=== PATIENT | female | born 1970 | race Caucasian/White ===

== ENCOUNTER → 2016-11-01 | Outpatient (REF) | payer OTHER ==
[~2016-11-01] MED LIST: /LOR25TA PO; ALBU17IN INH; CITA10TA2 PO; CLON0.5T PO; COLA100C2; CYCL10TA PO; DEME50TA; GEMF600T PO; HYDR7.5T38 PO; HYDRO50TAB PO; IBUP200T2 PO; KLON1TAB PO; LAMO100T PO; LAMO25CH PO; LOPI600T PO; LORA2TAB; MEDROL; METH10TA2 PO; NORCOTAB PO; PERC5TAB8; SOMA350T; SOMA350T PO; TIZANADINE PO; TRAZ100T; TYLE325T5 PO; VALI5TAB PO; VIST25CA PO; ZYPR10TA PO
== END | disposition home or self-care (01) ==
LOC: M LAB REF 16:43
PROVIDERS: ATTEND Physician Assistant
DX: L02.214 Cutaneous abscess of groin (principal)

== ENCOUNTER 2016-11-22 23:09 | Emergency (ER) | payer OTHER ==
--- NOTE | 2016-11-23 00:22 | EDDOCDS ---
Physician Documentation [facility] Name: Natan Baeza Age: 45 yrs Sex: Female : 1970 Arrival Date: 11/22/2016 Time: 23:09 Bed 11 Private MD: Ananth Sheets Disposition: 11/23/16 00:11 Discharged to Home/Self Care. Impression: Opioid abuse. - Condition is Stable. - Discharge Instructions: Opioid Withdrawal. - Medication Reconciliation, Local Pharmacy Hours form. - Follow up: Ananth Sheets; When: 2 - 3 days; Reason: Recheck today's complaints. Follow up: Addiction Services; When: 2 - 3 days; Reason: Recheck today's complaints. Follow up: [facility]; When: 2 - 3 days; Reason: Recheck today's complaints. - Problem is chronic. - Symptoms are unchanged. - Notes: You were seen in the ED requesting inpatient detox for your opioid abuse. Unfortunately this is not offered by [facility], however you were seen by social work and referrals for outpatient programs were provided - please call to arrange to be seen. Although offered outpatient medications to assist with withdrawal you have declined these at this time. Please call your psychiatrist and the referrals provided to you by social work in the morning to arrange to be seen for ongoing care. Return to the ED for any withdrawal symptoms, vomiting, loss of consciousness or any other concerns. Historical: - Allergies: cipro (Rash); Imitrexchest pain; - Home Meds: 1. lamotrigine 200mg in AM and PM, 100mg in midday Oral TChD (Last dose: 11/22/2016 14:30) 2. amantadine HCl 100 mg Oral cap 1 cap 2 times per day (Last dose: 11/22/2016 14:30) 3. prestique 50 mg twice a day (Last dose: 11/22/2016 14:30) 4. trazodone 25 mg Oral tab once daily 5. hydrocodone-acetaminophen 7.5-325 mg Oral tab 6. clonazepam 1 mg Oral tab 1 tab 3 times per day 7. carisoprodol 350 mg Oral tab 1 tab twice daily 8. propranolol 10 mg Oral tab 2 tabs twice a day - PMHx: Anxiety; Panic Attacks; Chronic Back pain; - PSHx: Ulner nerve repair, right arm; Tubal ligation; Back sugery; Benign tumor removed from throat; - Social history: Smoking status: Patient uses tobacco products, current every day smoker. No barriers to communication noted, The patient speaks fluent Burkinan, Speaks appropriately for age, Preferred Language: Burkinan. - Family history: Not pertinent. - : The pt / caregiver states he / she is not on anticoagulants. Home medication list is obtained from the patient. - Exposure Risk Screening:: None identified. 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 9 in. (175.26 cm) (R); 23:10 Body Mass Index 23.33 (71.67 kg, 175.26 cm) dd6 MDM: 23:49 Consult PFS/PSA/Software Configuration Engineer: Resources/Social Work ordered. br1 11/23 00:00 Consult PFS/PSA/Software Configuration Engineer: Resources/Social Work complete. br1 Signatures: Shalini CappsRN RN lf1 Evans Norton MD MD br1 Luann Young RN RN kas2 MTDD
--- NOTE | 2016-11-23 00:22 | EDDOCDS ---
Nurse's Notes [facility] Name: Natan Baeza Age: 45 yrs Sex: Female : 1970 Arrival Date: 11/22/2016 Time: 23:09 Bed 11 Private MD: Ananth Sheets Diagnosis: Opioid abuse Presentation: 11/22 23:20 Presenting complaint: Patient states: Pt reports she was instructed by [facility] and her 1 psychiatrist to report to the ED for detox from opiates (Vicodin, Oxycontin, Soma, Percocet, Morphine, Dilaudid, Morphine, Fentanyl) Pt. reports some are prescribed and some she obtains in other places. Pt. reports last use was 2 hours ago was 40mg Oxycontin and 3 Soma tabs. Pt. reports she has been using regularly since 2002. Pt reports she has chronic low back pain. Mental Health Triage Level: Level 1- Pt displays no suicidal or homicidal ideations and does not appear to be a danger to self or others. Adult Sepsis Screening: The patient does not have new or worsening altered mentation. Patient's respiratory rate is less than 22. Systolic blood pressure is greater than 100. Patient has a qSOFA score of 0- Negative Sepsis Screen. Suicide/Homicide risk assessment- the patient denies having any suicidal and/or homicidal ideations and does not present with any other emotional, behavioral or mental health complaints. Status: Patient is not a nutrition services assistant or dependent. Transition of care: patient was not received from another setting of care. 23:20 Acuity: NAVNEET Level 3 lf1 23:20 Method Of Arrival: Walkin/Carried/Asstd 1 Triage Assessment: 23:34 General: Appears distressed, Behavior is anxious, restless. Pain: Location: low back lf1 pain Pain currently is 4 out of 10 on a pain scale. HIV screening NA for this visit Offered previously. Neurological: Level of Consciousness is awake, alert, Oriented to person, place, time. EENT: No deficits noted. Respiratory: Respiratory effort is even, unlabored. GI: Denies nausea, vomiting. Derm: Skin is intact. Injury Description: No known injury. MARKETING AND OUTREACH COORDINATOR: 23:34 5, 1, Living 4, LMP 11/18/2016 1 Historical: - Allergies: cipro (Rash); Imitrexchest pain; - Home Meds: 1. lamotrigine 200mg in AM and PM, 100mg in midday Oral TChD (Last dose: 11/22/2016 14:30) 2. amantadine HCl 100 mg Oral cap 1 cap 2 times per day (Last dose: 11/22/2016 14:30) 3. prestique 50 mg twice a day (Last dose: 11/22/2016 14:30) 4. trazodone 25 mg Oral tab once daily 5. hydrocodone-acetaminophen 7.5-325 mg Oral tab 6. clonazepam 1 mg Oral tab 1 tab 3 times per day 7. carisoprodol 350 mg Oral tab 1 tab twice daily 8. propranolol 10 mg Oral tab 2 tabs twice a day - PMHx: Anxiety; Panic Attacks; Chronic Back pain; - PSHx: Ulner nerve repair, right arm; Tubal ligation; Back sugery; Benign tumor removed from throat; - Social history: Smoking status: Patient uses tobacco products, current every day smoker. No barriers to communication noted, The patient speaks fluent Singaporean, Speaks appropriately for age, Preferred Language: Singaporean. - Family history: Not pertinent. - : The pt / caregiver states he / she is not on anticoagulants. Home medication list is obtained from the patient. - Exposure Risk Screening:: None identified. Screenin:48 Screening information is obtained from the patient. Fall risk: No risks identified. kas2 Assistance ADL's: requires no assistance with activities of daily living. Abuse/DV Screen: The patient / caregiver reports he/she is: not in a situation that causes fear, pain or injury. Nutritional screening: No deficits noted. Advance Directives: Currently, there is no health care proxy. There is no active DNR order. There is no living will. There is no Power of Cover Stripper. home support is adequate. Assessment: 23:47 General: Appears in no apparent distress, comfortable, well nourished, well groomed, kas2 Behavior is appropriate for age, cooperative. Pain: Denies pain. Neurological: Level of Consciousness is awake, alert, Oriented to person, place, time. Cardiovascular: Rhythm is regular. Respiratory: Airway is patent Respiratory effort is even, unlabored, Respiratory pattern is regular, symmetrical, Breath sounds are clear bilaterally. Derm: Skin is intact, Skin is dry, Skin is pink, warm & dry. Skin temperature is warm. Social Work Consult: 11/23 00:12 Social Work Note: PSA met with pt to offer drug detox/rehab referral info, pt presents cl to ED c/o opiate abuse as well as other drugs, denies any SI/HI/AH/VH, denies ETOH abuse, has long hx of polysubstance abuse, has been in prior detox facilities in past. Pt reports she contacted [facility] whom instructed her to come to ED for "detox", ED MD and PSA explained detox not available at [facility], PSA offered referral info. Pt is accompanied by attentive friend, no safety issues identified, ED Physician offered meds for w/d sx's as well, pt to f/u with [facility] tomorrow to try to arrange drug tx, no further interventions required. Vital Signs: 11/22 23:10 BP 123 / 60; Pulse 88; Resp 18 S; Temp 97.4(T); Pulse Ox 100% on R/A; Weight 71.67 kg dd6 (R); Height 5 ft. 9 in. (175.26 cm) (R); 23:10 Body Mass Index 23.33 (71.67 kg, 175.26 cm) dd6 Vitals: 23:10 Log In Time: November 22, 2016 at 23:08. dd6 ED Course: 23:10 Patient visited by Suleiman Orlando PCA. dd6 23:10 Ananth Sheets is Private Physician. dd6 23:10 Patient moved to Waiting dd6 23:11 Patient moved to Pre RCE dd6 23:26 Triage Initiated lf1 23:37 Luann Young RN is Primary Nurse. lf1 23:37 Patient moved to 11 lf1 23:38 Evans Norton MD is Attending Physician. br1 23:47 Patient visited by Evans Norton MD. br1 23:48 Patient visited by Luann Young RN. kas2 11/23 00:10 Ananth Sheets is Referral Physician. br1 00:10 Addiction Services is Referral Physician. br1 00:10 [facility] is Referral Physician. br1 00:11 Patient visited by Luann Young RN. kas2 00:20 The patient / caregiver is instructed regarding the plan of care and ED course. kas2 00:20 No IV's were initiated during this patient's visit. No procedures done that require kas2 assistance. 00:21 Patient visited by Luann Young RN. kas2 Order Results: There are currently no results for this order. Outcome: 00:11 Discharge ordered by Provider. br1 00:20 Discharge Assessment: patient administered narcotics - no. The following High Risk kas2 Discharge criteria are identified: None. Discharged to home ambulatory, with friend. Condition: good Condition: stable Condition: improved. No special radiology studies were completed. Property :Personal belongings accompany Pt. 00:21 Patient left the ED. kas2 Signatures: Hunter Khan, PSA PSA cl Shalini CappsRN RN lf1 Evans Norotn MD MD br1 Suleiman Orlando, FACILITY MAINTENANCE MANAGER FACILITY MAINTENANCE MANAGER dd6 Luann Young,RN RN kas2 MTDD
--- NOTE | 2016-11-25 01:22 | EDDOCDS ---
Physician Documentation [facility] Name: Natan Baeza Age: 45 yrs Sex: Female : 1970 Arrival Date: 11/22/2016 Time: 23:09 Bed 11 Private MD: Ananth Sheets Disposition: 11/23/16 00:11 Discharged to Home/Self Care. Impression: Opioid abuse. - Condition is Stable. - Discharge Instructions: Opioid Withdrawal. - Medication Reconciliation, Local Pharmacy Hours form. - Follow up: Ananth Sheets; When: 2 - 3 days; Reason: Recheck today's complaints. Follow up: Addiction Services; When: 2 - 3 days; Reason: Recheck today's complaints. Follow up: [facility]; When: 2 - 3 days; Reason: Recheck today's complaints. - Problem is chronic. - Symptoms are unchanged. - Notes: You were seen in the ED requesting inpatient detox for your opioid abuse. Unfortunately this is not offered by [facility], however you were seen by social work and referrals for outpatient programs were provided - please call to arrange to be seen. Although offered outpatient medications to assist with withdrawal you have declined these at this time. Please call your psychiatrist and the referrals provided to you by social work in the morning to arrange to be seen for ongoing care. Return to the ED for any withdrawal symptoms, vomiting, loss of consciousness or any other concerns. Historical: - Allergies: cipro (Rash); Imitrexchest pain; - Home Meds: 1. lamotrigine 200mg in AM and PM, 100mg in midday Oral TChD (Last dose: 11/22/2016 14:30) 2. amantadine HCl 100 mg Oral cap 1 cap 2 times per day (Last dose: 11/22/2016 14:30) 3. prestique 50 mg twice a day (Last dose: 11/22/2016 14:30) 4. trazodone 25 mg Oral tab once daily 5. hydrocodone-acetaminophen 7.5-325 mg Oral tab 6. clonazepam 1 mg Oral tab 1 tab 3 times per day 7. carisoprodol 350 mg Oral tab 1 tab twice daily 8. propranolol 10 mg Oral tab 2 tabs twice a day - PMHx: Anxiety; Panic Attacks; Chronic Back pain; - PSHx: Ulner nerve repair, right arm; Tubal ligation; Back sugery; Benign tumor removed from throat; - Social history: Smoking status: Patient uses tobacco products, current every day smoker. No barriers to communication noted, The patient speaks fluent Maltese, Speaks appropriately for age, Preferred Language: Maltese. - Family history: Not pertinent. - : The pt / caregiver states he / she is not on anticoagulants. Home medication list is obtained from the patient. - Exposure Risk Screening:: None identified. MAPPING SPECIALIST: 11/22 23:34 5, 1, Living 4, LMP 11/18/2016 lf1 Vital Signs: 23:10 BP 123 / 60; Pulse 88; Resp 18 S; Temp 97.4(T); Pulse Ox 100% on R/A; Weight 71.67 kg / dd6 158.01 lbs (R); Height 5 ft. 9 in. (175.26 cm) (R); 23:10 Body Mass Index 23.33 (71.67 kg, 175.26 cm) dd6 MDM: 23:49 Consult PFS/PSA/Can Sterilizer: Resources/Social Work ordered. br1 11/23 00:00 Consult PFS/PSA/Can Sterilizer: Resources/Social Work complete. br1 09:21 T-Sheet-- Draft Copy was scanned into [employer] and attached to record. gb Signatures: Aliza Milner, Reg Reg gb Shalini Capps RN RN lf1 Evans Norton MD MD br1 Luann Young RN RN kas2 The chart was reviewed and I authenticate all verbal orders and agree with the evaluation and treatment provided.Attachments: 09:21 T-Sheet-- Draft Copy gb Chart Complete MTDD
--- NOTE | 2016-11-25 01:22 | EDDOCDS ---
[facility] Name: Natan Baeza Age: 45 yrs Sex: Female : 1970 Arrival Date: 11/22/2016 Time: 23:09 Bed 11 Private MD: Ananth Sheets Diagnosis: Opioid abuse Presentation: 11/22 23:20 Presenting complaint: Patient states: Pt reports she was instructed by [facility] and her 1 psychiatrist to report to the ED for detox from opiates (Vicodin, Oxycontin, Soma, Percocet, Morphine, Dilaudid, Morphine, Fentanyl) Pt. reports some are prescribed and some she obtains in other places. Pt. reports last use was 2 hours ago was 40mg Oxycontin and 3 Soma tabs. Pt. reports she has been using regularly since 2002. Pt reports she has chronic low back pain. Mental Health Triage Level: Level 1- Pt displays no suicidal or homicidal ideations and does not appear to be a danger to self or others. Adult Sepsis Screening: The patient does not have new or worsening altered mentation. Patient's respiratory rate is less than 22. Systolic blood pressure is greater than 100. Patient has a qSOFA score of 0- Negative Sepsis Screen. Suicide/Homicide risk assessment- the patient denies having any suicidal and/or homicidal ideations and does not present with any other emotional, behavioral or mental health complaints. Status: Patient is not a service girl or dependent. Transition of care: patient was not received from another setting of care. 23:20 Acuity: NAVNEET Level 3 lf1 23:20 Method Of Arrival: Walkin/Carried/Asstd 1 Triage Assessment: 23:34 General: Appears distressed, Behavior is anxious, restless. Pain: Location: low back lf1 pain Pain currently is 4 out of 10 on a pain scale. HIV screening NA for this visit Offered previously. Neurological: Level of Consciousness is awake, alert, Oriented to person, place, time. EENT: No deficits noted. Respiratory: Respiratory effort is even, unlabored. GI: Denies nausea, vomiting. Derm: Skin is intact. Injury Description: No known injury. 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 lamotrigine 200mg in AM and PM, 100mg in midday Oral TChD (Last dose: 11/22/2016 14:30) 2. amantadine HCl 100 mg Oral cap 1 cap 2 times per day (Last dose: 11/22/2016 14:30) 3. prestique 50 mg twice a day (Last dose: 11/22/2016 14:30) 4. trazodone 25 mg Oral tab once daily 5. hydrocodone-acetaminophen 7.5-325 mg Oral tab 6. clonazepam 1 mg Oral tab 1 tab 3 times per day 7. carisoprodol 350 mg Oral tab 1 tab twice daily 8. propranolol 10 mg Oral tab 2 tabs twice a day - PMHx: Anxiety; Panic Attacks; Chronic Back pain; - PSHx: Ulner nerve repair, right arm; Tubal ligation; Back sugery; Benign tumor removed from throat; - Social history: Smoking status: Patient uses tobacco products, current every day smoker. No barriers to communication noted, The patient speaks fluent [place]ian, Speaks appropriately for age, Preferred Language: [place]ian. - Family history: Not pertinent. - : The pt / caregiver states he / she is not on anticoagulants. Home medication list is obtained from the patient. - Exposure Risk Screening:: None identified. Screenin:48 Screening information is obtained from the patient. Fall risk: No risks identified. kas2 Assistance ADL's: requires no assistance with activities of daily living. Abuse/DV Screen: The patient / caregiver reports he/she is: not in a situation that causes fear, pain or injury. Nutritional screening: No deficits noted. Advance Directives: Currently, there is no health care proxy. There is no active DNR order. There is no living will. There is no Power of Kier Drier. home support is adequate. Assessment: 23:47 General: Appears in no apparent distress, comfortable, well nourished, well groomed, kas2 Behavior is appropriate for age, cooperative. Pain: Denies pain. Neurological: Level of Consciousness is awake, alert, Oriented to person, place, time. Cardiovascular: Rhythm is regular. Respiratory: Airway is patent Respiratory effort is even, unlabored, Respiratory pattern is regular, symmetrical, Breath sounds are clear bilaterally. Derm: Skin is intact, Skin is dry, Skin is pink, warm & dry. Skin temperature is warm. Social Work Consult: 11/23 00:12 Social Work Note: [facility] met with pt to offer drug detox/rehab referral info, pt presents cl to ED c/o opiate abuse as well as other drugs, denies any SI/HI/AH/VH, denies ETOH abuse, has long hx of polysubstance abuse, has been in prior detox facilities in past. Pt reports she contacted [facility] whom instructed her to come to ED for "detox", ED MD and PSA explained detox not available at [facility], PSA offered referral info. Pt is accompanied by attentive friend, no safety issues identified, ED Physician offered meds for w/d sx's as well, pt to f/u with [facility] tomorrow to try to arrange drug tx, no further interventions required. Vital Signs: 11/22 23:10 BP 123 / 60; Pulse 88; Resp 18 S; Temp 97.4(T); Pulse Ox 100% on R/A; Weight 71.67 kg dd6 (R); Height 5 ft. 9 in. (175.26 cm) (R); 23:10 Body Mass Index 23.33 (71.67 kg, 175.26 cm) dd6 Vitals: 23:10 Log In Time: November 22, 2016 at 23:08. dd6 ED Course: 23:10 Patient visited by Suleiman Orlando PCA. dd6 23:10 Ananth Sheets is Private Physician. dd6 23:10 Patient moved to Waiting dd6 23:11 Patient moved to Pre RCE dd6 23:26 Triage Initiated lf1 23:37 Luann Young RN is Primary Nurse. lf1 23:37 Patient moved to 11 lf1 23:38 Evans Norton MD is Attending Physician. br1 23:47 Patient visited by Evans Norton MD. br1 23:48 Patient visited by Luann Young RN. kas2 11/23 00:10 Ananth Sheets is Referral Physician. br1 00:10 Addiction Services is Referral Physician. br1 00:10 [facility] is Referral Physician. br1 00:11 Patient visited by Luann Young RN. kas2 00:20 The patient / caregiver is instructed regarding the plan of care and ED course. kas2 00:20 No IV's were initiated during this patient's visit. No procedures done that require kas2 assistance. 00:21 Patient visited by Luann Young RN. kas2 00:35 Patient name changed from Gayelynn\\S\\\\S\\Babyak\\S\\ to Gayelynn\\S\\ \\S\\Babyak. EDMS 09:21 T-Sheet-- Draft Copy was scanned into [employer] and attached to record. Order Results: There are currently no results for this order. Outcome: 00:11 Discharge ordered by Provider. br1 00:20 Discharge Assessment: patient administered narcotics - no. The following High Risk [facility]2 Discharge criteria are identified: None. Discharged to home ambulatory, with friend. Condition: good Condition: stable Condition: improved. No special radiology studies were completed. Property :Personal belongings accompany Pt. 00:21 Patient left the ED. kas2 Signatures: Dispatcher [employer] EDVT Hunter Khan, PSA PSA cl Aliza Milner, Reg Reg Shalini Capps,RN RN lf1 Evans Norton MD MD br1 Suleiman Orlando, GOLF PROFESSIONAL GOLF PROFESSIONAL dd6 Luann Young,RN RN kas2 Chart Complete MTDD
--- NOTE | 2016-11-25 01:22 | EDDOCDS ---
Physician Documentation [facility] Name: Natan Baeza Age: 45 yrs Sex: Female : 1970 Arrival Date: 11/22/2016 Time: 23:09 Bed 11 Private MD: Ananth Sheets Disposition: 11/23/16 00:11 Discharged to Home/Self Care. Impression: Opioid abuse. - Condition is Stable. - Discharge Instructions: Opioid Withdrawal. - Medication Reconciliation, Local Pharmacy Hours form. - Follow up: Ananth Sheets; When: 2 - 3 days; Reason: Recheck today's complaints. Follow up: Addiction Services; When: 2 - 3 days; Reason: Recheck today's complaints. Follow up: [facility]; When: 2 - 3 days; Reason: Recheck today's complaints. - Problem is chronic. - Symptoms are unchanged. - Notes: You were seen in the ED requesting inpatient detox for your opioid abuse. Unfortunately this is not offered by [facility], however you were seen by social work and referrals for outpatient programs were provided - please call to arrange to be seen. Although offered outpatient medications to assist with withdrawal you have declined these at this time. Please call your psychiatrist and the referrals provided to you by social work in the morning to arrange to be seen for ongoing care. Return to the ED for any withdrawal symptoms, vomiting, loss of consciousness or any other concerns. Historical: - Allergies: cipro (Rash); Imitrexchest pain; - Home Meds: 1. lamotrigine 200mg in AM and PM, 100mg in midday Oral TChD (Last dose: 11/22/2016 14:30) 2. amantadine HCl 100 mg Oral cap 1 cap 2 times per day (Last dose: 11/22/2016 14:30) 3. prestique 50 mg twice a day (Last dose: 11/22/2016 14:30) 4. trazodone 25 mg Oral tab once daily 5. hydrocodone-acetaminophen 7.5-325 mg Oral tab 6. clonazepam 1 mg Oral tab 1 tab 3 times per day 7. carisoprodol 350 mg Oral tab 1 tab twice daily 8. propranolol 10 mg Oral tab 2 tabs twice a day - PMHx: Anxiety; Panic Attacks; Chronic Back pain; - PSHx: Ulner nerve repair, right arm; Tubal ligation; Back sugery; Benign tumor removed from throat; - Social history: Smoking status: Patient uses tobacco products, current every day smoker. No barriers to communication noted, The patient speaks fluent Namibian, Speaks appropriately for age, Preferred Language: Namibian. - Family history: Not pertinent. - : The pt / caregiver states he / she is not on anticoagulants. Home medication list is obtained from the patient. - Exposure Risk Screening:: None identified. 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 9 in. (175.26 cm) (R); 23:10 Body Mass Index 23.33 (71.67 kg, 175.26 cm) dd6 MDM: 23:49 Consult PFS/PSA/Retail Performance Specialist: Resources/Social Work ordered. br1 11/23 00:00 Consult PFS/PSA/Retail Performance Specialist: Resources/Social Work complete. br1 09:21 T-Sheet-- Draft Copy was scanned into [employer] and attached to record. gb Signatures: Aliza Milner, Reg Reg gb Shalini Capps RN RN lf1 Evans Norton MD MD br1 Luann Young RN RN kas2 The chart was reviewed and I authenticate all verbal orders and agree with the evaluation and treatment provided.Attachments: 09:21 T-Sheet-- Draft Copy gb Chart Complete MTDD
== END 2016-11-23 00:21 | disposition home or self-care (01) ==
LOC: M ED 23:09
DX: F11.10 Opioid abuse, uncomplicated (principal); F41.9 Anxiety disorder, unspecified; G89.4 Chronic pain syndrome; M54.9 Dorsalgia, unspecified; F17.200 Nicotine dependence, unspecified, uncomplicated; Z79.899 Other long term (current) drug therapy; Z88.1 Allergy status to other antibiotic agents; Z88.8 Allergy status to other drugs, medicaments and biological substances

== ENCOUNTER → 2017-08-14 | Outpatient (CLI) | payer OTHER ==
[2017-08-14 11:50] LABS: MEAN CORPUSCULAR HEMOGLOBIN 32.5 pg (27.0-33.0); MEAN CORPUSCULAR HGB CONC 34.3 g/dl (32.0-36.5); MEAN CORPUSCULAR VOLUME 94.8 fl (80.0-96.0); WHITE BLOOD COUNT 8.2 10^3/uL (4.0-10.0)
[2017-08-14 12:22] LABS: ALBUMIN 3.9 GM/DL (3.2-5.2); ALBUMIN/GLOBULIN RATIO 1.15 (1.00-1.93); ALKALINE PHOSPHATASE 80 U/L (45-117); ALT/SGPT 15 U/L (12-78); ANION GAP 8 MEQ/L (8-16); AST/SGOT 7 U/L (15-37); BILIRUBIN,TOTAL 0.4 MG/DL (0.2-1.0); BLOOD UREA NITROGEN 4 MG/DL (7-18); CALCIUM LEVEL 8.7 MG/DL (8.5-10.1); CARBON DIOXIDE LEVEL 28 MEQ/L (21-32); CHLORIDE LEVEL 102 MEQ/L (98-107); CHOLESTEROL LEVEL 235 MG/DL (<200); CREATININE FOR GFR 0.87 MG/DL (0.55-1.02); GLOMERULAR FILTRATION RATE > 60.0 (>58); GLUCOSE, FASTING 78 MG/DL (70-105); POTASSIUM SERUM 4.1 MEQ/L (3.5-5.1); SODIUM LEVEL 138 MEQ/L (136-145); THYROXINE (T4) 8.3 UG/DL (4.5-12.0); TOTAL PROTEIN 7.3 GM/DL (6.4-8.2); TRIGLYCERIDES LEVEL 404 MG/DL (<150)
--- NOTE | 2017-08-14 22:46 | ECGEPIP ---
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 No significant change compared with 10/24/2016. Electronically Signed On 08-14-2017 22:46:20 EDT by Santiago Quintanilla
--- NOTE | 2017-08-15 01:58 | REP ---
Clinical: Chest pain. COPD. Comparison: 10/24/2016 . Technique: PA and lateral. Findings: The mediastinum and cardiac silhouette are normal. The lung cervantes are clear and without acute consolidation, effusion, or pneumothorax. The skeletal structures are intact and normal. Impression: 1. No acute cardiopulmonary process. Signed by Kendrick Null MD 08/15/2017 01:50 A
== END ==
LOC: M LAB 11:06
PROVIDERS: ATTEND Family Medicine
DX: J44.9 Chronic obstructive pulmonary disease, unspecified (principal); D64.9 Anemia, unspecified

== ENCOUNTER 2017-12-06 12:46 | Emergency (ER) | payer OTHER ==
[2017-12-06] MEDS: NORCO, ANEXSIA 5/325MG TABLET (HYDROcodone/ACETAMINOPHEN) PO (14:01)
== END 2017-12-06 14:50 | disposition home or self-care (01) ==
LOC: M ED 12:46
DX: S49.92XA Unspecified injury of left shoulder and upper arm, initial encounter (principal); X50.9XXA Other and unspecified overexertion or strenuous movements or postures, initial encounter; Y92.89 Other specified places as the place of occurrence of the external cause; F17.210 Nicotine dependence, cigarettes, uncomplicated; Z88.1 Allergy status to other antibiotic agents; Z88.8 Allergy status to other drugs, medicaments and biological substances; Z88.5 Allergy status to narcotic agent; Z98.890 Other specified postprocedural states
CPT/HCPCS: 73030

== ENCOUNTER 2018-03-17 17:36 | Emergency (ER) | payer SELFPAY, OTHER ==
[2018-03-17] MEDS: NS 1,000 ML IV (19:15)
[2018-03-17] MEDS: ONDANSETRON 4MG/2ML VIAL (J2405) IV (19:15)
[2018-03-17 19:16] LABS: BASO % 0.2 % (0.0-1.0); EOS % 0.1 % (0.0-3.0); HEMATOCRIT 37.2 % (36.0-47.0); HEMOGLOBIN 12.1 g/dl (12.0-15.5); IMMATURE GRANULOCYTE % 0.5 % (0-3.0); LYMPH % 7.4 % (24.0-44.0); MEAN CORPUSCULAR HEMOGLOBIN 31.2 pg (27.0-33.0); MEAN CORPUSCULAR HGB CONC 32.5 g/dl (32.0-36.5); MEAN CORPUSCULAR VOLUME 95.9 fl (80.0-96.0); MONO # 1.3 10^3/uL (0.0-0.8); MONO % 10.2 % (0.0-5.0); NEUTROPHILS # 10.8 10^3/uL (1.8-7.7); NEUTROPHILS % 81.6 % (36.0-66.0); PLATELET COUNT, AUTOMATED 243 10^3/uL (150-450); RED BLOOD COUNT 3.88 10^6/uL (4.00-5.40); RED CELL DISTRIBUTION WIDTH 14.8 % (11.5-14.5); WHITE BLOOD COUNT 13.2 10^3/uL (4.0-10.0)
[2018-03-17 19:25] LABS: KETONE, URINE AUTO RFX NEGATIVE (NEGATIVE); NITRITE, URINE AUTO RFX NEGATIVE (NEGATIVE); RBC, URINE AUTO RFX 34 /HPF (0-3); SPECIFIC GRAVITY UR AUTO RFX 1.015 (1.002-1.035); SQUAM EPITHELIAL CELL UR AURFX 2 /HPF (0-6)
[2018-03-17 19:26] LABS: LEUKOCYTE ESTERASE UR AUTO RFX TRACE (NEGATIVE); WBC, URINE AUTO RFX 29 /HPF (0-3)
[2018-03-17 19:47] LABS: ANION GAP 6 MEQ/L (8-16); BLOOD UREA NITROGEN 9 MG/DL (7-18); CARBON DIOXIDE LEVEL 27 MEQ/L (21-32); CHLORIDE LEVEL 105 MEQ/L (98-107); CREATININE FOR GFR 0.88 MG/DL (0.55-1.30); GLOMERULAR FILTRATION RATE > 60.0 (>58); GLUCOSE, FASTING 102 MG/DL (70-100); POTASSIUM SERUM 4.3 MEQ/L (3.5-5.1); SODIUM LEVEL 138 MEQ/L (136-145)
[2018-03-17 19:47] LABS: LACTIC ACID SEPSIS PROTOCOL 0.7 MMOL/L (0.4-2.0)
[2018-03-17] MEDS ORDERED: ISOVUE-370 76% 100ML VIAL (Q9967) As Ordered (20:08)
[2018-03-17] MEDS: MORPHINE 4 MG/ML 1ML VIAL/SYRINGE (J2270) IV (20:46)
[2018-03-17] MEDS: BACTRIM 160MG/800MG DS TAB PO (21:50)
== END 2018-03-17 21:56 | disposition home or self-care (01) ==
LOC: M ED 17:36
DX: N30.11 Interstitial cystitis (chronic) with hematuria (principal); N10 Acute pyelonephritis; R50.9 Fever, unspecified; F17.210 Nicotine dependence, cigarettes, uncomplicated; Z88.1 Allergy status to other antibiotic agents; Z88.2 Allergy status to sulfonamides
CPT/HCPCS: J2270

== ENCOUNTER 2018-06-17 16:30 | Emergency (ER) | payer SELFPAY ==
[2018-06-17] MEDS: ALBUTEROL SULFATE 2.5 MG/0.5 ML INH NEB SOLN NEB (17:15)
[2018-06-17] MEDS: KETOROLAC 30 MG/ML VIAL (J1885) IV (17:25)
[2018-06-17 17:38] LABS: BASO % 0.5 % (0.0-1.0); EOS % 0.3 % (0.0-3.0); HEMATOCRIT 42.1 % (36.0-47.0); HEMOGLOBIN 14.1 g/dl (12.0-15.5); IMMATURE GRANULOCYTE % 0.3 % (0-3.0); LYMPH # 3.4 10^3/uL (1.5-4.5); LYMPH % 42.8 % (24.0-44.0); MEAN CORPUSCULAR HEMOGLOBIN 31.6 pg (27.0-33.0); MEAN CORPUSCULAR HGB CONC 33.5 g/dl (32.0-36.5); MEAN CORPUSCULAR VOLUME 94.4 fl (80.0-96.0); MONO # 0.5 10^3/uL (0.0-0.8); MONO % 6.4 % (0.0-5.0); NEUTROPHILS # 3.9 10^3/uL (1.8-7.7); NEUTROPHILS % 49.7 % (36.0-66.0); PLATELET COUNT, AUTOMATED 274 10^3/uL (150-450); RED BLOOD COUNT 4.46 10^6/uL (4.00-5.40); RED CELL DISTRIBUTION WIDTH 13.7 % (11.5-14.5); WHITE BLOOD COUNT 7.8 10^3/uL (4.0-10.0)
[2018-06-17 17:41] LABS: KETONE, URINE AUTO RFX NEGATIVE (NEGATIVE); LEUKOCYTE ESTERASE UR AUTO RFX NEGATIVE (NEGATIVE); NITRITE, URINE AUTO RFX NEGATIVE (NEGATIVE); RBC, URINE AUTO RFX 1 /HPF (0-3); SPECIFIC GRAVITY UR AUTO RFX 1.005 (1.002-1.035); SQUAM EPITHELIAL CELL UR AURFX 1 /HPF (0-6); WBC, URINE AUTO RFX 1 /HPF (0-3)
[2018-06-17 17:51] LABS: CONTROL LINE HCG INT CTR LINE PRESENT; HCG, SERUM QUALITATIVE NEGATIVE (NEGATIVE)
[2018-06-17 17:59] LABS: ALBUMIN 4.1 GM/DL (3.2-5.2); ALKALINE PHOSPHATASE 79 U/L (45-117); ALT/SGPT 17 U/L (12-78); AMYLASE 55 U/L (25-115); ANION GAP 9 MEQ/L (8-16); AST/SGOT 13 U/L (7-37); BILIRUBIN,DIRECT < 0.1 MG/DL (0.0-0.2); BILIRUBIN,TOTAL 0.3 MG/DL (0.2-1.0); BLOOD UREA NITROGEN 8 MG/DL (7-18); CARBON DIOXIDE LEVEL 26 MEQ/L (21-32); CHLORIDE LEVEL 104 MEQ/L (98-107); CREATININE FOR GFR 0.84 MG/DL (0.55-1.30); GLOMERULAR FILTRATION RATE > 60.0 (>58); GLUCOSE, FASTING 80 MG/DL (70-100); LIPASE 126 U/L (73-393); POTASSIUM SERUM 4.5 MEQ/L (3.5-5.1); SODIUM LEVEL 139 MEQ/L (136-145); TOTAL PROTEIN 8.2 GM/DL (6.4-8.2)
[2018-06-17] MEDS: MORPHINE 4 MG/ML 1ML VIAL/SYRINGE (J2270) IV ×2 (18:38→21:34)
[2018-06-17] MEDS: diphenhydrAMINE INJ 50MG/ML VIAL (J1200) IV (21:21)
[2018-06-17] MEDS: OXYCODONE/APAP 5MG/325MG(BULK FOR ED) 1 TABLET PO (23:03)
== END 2018-06-17 23:05 | disposition home or self-care (01) ==
LOC: M ED 16:30
DX: K83.8 Other specified diseases of biliary tract (principal); R10.9 Unspecified abdominal pain; K82.8 Other specified diseases of gallbladder; E78.5 Hyperlipidemia, unspecified; K56.0 Paralytic ileus; F41.9 Anxiety disorder, unspecified; F32.9 Major depressive disorder, single episode, unspecified; Z72.0 Tobacco use; Z88.8 Allergy status to other drugs, medicaments and biological substances; Z88.5 Allergy status to narcotic agent
CPT/HCPCS: J2270

== ENCOUNTER → 2018-06-19 | Outpatient (CLI) | payer SELFPAY | LOC: M RAD 12:51 | DX: K83.1 Obstruction of bile duct (principal) ==

== ENCOUNTER 2018-11-13 22:07 | Emergency (ER) | payer MEDICAID, SELFPAY ==
[~2018-11-13] VITALS: Ht 175.3 cm; Wt 70.5 kg
[2018-11-13 22:07] VITALS: BP 107/53
[~2018-11-13 22:07] MED LIST changes: +BACT800T5 PO; +BENA25CA4 PO; +IBUP-1022 PO; +NITR-67 PO; +PHEN-501 PO; +VICO5TAB16 PO
[2018-11-13] MEDS ORDERED: ONDANSETRON 4MG/2ML VIAL (J2405) IV ONE (22:45)
[2018-11-13] MEDS ORDERED: NS 1,000 ML IV ONE (22:45)
[2018-11-13] MEDS ORDERED: KETOROLAC 30 MG/ML VIAL (J1885) IV ONE (22:45)
[2018-11-13 23:06] LABS: BASO % 0.4 % (0.0-1.0); EOS % 0.6 % (0.0-3.0); HEMATOCRIT 39.3 % (36.0-47.0); LYMPH # 2.2 10^3/uL (1.5-4.5); LYMPH % 32.3 % (24.0-44.0); MEAN CORPUSCULAR HEMOGLOBIN 31.8 pg (27.0-33.0); MEAN CORPUSCULAR HGB CONC 33.1 g/dl (32.0-36.5); MEAN CORPUSCULAR VOLUME 96.1 fl (80.0-96.0); MONO # 0.6 10^3/uL (0.0-0.8); MONO % 8.1 % (0.0-5.0); NEUTROPHILS % 58.3 % (36.0-66.0); PLATELET COUNT, AUTOMATED 206 10^3/uL (150-450); RED BLOOD COUNT 4.09 10^6/uL (4.00-5.40); WHITE BLOOD COUNT 6.8 10^3/uL (4.0-10.0)
[2018-11-13 23:37] LABS: ALBUMIN 3.9 GM/DL (3.2-5.2); ALT/SGPT 19 U/L (12-78); AMYLASE 37 U/L (25-115); BILIRUBIN,DIRECT 0.1 MG/DL (0.0-0.2); BILIRUBIN,TOTAL 0.3 MG/DL (0.2-1.0); BLOOD UREA NITROGEN 8 MG/DL (7-18); CALCIUM LEVEL 8.4 MG/DL (8.5-10.1); CARBON DIOXIDE LEVEL 28 MEQ/L (21-32); CHLORIDE LEVEL 101 MEQ/L (98-107); CREATININE FOR GFR 0.84 MG/DL (0.55-1.30); GLOMERULAR FILTRATION RATE > 60.0 (>58); GLUCOSE, FASTING 74 MG/DL (70-100); LIPASE 92 U/L (73-393); POTASSIUM SERUM 3.9 MEQ/L (3.5-5.1); SODIUM LEVEL 136 MEQ/L (136-145)
[2018-11-13] MEDS ORDERED: ZOFR4TAB16 PO (23:48)
[2018-11-13] MEDS ORDERED: NORCOTAB PO (23:48)
[2018-11-14] MEDS ORDERED: NORCO 5/325MG TABLET (BULK FOR ED) PO ONE
--- NOTE | 2018-11-14 00:24 | REPVR ---
EXAM: US Abdomen Limited, Right Upper Quadrant EXAM DATE/TIME: 11/13/2018 11:36 PM CLINICAL HISTORY: 47 years old, female; Pain; Abdominal pain; Acute; Additional info: Ruq pain TECHNIQUE: Real-time ultrasound of the abdomen with image documentation. Examination was focused on the right upper quadrant. COMPARISON: GALLBLADDER US 06/17/2018 6:51 PM FINDINGS: Liver: Mildly echogenic, suggesting fatty infiltration. Gallbladder: Small echogenic foci in the gallbladder wall with associated comet tail artifact, similar to prior and consistent with adenomyomatosis. No gallstones. No gallbladder wall thickening or pericholecystic fluid. Negative sonographic Morin's sign, as per the performing kiln drawer. Common bile duct: Mild common bile duct dilatation to approximately 9 mm, similar to prior. No stones. Pancreas: Unremarkable as visualized. Right kidney: No mass. No definite stones. No hydronephrosis. IMPRESSION: 1. Small echogenic foci in the gallbladder wall with associated comet tail artifact, similar to prior and consistent with adenomyomatosis 2. Mild common bile duct dilatation to approximately 9 mm, similar to prior. Correlate with LFTs. 3. Mild hepatic steatosis. Electronically signed by: Toby Rosas On 11/14/2018 00:23:32 AM
--- NOTE | 2018-11-14 11:39 | ED PDOC ---
Post-Departure Follow-Up lilly heredia and fabiola faxed formal report of us for fu Anny Burnett MD Nov 14, 2018 11:39
== END 2018-11-14 00:12 | disposition home or self-care (01) ==
LOC: M ED 22:07
DX: R10.11 Right upper quadrant pain (principal); R11.2 Nausea with vomiting, unspecified; R93.2 Abnormal findings on diagnostic imaging of liver and biliary tract; Z88.1 Allergy status to other antibiotic agents; Z88.8 Allergy status to other drugs, medicaments and biological substances
CPT/HCPCS: 76705; 80048; 80076; 82150; 83690; 85025; 96374; 96375; 99283; J1885; J2405

== ENCOUNTER → 2018-12-13 | Outpatient (CLI) | payer MEDICAID ==
[~2018-12-13] MED LIST changes: +ZOFR4TAB16 PO
--- NOTE | 2018-12-13 11:34 | REP ---
HIDA SCAN WITH GALLBLADDER EJECTION FRACTION: Following the intravenous administration of 6.2 mCi of technetium 99m mebrofenin, multiple images of the right upper quadrant are performed every 5 minutes for a period of 1 hour. The gallbladder is first visualized at 15 minutes post injection and there is biliary to bowel transit at that time as well with no evidence of cholecystitis. At the 1 hour rosanna, 8 ounces of Ensure Enlive is ingested and further imaging performed for 1 hour. Gallbladder activity is measured and the gallbladder ejection fraction is calculated to be 91%. IMPRESSION: Normal gallbladder ejection fraction. Electronically Signed by Oscar Navarrete MD 12/14/2018 10:19 A
== END ==
LOC: M RAD 07:52
PROVIDERS: ATTEND Surgery
DX: R10.11 Right upper quadrant pain (principal)

== ENCOUNTER 2019-04-19 11:33 | Inpatient (IN) | payer OTHER, SELFPAY ==
[~2019-04-19] VITALS: Ht 175.3 cm; Wt 77.9 kg
[~2019-04-19 11:33] MED LIST changes: +CLON1TAB8 PO; +HYDR-3715 PO; +HYDR-4274 PO; -HYDRO50TAB PO; -VICO5TAB16 PO; +VICO5TAB17 PO
[2019-04-19] MEDS ORDERED: VENL75CA47 PO (12:07)
[2019-04-19] MEDS ORDERED: ALBUTEROL SULFATE 2.5 MG/0.5 ML INH NEB SOLN INH ONE (12:15)
[2019-04-19] MEDS ORDERED: dexameTHASONE 20 MG/5 ML VIAL (J1100) IV ONE (12:15)
[2019-04-19] MEDS ORDERED: NS 1,000 ML IV ONE (12:15)
[2019-04-19] MEDS ORDERED: IPRATROPIUM 0.5MG/ALBUTEROL 2.5MG INH SOL UD 3ML (DUONEB)(J7620) NEB ONE (12:15)
[2019-04-19 12:51] LABS: ABG BASE EXCESS 4.6 (-2.0-2.0); ABG HCO3 29.2 MEQ/L (22.0-26.0); ABG O2 SATURATION 92.4 % (95.0-99.0); ABG PARTIAL PRESSURE CO2 43.8 mmHg (35.0-45.0); ABG STANDARD HCO3 28.4 MEQ/L (22.0-26.0); ABG TOTAL CO2 30.6 MEQ/L (22.0-29.0); ABG pH (ARTERIAL) 7.442 UNITS (7.350-7.450)
[2019-04-19 13:40] LABS: BASO # 0.1 10^3/uL (0.0-0.2); BASO % 0.4 % (0.0-1.0); EOS % 0.2 % (0.0-3.0); HEMATOCRIT 35.6 % (36.0-47.0); HEMOGLOBIN 11.5 g/dl (12.0-15.5); LYMPH # 1.5 10^3/uL (1.5-4.5); LYMPH % 11.3 % (24.0-44.0); MEAN CORPUSCULAR HEMOGLOBIN 32.3 pg (27.0-33.0); MEAN CORPUSCULAR HGB CONC 32.3 g/dl (32.0-36.5); MONO # 1.1 10^3/uL (0.0-0.8); MONO % 8.5 % (0.0-5.0); NEUTROPHILS # 10.2 10^3/uL (1.8-7.7); NEUTROPHILS % 78.6 % (36.0-66.0); PLATELET COUNT, AUTOMATED 200 10^3/uL (150-450); RED BLOOD COUNT 3.56 10^6/uL (4.00-5.40)
[2019-04-19 13:40] LABS: PROTHROMBIN TIME 15.9 SECONDS (11.8-14.0)
[2019-04-19 13:41] LABS: PARTIAL THROMBOPLASTIN TIME 37.2 SECONDS (25.0-38.4)
[2019-04-19 14:00] LABS: D-DIMER QUANT > 4000 ng/ml (<500)
[2019-04-19 14:01] LABS: ALBUMIN 2.9 GM/DL (3.2-5.2); ALT/SGPT 12 U/L (12-78); BILIRUBIN,DIRECT 0.1 MG/DL (0.0-0.2); BILIRUBIN,TOTAL 0.6 MG/DL (0.2-1.0); BLOOD UREA NITROGEN 26 MG/DL (7-18); CALCIUM LEVEL 8.2 MG/DL (8.5-10.1); CARBON DIOXIDE LEVEL 28 MEQ/L (21-32); CHLORIDE LEVEL 102 MEQ/L (98-107); CK-MB VALUE MASS 1.6 NG/ML (<3.6); CPK CREATINE PHOSPHOKINASE 176 U/L (26-192); CREATININE FOR GFR 0.99 MG/DL (0.55-1.30); GLOMERULAR FILTRATION RATE > 60.0 (>51); GLUCOSE, FASTING 76 MG/DL (70-100); MB/CK RELATIVE INDEX 0.91 (< OR =4); NT-PRO BNP 1711 PG/ML (<125); POTASSIUM SERUM 4.5 MEQ/L (3.5-5.1); SODIUM LEVEL 138 MEQ/L (136-145); THYROID STIMULATING HORMONE 0.711 uIU/ML (0.358-3.740); TOTAL PROTEIN 6.3 GM/DL (6.4-8.2); TROPONIN I < 0.02 NG/ML (< 0.10)
[2019-04-19] MEDS ORDERED: KETOROLAC 30 MG/ML VIAL (J1885) IV ONE (14:45)
--- NOTE | 2019-04-19 14:48 | REP ---
Chest x-ray: Portable exam. History: Dyspnea and cough. Hemoptysis. Comparison chest x-ray June 17, 2018. Findings: There is extensive infiltrate throughout the right upper and lower lobes. Interstitial markings are prominent in the left base. Findings are most compatible with a fairly large area of pneumonia in the right lung. Early involvement of the left cannot be excluded. Heart is not enlarged. EKG electrodes are seen. Impression: Extensive infiltrate right lung most consistent with pneumonia. Interstitial markings are prominent on the left as well. Electronically Signed by Duong Dumont MD 04/19/2019 02:39 P
[2019-04-19] MEDS ORDERED: cefTRIAXone SOD 1 GM in D5W MINI-BAG PLUS 50 ML IV ONE (15:30)
[2019-04-19] MEDS ORDERED: ISOVUE-370 76% 100ML VIAL (Q9967) As Ordered ONE (15:35)
--- NOTE | 2019-04-19 16:03 | REP ---
CT of the chest with IV contrast: Comparison is the portable chest, plain film study performed earlier today. There is a large confluent alveolar infiltrate involving the right upper lobe, middle lobe and lower lobe. There is no pleural effusion. The left lung is clear. There is no embolus in the pulmonary trunk or central pulmonary arteries. There is no embolus in the pulmonary lobe or segment branches. There is no mediastinal lymph node enlargement. There are mildly enlarged right hilar nodes. There is no axillary lymph node enlargement. The thoracic aorta is unremarkable. Cardiac size is normal. The visualized upper abdominal contents are unremarkable. Impression: There are no pulmonary emboli. There are is a large alveolar infiltrate involving the right upper, middle and lower lobes. There is no pleural effusion. Electronically Signed by Oscar Barbosa MD 04/19/2019 03:54 P
[2019-04-19] MEDS ORDERED: PROC10TA4 PO (16:22)
[2019-04-19] MEDS ORDERED: MOBI4TAB PO (16:22)
[2019-04-19] MEDS ORDERED: BENA25CA4 PO (16:22)
[2019-04-19] MEDS ORDERED: NIGH1CAP PO (16:24)
[2019-04-19] MEDS ORDERED: PROCHLORPERAZINE 5 MG TAB (S0183) PO PRN (17:00)
[2019-04-19] MEDS ORDERED: ALBUTEROL SULFATE 2.5 MG/0.5 ML INH NEB SOLN INH PRN (17:00)
--- NOTE | 2019-04-19 17:55 | HPE ---
DATE OF ADMISSION: 04/19/2019 PRIMARY CARE PROVIDER: Dr. Jennifer Sheets ATTENDING PHYSICIAN: Hospitalist group. CHIEF COMPLAINT: Right upper, middle and lower lobe pneumonia, community-acquired. HISTORY OF PRESENT ILLNESS: Natan Baeza is a 48-year-old female admitted to the hospitalist service with severe community-acquired pneumonia associated with hypoxemia and hypotension. She has been in poor health for the past week with right flank pain, cough and weakness. She felt so fatigued that she "slept for 24 hours" the day prior to admission. She still felt sick today so she came to the emergency room. Imaging studies were extensively done by the emergency room physician showed right upper, middle and lobe pneumonia. She is being admitted for further treatment. She is requiring supplemental oxygen to maintain adequate oxidation. Her systolic pressures were in the 90s when I was seeing her in the emergency room. PAST MEDICAL HISTORY: 1. Tobacco abuse; smokes a pack of cigarettes a day. 2. She has chronic anxiety disorder and is on daily Klonopin for this. 3. She has arthritis in her knees and takes Mobic. 4. She used to have chronic pain syndrome and used to go to the pain clinic, but she says she has not needed to go there in quite a while. 5. Recently had a workup for right upper quadrant pain; was found to have adenomyomatosis of the gallbladder, but no cholecystitis. SURGICAL HISTORY: 1. She had a right oropharyngeal mass biopsy that showed no malignancy; that was in 2009. 2. It sounds like she had a laminectomy in the past. 3. She had a number of pain blocks done in the pain clinic about 10 years ago. MEDICATIONS: - Klonopin 1 mg three times a day as needed for anxiety - Benadryl 50 mg at bedtime - meloxicam 7.5 mg twice a day as needed - Compazine 10 mg three times a day as needed for nausea - venlafaxine ER 75 mg twice a day ALLERGIES: QUINOLONES, ATORVASTATIN, ERYTHROMYCIN, HALDOL, SUMATRIPTAN. REVIEW OF SYSTEMS: No epistaxis, rectal bleeding, hematemesis. No chest pain, palpitations, syncope. FAMILY HISTORY: Noncontributory. SOCIAL HISTORY: A pack per day smoker. She is . 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 No alcohol use. IMMUNIZATIONS: She says she had a Pneumovax, but it was many years ago. PHYSICAL EXAMINATION: VITAL SIGNS: Per flow sheet. GENERAL APPEARANCE: Alert, conversant, no distress. HEENT: Pupils equal and react to light. Tympanic membranes (TMs) and oropharynx benign. NECK: No masses. LUNGS: Rhonchi, wheezes and decreased breath sounds right side diffusely. HEART: Regular rhythm. No murmur. ABDOMEN: Soft, nontender. No masses. EXTREMITIES: No clubbing, cyanosis or edema. Normal strength in the arms and legs. LABORATORIES: White count 13,000 with 78% neutrophils, hemoglobin 11.5, platelets 200. Sodium 138, potassium 4.5, BUN 26, creatinine 0.9, glucose 76. She had a brain natriuretic peptide (BNP) done; it was 1711. She had a D-dimer done; it was over 4000. Arterial blood gas (ABG) shows 7.4/54/88. CT angiogram showed no pulmonary embolism. She had large alveolar infiltrate upper, middle and lower lobes. No effusion. IMPRESSION: 1. Severe community-acquired pneumonia. She will be admitted to the progressive care unit (PCU) bed. She will be on the hospitalist service. We will start Rocephin 2 grams intravenous (IV) daily, doxycycline 100 mg twice a day, and empiric treatment with Solu-Medrol 40 mg IV for five days. Nebulizer and bronchodilator has been ordered. Early immobilization advised. Supplemental oxygen to maintain oxygenation greater than 90%. 2. Hypotension. IV saline has been ordered. Daily labs have been ordered. 3. Chronic anxiety disorder. Continue her Klonopin on a as needed basis. Continue venlafaxine. 4. Deep venous thrombosis (DVT) prophylaxis. Lovenox has been ordered.
[2019-04-19 18:15] VITALS: BP 96/49
[2019-04-19] MEDS: clonazePAM 1 MG TAB PO PRN (18:33)
[2019-04-19] MEDS: DOXYCYCLINE HYCLATE 100 MG in D5W MINI-BAG PLUS 100 ML IV SCH (18:34)
[2019-04-19 20:00] VITALS: BP 102/44
[2019-04-19] MEDS: diphenhydrAMINE 50 MG CAP PO SCH (21:30)
[2019-04-19] MEDS: VENLAFAXINE **XR** 75MG CAPSULE PO SCH (21:30)
[2019-04-20] VITALS: BP 101/49
[2019-04-20 04:00] VITALS: BP 100/60
[2019-04-20 05:02] LABS: BASO % 0.1 % (0.0-1.0); HEMATOCRIT 31.4 % (36.0-47.0); LYMPH # 0.8 10^3/uL (1.5-4.5); MEAN CORPUSCULAR HGB CONC 31.8 g/dl (32.0-36.5); MEAN CORPUSCULAR VOLUME 97.2 fl (80.0-96.0); MONO # 0.7 10^3/uL (0.0-0.8); MONO % 5.4 % (0.0-5.0); NEUTROPHILS # 11.8 10^3/uL (1.8-7.7); PLATELET COUNT, AUTOMATED 213 10^3/uL (150-450); RED BLOOD COUNT 3.23 10^6/uL (4.00-5.40); WHITE BLOOD COUNT 13.8 10^3/uL (4.0-10.0)
[2019-04-20 05:20] LABS: BLOOD UREA NITROGEN 25 MG/DL (7-18); CALCIUM LEVEL 7.8 MG/DL (8.5-10.1); CARBON DIOXIDE LEVEL 31 MEQ/L (21-32); CHLORIDE LEVEL 105 MEQ/L (98-107); CREATININE FOR GFR 0.73 MG/DL (0.55-1.30); GLOMERULAR FILTRATION RATE > 60.0 (>51); GLUCOSE, FASTING 94 MG/DL (70-100); POTASSIUM SERUM 4.9 MEQ/L (3.5-5.1); SODIUM LEVEL 140 MEQ/L (136-145)
[2019-04-20] MEDS: DOXYCYCLINE HYCLATE 100 MG in D5W MINI-BAG PLUS 100 ML IV SCH ×2 (05:22→17:14)
[2019-04-20 08:00] VITALS: BP 110/80
[2019-04-20] MEDS: methylPREDNISolone INJ 40 MG/1 ML VIAL (J2920) IV SCH (09:21)
[2019-04-20] MEDS: VENLAFAXINE **XR** 75MG CAPSULE PO SCH ×2 (09:21→20:50)
[2019-04-20] MEDS: ENOXAPARIN 40 MG/0.4 ML SYRINGE (J1650) SC SCH (09:21)
[2019-04-20] MEDS: clonazePAM 1 MG TAB PO PRN (09:26)
[2019-04-20] MEDS: guaiFENesin ER 600 MG TAB PO SCH ×2 (10:53→20:51)
[2019-04-20 12:00] VITALS: BP 102/55
[2019-04-20] MEDS: IPRATROPIUM 0.5MG/ALBUTEROL 2.5MG INH SOL UD 3ML (DUONEB)(J7620) NEB SCH ×2 (13:49→21:00)
[2019-04-20] MEDS: cefTRIAXone SOD 2 GM in D5W MINI-BAG PLUS 50 ML IV SCH (15:55)
[2019-04-20 16:00] VITALS: BP 103/52
--- NOTE | 2019-04-20 16:06 | IPNPDOC ---
Date Seen The patient was seen on 04/20/19. Progress Note SUBJECTIVE: Patient is a 48-year-old female admitted with right-sided pneumonia. She continues with cough, congestion and pain to the right side of her chest. She has not had fever overnight. OBJECTIVE PHYSICAL EXAMINATION: VITAL SIGNS: Please see below. GENERAL: Patient is uncomfortable and ill-appearing HEENT: Neck is supple, no adenopathy or thyromegaly, good dentition, mild scleral injection CARDIOVASCULAR: Regular rate and rhythm with no appreciable murmur. RESPIRATORY: Patient has hoarse voice, she has coarse breath sounds and wheezing to the right side, pain is elicited to cough. ABDOMINAL: Soft, nontender, nondistended, positive bowel tones EXTREMITIES: No peripheral edema or lesions, pedal pulses are palpable NEUROLOGICAL: No focal neuromotor or sensory deficits PSYCHOLOGICAL: Patient is calm and cooperative and appropriate LABORATORY DATA, IMAGING STUDIES, MICROBIOLOGY: Please see below. Echocardiogram: N. DVT prophylaxis ordered?: Y ASSESSMENT/PLAN: 1. Sepsis--patient has a sofa score of 1. However, she has other signs of sepsis with leukocytosis,hypotension, tachycardia and hypoxia. She is receiving IV fluids and empiric antibiotics. Blood and sputum culture results are pending. 2. Community-acquired pneumonia--the patient has right-sided infiltrates on c hest x-ray. There is associated acute hypoxic respiratory failure. She is receiving supplemental oxygen, nebulization treatments, and empiric antibiotics in the form of vancomycin and doxycycline. She is also receiving Mucinex to help mobilize her secretions. DISPOSITION: . VS, I&O, 24H, [facility] Vital Signs/I&O Vital Signs Date Time Temp Pulse Resp B/P (MAP) Pulse Ox O2 Delivery O2 Flow Rate FiO2 04/20/19 12:00 3.0 04/20/19 12:00 96.6 76 18 102/55 (71) 94 04/19/19 14:45 Nasal Cannula I&O- Last 24 Hours up to 6 AM 04/20/19 06:00 Intake Total 1340 ml Output Total 0 ml Balance 1340 ml Laboratory Data 24H LABS Laboratory Tests 2 04/20/19 04:26: Immature Granulocyte % (Auto) 2.5, White Blood Count 13.8H, Red Blood Count 3.23L, Hemoglobin 10.0L, Hematocrit 31.4L, Mean Corpuscular Volume 97.2H, Mean Corpuscular Hemoglobin 31.0, Mean Corpuscular Hemoglobin Concent 31.8L, Red Cell Distribution Width 13.6, Platelet Count 213, Neutrophils (%) (Auto) 86.0H, Lymphocytes (%) (Auto) 6.0L, Monocytes (%) (Auto) 5.4H, Eosinophils (%) (Auto) 0.0, Basophils (%) (Auto) 0.1, Neutrophils # (Auto) 11.8H, Lymphocytes # (Auto) 0.8L, Monocytes # (Auto) 0.7, Eosinophils # (Auto) 0.0, Basophils # (Auto) 0.0, Nucleated Red Blood Cells % (auto) 0.0, Anion Gap 4L, Glomerular Filtration Rate > 60.0, Blood Urea Nitrogen 25H, Creatinine 0.73, Sodium Level 140, Potassium Level 4.9, Chloride Level 105, Carbon Dioxide Level 31, Calcium Level 7.8L CBC/BMP Laboratory Tests 04/20/19 04:26 Red Blood Count 3.23 L, Mean Corpuscular Volume 97.2 H, Mean Corpuscular Hemoglobin 31.0, Mean Corpuscular Hemoglobin Concent 31.8 L, Red Cell Distribution Width 13.6, Neutrophils (%) (Auto) 86.0 H, Lymphocytes (%) (Auto) 6.0 L, Monocytes (%) (Auto) 5.4 H, Eosinophils (%) (Auto) 0.0, Basophils (%) (Auto) 0.1, Neutrophils # (Auto) 11.8 H, Lymphocytes # (Auto) 0.8 L, Monocytes # (Auto) 0.7, Eosinophils # (Auto) 0.0, Basophils # (Auto) 0.0, Calcium Level 7.8 L Microbiology Microbiology 04/19/19 Blood Culture - Preliminary, Resulted No growth after 24 hours . All specim... 04/19/19 Blood Culture - Preliminary, Resulted No growth after 24 hours . All specim... 04/19/19 Respiratory Virus Panel (PCR) (ELEANOR) - Final, Complete 04/19/19 Gram Stain - Final, Resulted 04/19/19 Sputum Culture, Resulted Pending FOSTER HAQUE MD Apr 20, 2019 16:06
[2019-04-20 20:00] VITALS: BP 104/53
[2019-04-20] MEDS: diphenhydrAMINE 50 MG CAP PO SCH (20:50)
[2019-04-21] VITALS (7 sets, daily range): BP systolic 104–180; BP diastolic 51–82
[2019-04-21] MEDS: IPRATROPIUM 0.5MG/ALBUTEROL 2.5MG INH SOL UD 3ML (DUONEB)(J7620) NEB SCH ×4 (01:46→20:13)
[2019-04-21 05:20] LABS: BASO % 0.2 % (0.0-1.0); EOS % 0.2 % (0.0-3.0); HEMATOCRIT 31.3 % (36.0-47.0); HEMOGLOBIN 9.9 g/dl (12.0-15.5); LYMPH # 2.1 10^3/uL (1.5-4.5); LYMPH % 17.1 % (24.0-44.0); MEAN CORPUSCULAR HEMOGLOBIN 30.7 pg (27.0-33.0); MEAN CORPUSCULAR HGB CONC 31.6 g/dl (32.0-36.5); MEAN CORPUSCULAR VOLUME 96.9 fl (80.0-96.0); MONO # 0.6 10^3/uL (0.0-0.8); NEUTROPHILS % 73.9 % (36.0-66.0); PLATELET COUNT, AUTOMATED 222 10^3/uL (150-450); RED BLOOD COUNT 3.23 10^6/uL (4.00-5.40); WHITE BLOOD COUNT 12.2 10^3/uL (4.0-10.0)
[2019-04-21 05:49] LABS: BLOOD UREA NITROGEN 17 MG/DL (7-18); CALCIUM LEVEL 8.9 MG/DL (8.5-10.1); CARBON DIOXIDE LEVEL 29 MEQ/L (21-32); CHLORIDE LEVEL 107 MEQ/L (98-107); CREATININE FOR GFR 0.74 MG/DL (0.55-1.30); GLOMERULAR FILTRATION RATE > 60.0 (>51); GLUCOSE, FASTING 68 MG/DL (70-100); POTASSIUM SERUM 3.9 MEQ/L (3.5-5.1); SODIUM LEVEL 141 MEQ/L (136-145)
[2019-04-21] MEDS: DOXYCYCLINE HYCLATE 100 MG in D5W MINI-BAG PLUS 100 ML IV SCH ×2 (06:23→17:01)
--- NOTE | 2019-04-21 06:37 | ECGEPIP ---
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
[2019-04-21] MEDS: methylPREDNISolone INJ 40 MG/1 ML VIAL (J2920) IV SCH (08:25)
[2019-04-21] MEDS: guaiFENesin ER 600 MG TAB PO SCH ×2 (08:25→20:23)
[2019-04-21] MEDS: VENLAFAXINE **XR** 75MG CAPSULE PO SCH ×2 (08:25→20:22)
[2019-04-21] MEDS: ENOXAPARIN 40 MG/0.4 ML SYRINGE (J1650) SC SCH (08:26)
[2019-04-21] MEDS: clonazePAM 1 MG TAB PO PRN (08:27)
[2019-04-21] MEDS ORDERED: FLUC10TA PO (10:19)
[2019-04-21] MEDS ORDERED: MUCI600T31 PO (10:19)
[2019-04-21] MEDS ORDERED: CEFU50TA PO (10:19)
[2019-04-21] MEDS: cefTRIAXone SOD 2 GM in D5W MINI-BAG PLUS 50 ML IV SCH (16:21)
--- NOTE | 2019-04-21 17:36 | IPNPDOC ---
Text Note Date of Service The patient was seen on 04/21/19. NOTE SUBJECTIVE: This is a 48-year-old female who was admitted with community-acquired pneumonia. She has made significant improvement. Her leukocytosis is resolved. She has decreased chest pain and cough. She is moving more easily. She does not have fever. OBJECTIVE PHYSICAL EXAMINATION: VITAL SIGNS: Please see below. GENERAL: Patient is fatigued but not ill-appearing HEENT: Neck is supple, no adenopathy or thyromegaly, good dentition, mild scleral injection CARDIOVASCULAR: Regular rate and rhythm with no appreciable murmur. RESPIRATORY: Patient has normal voice, she still has some coarse breath sounds, minimal wheezing to the right side ABDOMINAL: Soft, nontender, nondistended, positive bowel tones EXTREMITIES: No peripheral edema or lesions, pedal pulses are palpable NEUROLOGICAL: No focal neuromotor or sensory deficits PSYCHOLOGICAL: Patient is calm and cooperative and appropriate ASSESSMENT/PLAN: 1. Sepsis--patient has a sofa score of 1. However, she has other signs of sepsis with leukocytosis,hypotension, tachycardia and hypoxia. She is receiving IV fluids and empiric antibiotics. Blood and sputum culture results are negative to date. 2. Community-acquired pneumonia--the patient has right-sided infiltrates on chest x-ray. There is associated acute hypoxic respiratory failure. She is receiving supplemental oxygen, nebulization treatments, and empiric antibiotics in the form of vancomycin and doxycycline. Mucinex has helped mobilize her secretions. Disposition: Plans had been to discharge the patient to home on oral therapy. Patient was walked 140 feet by nursing staff and desatted to 83% on room air. She has been placed back on oxygen and we will monitor her for an additional day. VS,[place]uc[place], I+O VS, [place], I+O Laboratory Tests 04/21/19 04:38 Red Blood Count 3.23 L, Mean Corpuscular Volume 96.9 H, Mean Corpuscular Hemoglobin 30.7, Mean Corpuscular Hemoglobin Concent 31.6 L, Red Cell Dist ribution Width 13.6, Neutrophils (%) (Auto) 73.9 H, Lymphocytes (%) (Auto) 17.1 L, Monocytes (%) (Auto) 5.0, Eosinophils (%) (Auto) 0.2, Basophils (%) (Auto) 0.2, Neutrophils # (Auto) 9.0 H, Lymphocytes # (Auto) 2.1, Monocytes # (Auto) 0.6, Eosinophils # (Auto) 0.0, Basophils # (Auto) 0.0, Calcium Level 8.9 Vital Signs Date Time Temp Pulse Resp B/P (MAP) Pulse Ox O2 Delivery O2 Flow Rate FiO2 04/21/19 16:00 99.1 78 19 110/54 (72) 94 1.5 04/19/19 14:45 Nasal Cannula I&O- Last 24 Hours up to 6 AM 04/21/19 06:00 Intake Total 600 ml Output Total 1150 ml Balance -550 ml FOSTER HAQUE MD Apr 21, 2019 17:36
[2019-04-21] MEDS: diphenhydrAMINE 50 MG CAP PO SCH (20:23)
[2019-04-22] MEDS: IPRATROPIUM 0.5MG/ALBUTEROL 2.5MG INH SOL UD 3ML (DUONEB)(J7620) NEB SCH ×2 (02:11→07:40)
[2019-04-22 04:00] VITALS: BP 121/57
[2019-04-22] MEDS: DOXYCYCLINE HYCLATE 100 MG in D5W MINI-BAG PLUS 100 ML IV SCH (05:41)
[2019-04-22 05:58] LABS: HEMATOCRIT 34.1 % (36.0-47.0); HEMOGLOBIN 11.3 g/dl (12.0-15.5); MEAN CORPUSCULAR HGB CONC 33.1 g/dl (32.0-36.5); MEAN CORPUSCULAR VOLUME 96.6 fl (80.0-96.0); PLATELET COUNT, AUTOMATED 245 10^3/uL (150-450); RED BLOOD COUNT 3.53 10^6/uL (4.00-5.40); WHITE BLOOD COUNT 8.7 10^3/uL (4.0-10.0)
[2019-04-22 06:24] LABS: BLOOD UREA NITROGEN 13 MG/DL (7-18); CALCIUM LEVEL 8.6 MG/DL (8.5-10.1); CARBON DIOXIDE LEVEL 26 MEQ/L (21-32); CHLORIDE LEVEL 108 MEQ/L (98-107); CREATININE FOR GFR 0.75 MG/DL (0.55-1.30); GLOMERULAR FILTRATION RATE > 60.0 (>51); GLUCOSE, FASTING 82 MG/DL (70-100); POTASSIUM SERUM 3.6 MEQ/L (3.5-5.1); SODIUM LEVEL 142 MEQ/L (136-145)
[2019-04-22 06:27] LABS: LYMPHOCYTES 31 % (16-52); METAMYELOCYTES 1 % (0-0); MONOCYTES 4 % (0-8); MYELOCYTES 2 % (0-0); NEUTROPHILS 61 % (35-75); PLATELET ESTIMATE NORMAL (NORMAL); POLYCHROMASIA 1+
[2019-04-22 08:00] VITALS: BP 128/55
[2019-04-22] MEDS ORDERED: PROAAER10 INH (08:34)
[2019-04-22] MEDS: ENOXAPARIN 40 MG/0.4 ML SYRINGE (J1650) SC SCH (08:39)
[2019-04-22] MEDS: VENLAFAXINE **XR** 75MG CAPSULE PO SCH (08:39)
[2019-04-22] MEDS: methylPREDNISolone INJ 40 MG/1 ML VIAL (J2920) IV SCH (08:39)
[2019-04-22] MEDS: guaiFENesin ER 600 MG TAB PO SCH (08:39)
--- NOTE | 2019-04-22 18:24 | DS.PDOC ---
Discharge Summary General Date of Admission Apr 19, 2019 at 16:52 Date of Discharge 04/22/2019 Primary Care Physician: Ananth Sheets Discharge Summary PROCEDURES PERFORMED DURING STAY: None. ADMITTING DIAGNOSES: 1. Acute hypoxic respiratory failure, community-acquired pneumonia. DISCHARGE DIAGNOSES: 1. Resolving community-acquired pneumonia, acute hypoxic respiratory failure resolved, chronic anxiety disorder, osteoarthritis, chronic pain syndrome, tobacco dependency. COMPLICATIONS/CHIEF COMPLAINT: CAP. HISTORY OF PRESENT ILLNESS/HOSPITAL COURSE: This is a 48-year-old female who prior to admission had not been feeling well for about a week. She had right- sided flank pain, cough, weakness and fatigue. On evaluation in the emergency room she was noted to have hypotension and hypoxemia. O2 sats were down to 83% on room air. She was also noted to be tachycardic.She also had leukocytosis. Chest x-ray showed infiltrates in the right middle lobe, right lower lobe and the left lower lobe. Patient was ruled out for PE by CT angiogram. Patient was admitted with acute respiratory failure due to community-acquired pneumonia. The patient was admitted to the medical floor. She was placed on empiric antibiotics in the form of ceftriaxone and doxycycline.. She also requires supplemental oxygen. She also received nebulization treatments. Sputum culture was positive for Klebsiella oxytoca, Streptococcus group C and and yeast. The patient was gradually weaned down to room air and tolerant of household distance activity without desaturations. She was stable to transition to oral therapy and be discharged to home.. DISCHARGE MEDICATIONS: Please see below. ALLERGIES: Please see below. PHYSICAL EXAMINATION ON DISCHARGE: VITAL SIGNS: Please see below. LABORATORY DATA: Please see below. IMAGING: Impression: Extensive infiltrate right lung most consistent with pneumonia. Interstitial markings are prominent on the left as well. Electronically Signed by Duong Dumont MD 04/19/2019 02:39 P PROGNOSIS: ACTIVITY: As tolerated. DIET: Regular as tolerated DISCHARGE PLAN: The patient is stable for discharge to home. She will continue on oral antibiotics in the form of Ceftin and fluconazole per sensitivities. She is not to overexert herself over the next week. She will follow-up with her primary care provider Va Sheets in one week. DISPOSITION: 01 Home, Self-Care. DISCHARGE CONDITION: Stable. TIME SPENT ON DISCHARGE: Greater than 40 minutes. Vital Signs/I&Os Vital Signs Date Time Temp Pulse Resp B/P (MAP) Pulse Ox O2 Delivery O2 Flow Rate FiO2 04/22/19 08:25 97 04/22/19 08:00 98.6 76 17 128/55 (79) 0.5 04/19/19 14:45 Nasal Cannula I&O- Last 24 Hours up to 6 AM 04/22/19 06:00 Intake Total 1060 ml Output Total 1450 ml Balance -390 ml Laboratory Data Labs 24H Laboratory Tests 2 04/22/19 05:43: Nucleated Red Blood Cells % (auto) 0.0, Neutrophils 61, Band Neutrophils 1, Lymphocytes (Manual) 31, Monocytes (Manual) 4, Metamyelocytes 1H, Myelocytes 2H, Platelet Estimate NORMAL, Polychromasia 1+, Anion Gap 8, Glomerular Filtration Rate > 60.0, Blood Urea Nitrogen 13, Creatinine 0.75, Sodium Level 142, Potassium Level 3.6, Chloride Level 108H, Carbon Dioxide Level 26, Calcium Level 8.6 CBC/BMP Laboratory Tests 04/22/19 05:43 Red Blood Count 3.53 L, Mean Corpuscular Volume 96.6 H, Mean Corpuscular Hemoglo bin 32.0, Mean Corpuscular Hemoglobin Concent 33.1, Red Cell Distribution Width 13.6, Calcium Level 8.6 Microbiology Microbiology 04/19/19 Blood Culture - Preliminary, Resulted No Growth after 72 hours. All specime... 04/19/19 Blood Culture - Preliminary, Resulted No Growth after 72 hours. All specime... 04/19/19 Respiratory Virus Panel (PCR) (ELEANOR) - Final, Complete 04/19/19 Gram Stain - Final, Complete 04/19/19 Sputum Culture - Final, Complete Klebsiella Oxytoca Streptococcus Group C Yeast Like Organism Discharge Medications Scheduled Cefuroxime Axetil (Cefuroxime) 500 Mg Tablet, 500 MG PO BID Diphenhydramine HCl (Benadryl) 25 Mg Capsule, 50 MG PO QHS, (Reported) Dm/Acetaminophen/Doxylamine (Night Cold-Flu Relief Liq Cap) 1 Each Capsule, 2 CAP PO QHS, (Reported) Fluconazole (Diflucan) 100 Mg Tablet, 100 MG PO DAILY Guaifenesin (Mucinex) 600 Mg Tab.er.12h, 600 MG PO BID Venlafaxine HCl (Venlafaxine HCl ER) 75 Mg Cap.er.24h, 75 MG PO BID, (Reported) Scheduled PRN Albuterol Sulfate (Proair Hfa) 8.5 Gm Hfa.aer.ad, 2 PUFF INH Q4-6HP PRN for wheezing Clonazepam (Clonazepam) 1 Mg Tab, 1 MG PO TID PRN for ANXIETY/AGITATION, (Report ed) Meloxicam (Mobic) 7.5 Mg Tablet, 7.5 MG PO BID PRN for PAIN, (Reported) WITH FOOD Prochlorperazine Maleate (Prochlorperazine Maleate) 10 Mg Tablet, 10 MG PO TID PRN for NAUSEA, (Reported) Allergies Coded Allergies: Quinolones (Verified Allergy, Unknown, 04/19/19) rash erythromycin base (Verified Allergy, Unknown, 04/19/19) rash haloperidol (Verified Allergy, Unknown, 04/19/19) swelling atorvastatin (Verified Adverse Reaction, Unknown, 04/19/19) muscle cramping fentanyl (Verified Adverse Reaction, Unknown, 04/19/19) sob sumatriptan (Verified Adverse Reaction, Unknown, 04/19/19) chest pain FOSTER HAQUE MD Apr 22, 2019 18:24
== END 2019-04-22 10:15 | disposition home or self-care (01) | DRG 139 ==
LOC: M ED 11:33 → M ED INP 16:52 → M PCU 18:18
PROVIDERS: ADMIT Student in an Organized Health Care Education/Training Program; ATTEND Internal Medicine
DX: J18.9 Pneumonia, unspecified organism (principal); J96.01 Acute respiratory failure with hypoxia; I95.9 Hypotension, unspecified; F41.9 Anxiety disorder, unspecified; G89.29 Other chronic pain; F17.210 Nicotine dependence, cigarettes, uncomplicated; M19.90 Unspecified osteoarthritis, unspecified site; Z79.899 Other long term (current) drug therapy; Z88.1 Allergy status to other antibiotic agents; Z88.8 Allergy status to other drugs, medicaments and biological substances

== ENCOUNTER → 2019-05-15 | Outpatient (CLI) | payer OTHER ==
[~2019-05-15] MED LIST changes: +CEFU50TA PO; +FLUC10TA PO; +MOBI4TAB PO; +MUCI600T31 PO; +NIGH1CAP PO; +PROAAER10 INH; +PROC10TA4 PO; +VENL75CA47 PO
[2019-05-15 17:25] LABS: RHEUMATOID FACTOR QUANT < 10.0 IU/ML (<15.0); THYROID STIMULATING HORMONE 0.611 uIU/ML (0.358-3.740); URIC ACID 3.7 MG/DL (2.6-6.0)
[2019-05-15 17:35] LABS: HEMATOCRIT 37.7 % (36.0-47.0); HEMOGLOBIN 12.1 g/dl (12.0-15.5); MEAN CORPUSCULAR HEMOGLOBIN 30.8 pg (27.0-33.0); MEAN CORPUSCULAR HGB CONC 32.1 g/dl (32.0-36.5); MEAN CORPUSCULAR VOLUME 95.9 fl (80.0-96.0); PLATELET COUNT, AUTOMATED 207 10^3/uL (150-450); RED BLOOD COUNT 3.93 10^6/uL (4.00-5.40); WHITE BLOOD COUNT 4.6 10^3/uL (4.0-10.0)
[2019-05-15 18:11] LABS: ERYTHROCYTE SEDIMENTATION RATE 37 mm/hr (0-30)
--- NOTE | 2019-05-15 19:17 | REP ---
Bilateral knee series: 10 views. History: Gout. Findings: Five views of each knee are presented. On the left there is some nonarticular spurring at the superior pole of the patella and minimal medial compartment spurring is seen. There is a small subcortical cyst beneath the tibial spines in the proximal tibia and a normal fabella is seen. No evidence of joint effusion. On the right a normal fabella is seen. There is nonarticular spurring on the superior pole of the right patella. There is a rounded calcification at the posterior joint line which could conceivably be a loose body. This is only seen on lateral radiograph. Minimal medial compartment spurring is seen. Impression: Medial compartment osteoarthritic spurring bilaterally. Quadriceps tendon insertion site spurring bilaterally. Question osteocartilaginous loose body posteriorly on the right. Electronically Signed by Duong Dumont MD 05/16/2019 07:17 P
[2019-05-18 00:06] LABS: ANTINUCLEAR ANTIBODIES DIRECT Negative (Negative); Lyme Disease IgG/IgM Antibodie <0.91 ISR (0.00-0.90); Lyme Disease IgM Ab Quantitati <0.80 index (0.00-0.79)
== END ==
LOC: M WUC 14:44
PROVIDERS: ATTEND Family Medicine
DX: M17.0 Bilateral primary osteoarthritis of knee (principal); M25.761 Osteophyte, right knee; M25.762 Osteophyte, left knee; D64.9 Anemia, unspecified; M10.9 Gout, unspecified

== ENCOUNTER 2019-06-09 10:04 | Emergency (ER) | payer OTHER ==
[~2019-06-09] VITALS: Ht 175.3 cm; Wt 72.7 kg
[2019-06-09 10:04] VITALS: BP 118/53
[2019-06-09] MEDS ORDERED: KETOROLAC 30 MG/ML VIAL (J1885) IV ONE (10:45)
[2019-06-09] MEDS ORDERED: ACET1TAB16 (10:48)
[2019-06-09 11:01] LABS: ALBUMIN 3.8 GM/DL (3.2-5.2); ALT/SGPT 17 U/L (12-78); BILIRUBIN,DIRECT < 0.1 MG/DL (0.0-0.2); BILIRUBIN,TOTAL 0.2 MG/DL (0.2-1.0); BLOOD UREA NITROGEN 7 MG/DL (7-18); CALCIUM LEVEL 8.7 MG/DL (8.5-10.1); CARBON DIOXIDE LEVEL 29 MEQ/L (21-32); CHLORIDE LEVEL 105 MEQ/L (98-107); CREATININE FOR GFR 0.84 MG/DL (0.55-1.30); GLOMERULAR FILTRATION RATE > 60.0 (>51); GLUCOSE, FASTING 83 MG/DL (70-100); LIPASE 134 U/L (73-393); POTASSIUM SERUM 4.4 MEQ/L (3.5-5.1); SODIUM LEVEL 138 MEQ/L (136-145); TOTAL PROTEIN 7.8 GM/DL (6.4-8.2)
[2019-06-09 11:05] LABS: BASO % 0.7 % (0.0-1.0); EOS # 0.1 10^3/uL (0.0-0.50); EOS % 0.9 % (0.0-3.0); HEMATOCRIT 40.3 % (36.0-47.0); HEMOGLOBIN 13.4 g/dl (12.0-15.5); LYMPH # 1.8 10^3/uL (1.5-4.5); LYMPH % 33.8 % (24.0-44.0); MEAN CORPUSCULAR HEMOGLOBIN 31.5 pg (27.0-33.0); MEAN CORPUSCULAR HGB CONC 33.3 g/dl (32.0-36.5); MEAN CORPUSCULAR VOLUME 94.8 fl (80.0-96.0); MONO # 0.4 10^3/uL (0.0-0.8); NEUTROPHILS % 56.2 % (36.0-66.0); PLATELET COUNT, AUTOMATED 260 10^3/uL (150-450); RED BLOOD COUNT 4.25 10^6/uL (4.00-5.40); WHITE BLOOD COUNT 5.4 10^3/uL (4.0-10.0)
[2019-06-09] MEDS ORDERED: NS 500 ML IV ONE (11:45)
[2019-06-09] MEDS ORDERED: ONDANSETRON 4MG/2ML VIAL (J2405) IV ONE (12:15)
[2019-06-09] MEDS ORDERED: MORPHINE 2 MG/ML 1ML SYRINGE (J2270) IV ONE (12:15)
--- NOTE | 2019-06-09 14:24 | REP ---
HISTORY: Right upper quadrant pain. Patient has known cholelithiasis. The prior exam of 11/13/2018 was reviewed. Multiple ultrasonographic images of the liver shows no change in the hepatic parenchyma echo pattern. The common bile duct is again dilated at 7 mm. Multiple ultrasonographic images of the gallbladder show one echogenic focus adherent to the gallbladder wall, however, I do not see definitive acoustic shadowing or comet tail artifact. There is no diffuse gallbladder wall thickening. There is no pericholecystic edema. The imaged portion of the right kidney and pancreas are unchanged. IMPRESSION: No change from the prior exam. Single echogenic focus adherent to the gallbladder wall, however, the multiple wall adherent echogenic foci seen on the prior exam are not present today. This does not rule out adenomyomatosis of the gallbladder. No definite shadowing calculi are present. There is evidence of diffuse fatty infiltration of the liver, status quo. There is dilatation of the common bile duct, status quo. Electronically Signed by Fidel Ruggiero DO 06/09/2019 02:25 P
[2019-06-09 14:51] LABS: CK-MB VALUE MASS < 1.0 NG/ML (<3.6); CPK CREATINE PHOSPHOKINASE 98 U/L (26-192); MB/CK RELATIVE INDEX 1.02 (< OR =4); TROPONIN I < 0.02 NG/ML (< 0.10)
--- NOTE | 2019-06-15 20:34 | ED PDOC ---
Post-Departure Follow-Up dr heredia faxed formal report of us for fu Anny Burnett MD Jun 15, 2019 20:34
== END 2019-06-09 14:30 | disposition left against medical advice (07) ==
LOC: M ED 10:04
DX: K80.20 Calculus of gallbladder without cholecystitis without obstruction (principal); E78.5 Hyperlipidemia, unspecified; J44.9 Chronic obstructive pulmonary disease, unspecified; F41.9 Anxiety disorder, unspecified; F32.9 Major depressive disorder, single episode, unspecified; Z72.0 Tobacco use; Z79.899 Other long term (current) drug therapy; Z88.8 Allergy status to other drugs, medicaments and biological substances; Z88.1 Allergy status to other antibiotic agents; Z53.21 Procedure and treatment not carried out due to patient leaving prior to being seen by health care provider
CPT/HCPCS: 76705; 80048; 80076; 81001; 82550; 82553; 83690; 85025; 96361; 96374; 96375; 99283; J1885; J2270; J2405

== ENCOUNTER → 2019-07-25 | Outpatient (CLI) | payer OTHER ==
[~2019-07-25] MED LIST changes: +ACET1TAB16; +CIPR500T3; +DICY20TA11; +GOLYLQ PO; +SENO8.6T10 PO
--- NOTE | 2019-07-25 19:46 | REP ---
PA and lateral chest: Comparison is 06/17/2018. The lung cervantes are clear. The cardiac size is normal. The hilton, mediastinum, and skeletal structures are unremarkable. Impression: Negative PA and lateral chest. There is no interval change. Electronically Signed by Oscar Barbosa MD 07/25/2019 07:37 P
== END ==
LOC: M WUC 15:34
PROVIDERS: ATTEND Nurse Practitioner Family
DX: J20.9 Acute bronchitis, unspecified (principal)

== ENCOUNTER 2019-08-31 16:03 | Emergency (ER) | payer OTHER ==
[~2019-08-31] VITALS: Ht 175.3 cm; Wt 70.9 kg
[~2019-08-31 16:03] MED LIST changes: -CIPR500T3; -DICY20TA11; -GOLYLQ PO; -SENO8.6T10 PO
[2019-08-31 16:50] LABS: BASO % 0.6 % (0.0-1.0); EOS # 0.1 10^3/uL (0.0-0.5); EOS % 0.8 % (0.0-3.0); HEMOGLOBIN 13.2 g/dl (12.0-15.5); LYMPH # 2.5 10^3/uL (1.5-5.0); LYMPH % 38.9 % (24.0-44.0); MEAN CORPUSCULAR HEMOGLOBIN 31.1 pg (27.0-33.0); MEAN CORPUSCULAR VOLUME 94.3 fl (80.0-96.0); MONO # 0.4 10^3/uL (0.0-0.8); MONO % 5.8 % (0.0-5.0); NEUTROPHILS # 3.5 10^3/uL (1.5-8.5); NEUTROPHILS % 53.6 % (36.0-66.0); PLATELET COUNT, AUTOMATED 224 10^3/uL (150-450); RED BLOOD COUNT 4.24 10^6/uL (4.00-5.40); WHITE BLOOD COUNT 6.5 10^3/uL (4.0-10.0)
[2019-08-31 17:10] LABS: ALBUMIN 3.9 GM/DL (3.2-5.2); ALT/SGPT 16 U/L (12-78); BILIRUBIN,DIRECT < 0.1 MG/DL (0.0-0.2); BILIRUBIN,TOTAL 0.3 MG/DL (0.2-1.0); CK-MB VALUE MASS 1.5 NG/ML (<3.6); CPK CREATINE PHOSPHOKINASE 102 U/L (26-192); LIPASE 95 U/L (73-393); MB/CK RELATIVE INDEX 1.47 (< OR =4); TOTAL PROTEIN 7.3 GM/DL (6.4-8.2); TROPONIN I < 0.02 NG/ML (< 0.10)
--- NOTE | 2019-08-31 17:16 | REP ---
Clinical: Acute chest pain . Comparison: 07/25/2019 . Findings: The mediastinum and cardiac silhouette are stable and within normal limits for portable technique. The lung cervantes are clear without acute consolidation, effusion, or pneumothorax. Skeletal structures are intact. Impression: No acute cardiopulmonary process appreciated. Electronically Signed by Kendrick Null MD 08/31/2019 05:07 P
[2019-08-31 17:37] LABS: INR 0.97; PROTHROMBIN TIME 12.6 SECONDS (11.8-14.0)
[2019-08-31] MEDS ORDERED: HYDROMORPHONE HCL 0.5 MG/ 0.5 ML SYRINGE (J1170 PER 1) IV PRN (18:30)
[2019-08-31] MEDS ORDERED: ISOVUE-370 76% 100ML VIAL (Q9967) As Ordered ONE (18:31)
--- NOTE | 2019-08-31 19:56 | REPVR ---
PROCEDURE INFORMATION: Exam: CT Angiography Chest With Contrast Exam date and time: 08/31/2019 7:03 PM Clinical history: 48 years old, female; Chest pain; Additional info: Right chest pain TECHNIQUE: Imaging protocol: Computed tomographic angiography of the chest with intravenous contrast. 3D rendering: MIP reconstructed images were created and reviewed. Radiation optimization: All CT scans at this facility use at least one of these dose optimization techniques: automated exposure control; mA and/or kV adjustment per patient size (includes targeted exams where dose is matched to clinical indication); or iterative reconstruction. Contrast material: ISOVUE 370; Contrast volume: 100 ml; Contrast route: IV; COMPARISON: CT ANGIO CHEST 04/19/2019 3:32 PM FINDINGS: Pulmonary arteries: There are no pulmonary emboli. Aorta: There is no aortic dissection or aneurysm. Lungs: 4 mm noncalcified nodule right upper lobe likely postinflammatory. No follow up suggested. Remaining lungs are clear. Small cystic foci at the lung bases. Pleural space: Unremarkable. No pneumothorax. No pleural effusion. Heart: Unremarkable. No cardiomegaly. No pericardial effusion. Lymph nodes: Unremarkable. No enlarged lymph nodes. Bones/joints: The spine demonstrates mild degenerative changes. Soft tissues: Unremarkable. IMPRESSION: 1. There is no aortic dissection or aneurysm. 2. There are no pulmonary emboli. 3. No acute pulmonary parenchymal abnormalities. Electronically signed by: Juan Peters On 08/31/2019 19:55:28 PM
--- NOTE | 2019-08-31 20:00 | REPVR ---
PROCEDURE INFORMATION: Exam: CT Abdomen And Pelvis With Contrast Exam date and time: 08/31/2019 7:03 PM Clinical history: 48 years old, female; Abdominal pain; Localized; Right upper quadrant (ruq); Additional info: Ruq pain TECHNIQUE: Imaging protocol: Computed tomography of the abdomen and pelvis with intravenous contrast. Radiation optimization: All CT scans at this facility use at least one of these dose optimization techniques: automated exposure control; mA and/or kV adjustment per patient size (includes targeted exams where dose is matched to clinical indication); or iterative reconstruction. Contrast material: ISOVUE 370; Contrast volume: 100 ml; Contrast route: IV; COMPARISON: CT ABD PELVIS WITH CONTRAST 10/06/2014 12:29 PM FINDINGS: Liver: Normal. No mass. Gallbladder and bile ducts: Normal. No calcified stones. No ductal dilation. Pancreas: Normal. No ductal dilation. Spleen: Heterogeneous splenic enhancement related to early arterial phase imaging. Adrenals: Normal. No mass. Kidneys and ureters: Normal. No hydronephrosis. Stomach and bowel: There is increased feces throughout the colon consistent with constipation. Appendix: No evidence of appendicitis. Intraperitoneal space: Unremarkable. No free air. No significant fluid collection. Vasculature: The aorta demonstrates mild atherosclerotic calcification. Streak artifact in the portal vein related to early phase of imaging. Lymph nodes: Unremarkable. No enlarged lymph nodes. Bladder: Unremarkable as visualized. Reproductive: Unremarkable as visualized. Bones/joints: Moderate central spinal stenosis L4-5. Mild retrolisthesis of L5 on S1. Soft tissues: Unremarkable. IMPRESSION: 1. There is increased feces throughout the colon consistent with constipation. 2. Otherwise unremarkable. Electronically signed by: Juan Peters On 08/31/2019 19:59:41 PM
[2019-08-31] MEDS ORDERED: MAGNESIUM CITRATE 300 ML BTL PO ONE (21:15)
[2019-08-31 21:36] VITALS: BP 120/58
--- NOTE | 2019-09-01 11:55 | ECGEPIP ---
[facility] - ED Test Date: 2019-08-31 Pat Name: FRIEDA LOBATO Department: Room: - Gender: Female [employer] As[employer]er [employer] P[employer]: : 1970 Requested By: DENISE Cornejo PA-C Order Number: [id number] Reading MD: Tri Do Measurements Intervals [place] Rate: 72 P: 62 WV: 217 QRS: 72 QRSD: 97 T: 63 QT: 407 QTc: 447 Interpretive Statements SINUS RHYTHM WITH FIRST DEGREE AV BLOCK NSTTW abnormalities DECREASED RATE 04/19/19 Electronically Signed on 09-01-2019 11:55:12 EST by Tri Do
== END 2019-08-31 21:38 | disposition home or self-care (01) ==
LOC: M ED 16:03
DX: K59.00 Constipation, unspecified (principal); F17.200 Nicotine dependence, unspecified, uncomplicated; Z88.8 Allergy status to other drugs, medicaments and biological substances; Z88.1 Allergy status to other antibiotic agents; Z88.5 Allergy status to narcotic agent; Z79.899 Other long term (current) drug therapy
CPT/HCPCS: 71045; 71275; 74177; 80047; 80076; 81001; 82550; 82553; 83690; 85025; 85610; 93005; 93041; 94760; 96374; 99284; J1170; Q9967

== ENCOUNTER 2019-10-03 07:55 | Emergency (ER) | payer OTHER ==
[~2019-10-03] VITALS: Ht 175.3 cm; Wt 72.4 kg
[2019-10-03] MEDS ORDERED: DICY20TA11 (08:05)
[2019-10-03] MEDS ORDERED: CIPR500T3 (08:05)
[2019-10-03] MEDS ORDERED: MORPHINE 2 MG/ML 1ML VIAL (J2270) IV PRN (08:30)
[2019-10-03] MEDS ORDERED: NS 1,000 ML IV ONE (08:30)
[2019-10-03 09:16] LABS: BASO % 0.5 % (0.0-1.0); EOS # 0.1 10^3/uL (0.0-0.5); EOS % 0.9 % (0.0-3.0); HEMATOCRIT 41.1 % (36.0-47.0); HEMOGLOBIN 13.2 g/dl (12.0-15.5); LYMPH # 1.8 10^3/uL (1.5-5.0); MEAN CORPUSCULAR HEMOGLOBIN 31.4 pg (27.0-33.0); MEAN CORPUSCULAR HGB CONC 32.1 g/dl (32.0-36.5); MEAN CORPUSCULAR VOLUME 97.6 fl (80.0-96.0); MONO # 0.5 10^3/uL (0.0-0.8); MONO % 6.1 % (0.0-5.0); NEUTROPHILS # 5.5 10^3/uL (1.5-8.5); NEUTROPHILS % 69.1 % (36.0-66.0); PLATELET COUNT, AUTOMATED 250 10^3/uL (150-450); RED BLOOD COUNT 4.21 10^6/uL (4.00-5.40); WHITE BLOOD COUNT 7.9 10^3/uL (4.0-10.0)
[2019-10-03 09:44] LABS: AMPHETAMINES LEVEL URINE NEGATIVE (NEGATIVE); BARBITURATES URINE POSITIVE (NEGATIVE); BENZODIAZEPINES URINE NEGATIVE (NEGATIVE); CANNABINOIDS URINE NEGATIVE (NEGATIVE); COCAINE METABOLITE URINE NEGATIVE (NEGATIVE); METHADONE URINE NEGATIVE (NEGATIVE); OPIATES URINE POSITIVE (NEGATIVE); PHENCYCLIDINE URINE NEGATIVE (NEGATIVE)
[2019-10-03 09:45] LABS: HCG, SERUM QUALITATIVE NEGATIVE (NEGATIVE)
[2019-10-03 09:48] LABS: ALBUMIN 3.8 GM/DL (3.2-5.2); ALT/SGPT 20 U/L (12-78); AMYLASE 55 U/L (25-115); BILIRUBIN,DIRECT < 0.1 MG/DL (0.0-0.2); BILIRUBIN,TOTAL 0.2 MG/DL (0.2-1.0); BLOOD UREA NITROGEN 10 MG/DL (7-18); CALCIUM LEVEL 8.4 MG/DL (8.5-10.1); CARBON DIOXIDE LEVEL 29 MEQ/L (21-32); CHLORIDE LEVEL 107 MEQ/L (98-107); CK-MB VALUE MASS < 1.0 NG/ML (<3.6); CPK CREATINE PHOSPHOKINASE 73 U/L (26-192); CREATININE FOR GFR 0.72 MG/DL (0.55-1.30); GLOMERULAR FILTRATION RATE > 60.0 (>51); GLUCOSE, FASTING 80 MG/DL (70-100); LIPASE 106 U/L (73-393); MB/CK RELATIVE INDEX 1.37 (< OR =4); POTASSIUM SERUM 4.4 MEQ/L (3.5-5.1); SODIUM LEVEL 138 MEQ/L (136-145); TOTAL PROTEIN 7.5 GM/DL (6.4-8.2); TROPONIN I < 0.02 NG/ML (< 0.10)
[2019-10-03] MEDS ORDERED: ISOVUE-370 76% 100ML VIAL (Q9967) As Ordered ONE (09:53)
--- NOTE | 2019-10-03 10:26 | REP ---
Clinical: Lower abdominal pain. Technique: Axial contrast enhanced images from the lung bases to the pubic symphysis using 100 ml Isovue 370 intravenous contrast material with coronal and sagittal re-formations. Comparison: 08/31/2019. Findings: Lung bases are clear. Visualized heart and pericardium normal. Liver, spleen, pancreas, gallbladder, bilateral adrenal glands and kidneys are normal. The enteric system is without obstruction or acute inflammatory process although moderate fecal stasis is suggested and should be correlated with physical examination. Normal terminal ileum and appendix identified in the right lower quadrant. Pelvis demonstrates normal bladder and age-appropriate uterus/adnexa. No ascites. No free air. No adenopathy. Abdominal aorta without aneurysm or dissection. Musculoskeletal structures demonstrate age-related changes. Impression: Moderate fecal stasis. Otherwise normal CT of the abdomen and pelvis. Electronically Signed by Kendrick Null MD 10/03/2019 10:18 A
[2019-10-03] MEDS ORDERED: KETOROLAC 30 MG/ML VIAL (J1885) IV ONE (10:45)
[2019-10-03 10:46] VITALS: BP 104/54
[2019-10-03] MEDS ORDERED: SENO8.6T10 PO (11:19)
[2019-10-03] MEDS ORDERED: GOLYLQ PO (11:19)
--- NOTE | 2019-10-03 18:04 | ECGEPIP ---
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
== END 2019-10-03 11:29 | disposition home or self-care (01) ==
LOC: M ED 07:55
DX: K59.00 Constipation, unspecified (principal); Z79.899 Other long term (current) drug therapy; Z88.1 Allergy status to other antibiotic agents; Z88.8 Allergy status to other drugs, medicaments and biological substances; F17.210 Nicotine dependence, cigarettes, uncomplicated
CPT/HCPCS: 74177; 80048; 80076; 80307; 81001; 82150; 82550; 82553; 83605; 83690; 84703; 85025; 93005; 93041; 96361; 96374; 96375; 99284; J1885; J2270; Q9967

== ENCOUNTER 2019-10-29 19:53 | Emergency (ER) | payer OTHER ==
[~2019-10-29] VITALS: Ht 175.3 cm; Wt 69.5 kg
[~2019-10-29 19:53] MED LIST changes: +CIPR500T3; +DICY20TA11; +GOLYLQ PO; +SENO8.6T10 PO
[2019-10-29] MEDS ORDERED: NS 1,000 ML IV ONE (20:45)
[2019-10-29 20:47] LABS: BASO # 0.1 10^3/uL (0.0-0.2); BASO % 0.6 % (0.0-1.0); EOS % 0.4 % (0.0-3.0); HEMATOCRIT 41.9 % (36.0-47.0); HEMOGLOBIN 13.8 g/dl (12.0-15.5); LYMPH # 1.9 10^3/uL (1.5-5.0); LYMPH % 23.7 % (24.0-44.0); MEAN CORPUSCULAR HEMOGLOBIN 32.2 pg (27.0-33.0); MEAN CORPUSCULAR HGB CONC 32.9 g/dl (32.0-36.5); MEAN CORPUSCULAR VOLUME 97.9 fl (80.0-96.0); MONO # 0.5 10^3/uL (0.0-0.8); MONO % 6.5 % (0.0-5.0); NEUTROPHILS # 5.4 10^3/uL (1.5-8.5); NEUTROPHILS % 68.5 % (36.0-66.0); PLATELET COUNT, AUTOMATED 284 10^3/uL (150-450); RED BLOOD COUNT 4.28 10^6/uL (4.00-5.40); WHITE BLOOD COUNT 7.8 10^3/uL (4.0-10.0)
[2019-10-29 20:58] LABS: ALT/SGPT 10 U/L (12-78); BILIRUBIN,DIRECT < 0.1 MG/DL (0.0-0.2); BILIRUBIN,TOTAL 0.2 MG/DL (0.2-1.0); BLOOD UREA NITROGEN 6 MG/DL (7-18); CALCIUM LEVEL 8.9 MG/DL (8.5-10.1); CARBON DIOXIDE LEVEL 21 MEQ/L (21-32); CHLORIDE LEVEL 106 MEQ/L (98-107); CK-MB VALUE MASS 2.2 NG/ML (<3.6); CPK CREATINE PHOSPHOKINASE 123 U/L (26-192); CREATININE FOR GFR 0.87 MG/DL (0.55-1.30); GLOMERULAR FILTRATION RATE > 60.0 (>51); GLUCOSE, FASTING 116 MG/DL (70-100); MB/CK RELATIVE INDEX 1.79 (< OR =4); POTASSIUM SERUM 3.6 MEQ/L (3.5-5.1); SODIUM LEVEL 138 MEQ/L (136-145); TOTAL PROTEIN 7.6 GM/DL (6.4-8.2)
[2019-10-29 20:59] LABS: ACETAMINOPHEN LEVEL 2.8 UG/ML (10.0-30.0); ALBUMIN 3.7 GM/DL (3.2-5.2); ETHYL ALCOHOL (ETHANOL) < 0.003 % (0.000-0.010); SALICYLATE LEVEL 5.6 MG/DL (5.0-30.0); TROPONIN I < 0.02 NG/ML (< 0.10)
[2019-10-29 21:00] VITALS: BP 117/58
[2019-10-29] MEDS ORDERED: METAL LOCK LOOP XX ONE (21:17)
[2019-10-29 21:58] LABS: AMPHETAMINES LEVEL URINE NEGATIVE (NEGATIVE); BARBITURATES URINE POSITIVE (NEGATIVE); BENZODIAZEPINES URINE NEGATIVE (NEGATIVE); CANNABINOIDS URINE NEGATIVE (NEGATIVE); COCAINE METABOLITE URINE NEGATIVE (NEGATIVE); METHADONE URINE NEGATIVE (NEGATIVE); OPIATES URINE NEGATIVE (NEGATIVE); PHENCYCLIDINE URINE NEGATIVE (NEGATIVE)
--- NOTE | 2019-10-29 23:06 | REPVR ---
PROCEDURE INFORMATION: Exam: CT Head Without Contrast Exam date and time: 10/29/2019 8:42 PM Age: 48 years old Clinical indication: Pain; Headache; Additional info: Altered mental status TECHNIQUE: Imaging protocol: Computed tomography of the head without contrast. Radiation optimization: All CT scans at this facility use at least one of these dose optimization techniques: automated exposure control; mA and/or kV adjustment per patient size (includes targeted exams where dose is matched to clinical indication); or iterative reconstruction. COMPARISON: MRI-Brain without Contrast 10/28/2013 6:14 PM FINDINGS: Brain: Normal. No hemorrhage. Unremarkable white matter. No mass effect. Ventricles: Normal. No ventriculomegaly. Bones/joints: Unremarkable. No acute fracture. Sinuses: Visualized sinuses are unremarkable. No fluid levels. Mastoid air cells: Visualized mastoid air cells are well aerated. Soft tissues: Unremarkable. IMPRESSION: No acute intracranial abnormality. Electronically signed by: Juan Peters On 10/29/2019 23:06:04 PM
[2019-10-29] MEDS ORDERED: CLON1TAB8 PO (23:19)
[2019-10-29] MEDS ORDERED: clonazePAM 1 MG TAB PO ONE (23:30)
--- NOTE | 2019-10-30 07:55 | ECGEPIP ---
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
--- NOTE | 2019-10-30 08:21 | REP ---
Clinical: Altered mental status . Comparison: 08/31/2019 . Findings: The mediastinum and cardiac silhouette are stable and within normal limits for portable technique. The lung cervantes are clear without acute consolidation, effusion, or pneumothorax. Skeletal structures are intact. Impression: No acute cardiopulmonary process appreciated. Electronically Signed by Kendrick Null MD 10/30/2019 08:13 A
== END 2019-10-29 23:41 | disposition home or self-care (01) ==
LOC: M ED 19:53
DX: F44.5 Conversion disorder with seizures or convulsions (principal); I44.0 Atrioventricular block, first degree; F41.1 Generalized anxiety disorder; F17.290 Nicotine dependence, other tobacco product, uncomplicated; Z79.899 Other long term (current) drug therapy; Z88.8 Allergy status to other drugs, medicaments and biological substances; Z88.1 Allergy status to other antibiotic agents; Z88.4 Allergy status to anesthetic agent
CPT/HCPCS: 70450; 71045; 80048; 80076; 80307; 82550; 82553; 83605; 84443; 85025; 93005; 93041; 94760; 96360; 96361; 99285; G0480

== ENCOUNTER → 2020-04-09 | Outpatient (CLI) | payer OTHER ==
[~2020-04-09] MED LIST changes: +CYCL-707 PO; -CYCL10TA PO
--- NOTE | 2020-04-09 11:38 | REP ---
CHEST, TWO VIEWS: Two views of the chest are performed and compared to prior studies, most recently 10/29/2019. Mild accentuated interstitial markings inferiorly bilaterally are stable with no evidence of acute infiltrate. The heart is normal in size. The mediastinal silhouette is unchanged. Visualized osseous structures appear intact. IMPRESSION: No evidence of acute pulmonary disease with no change since the prior studies. Electronically Signed by Oscar Navarrete MD 04/14/2020 06:00 P
[2020-04-09 12:14] LABS: BASO % 0.3 % (0.0-1.0); EOS % 0.3 % (0.0-3.0); HEMATOCRIT 44.4 % (36.0-47.0); HEMOGLOBIN 14.4 g/dl (12.0-15.5); LYMPH # 1.1 10^3/uL (1.5-5.0); LYMPH % 7.9 % (24.0-44.0); MEAN CORPUSCULAR HEMOGLOBIN 32.6 pg (27.0-33.0); MEAN CORPUSCULAR HGB CONC 32.4 g/dl (32.0-36.5); MEAN CORPUSCULAR VOLUME 100.5 fl (80.0-96.0); MONO # 0.9 10^3/uL (0.0-0.8); MONO % 6.2 % (0.0-5.0); NEUTROPHILS # 11.6 10^3/uL (1.5-8.5); NEUTROPHILS % 84.9 % (36.0-66.0); PLATELET COUNT, AUTOMATED 185 10^3/uL (150-450); RED BLOOD COUNT 4.42 10^6/uL (4.00-5.40); WHITE BLOOD COUNT 13.7 10^3/uL (4.0-10.0)
[2020-04-09 12:40] LABS: ALBUMIN 3.4 GM/DL (3.2-5.2); ALT/SGPT 16 U/L (12-78); BILIRUBIN,TOTAL 0.4 MG/DL (0.2-1.0); BLOOD UREA NITROGEN 8 MG/DL (7-18); CALCIUM LEVEL 8.1 MG/DL (8.5-10.1); CARBON DIOXIDE LEVEL 26 MEQ/L (21-32); CHLORIDE LEVEL 105 MEQ/L (98-107); CREATININE FOR GFR 0.72 MG/DL (0.55-1.30); GLOMERULAR FILTRATION RATE > 60.0 (>51); GLUCOSE, FASTING 74 MG/DL (70-100); POTASSIUM SERUM 4.3 MEQ/L (3.5-5.1); SODIUM LEVEL 138 MEQ/L (136-145); TOTAL PROTEIN 6.9 GM/DL (6.4-8.2)
== END ==
LOC: M WUC 10:16
PROVIDERS: ATTEND Physician Assistant
DX: Z03.818 Encounter for observation for suspected exposure to other biological agents ruled out (principal); J20.9 Acute bronchitis, unspecified; Z72.0 Tobacco use
CPT/HCPCS: 36415; 71046; 80053; 85025; 87040; U0003

== ENCOUNTER 2020-04-29 20:25 | Emergency (ER) | payer OTHER ==
[~2020-04-29] VITALS: Ht 175.3 cm; Wt 68.2 kg
[2020-04-29] MEDS ORDERED: DIPH25TA4 PO (20:37)
[2020-04-29] MEDS ORDERED: FLUT1INH3 (20:37)
[2020-04-29] MEDS ORDERED: XANA1TAB2 PO (20:37)
[2020-04-29] MEDS ORDERED: NS 2,050 ML in IV 1 EA IV ONE (21:15)
[2020-04-29] MEDS ORDERED: dexameTHASONE 20MG/5ML VIAL (J1100 PER 1MG) IV ONE (21:15)
[2020-04-29 21:43] LABS: BASO % 0.7 % (0.0-1.0); EOS # 0.1 10^3/uL (0.0-0.5); EOS % 2.1 % (0.0-3.0); HEMATOCRIT 43.2 % (36.0-47.0); HEMOGLOBIN 14.2 g/dl (12.0-15.5); LYMPH # 2.4 10^3/uL (1.5-5.0); LYMPH % 42.2 % (24.0-44.0); MEAN CORPUSCULAR HEMOGLOBIN 31.8 pg (27.0-33.0); MEAN CORPUSCULAR HGB CONC 32.9 g/dl (32.0-36.5); MEAN CORPUSCULAR VOLUME 96.9 fl (80.0-96.0); MONO # 0.5 10^3/uL (0.0-0.8); MONO % 8.5 % (0.0-5.0); NEUTROPHILS # 2.7 10^3/uL (1.5-8.5); NEUTROPHILS % 46.2 % (36.0-66.0); PLATELET COUNT, AUTOMATED 228 10^3/uL (150-450); RED BLOOD COUNT 4.46 10^6/uL (4.00-5.40); WHITE BLOOD COUNT 5.8 10^3/uL (4.0-10.0)
[2020-04-29 21:51] LABS: VENOUS HCO3 25.9 MEQ/L (23.0-27.0); VENOUS O2 SATURATION 70.3 % (60.0-80.0); VENOUS PARTIAL PRESSURE CO2 52.1 mmHg (38.0-50.0); VENOUS PARTIAL PRESSURE O2 37.1 mmHg (30.0-50.0); VENOUS PH 7.315 UNITS (7.330-7.430); VENOUS STANDARD HCO3 22.9 MEQ/L; VENOUS TOTAL CO2 27.5 MEQ/L (24.0-28.0)
[2020-04-29] MEDS: COMBIVENT RESPIMAT 100-20MCG INHALER 4GM INH SCH ×3 (21:52→22:13)
[2020-04-29 22:14] LABS: ALBUMIN 3.6 GM/DL (3.2-5.2); ALT/SGPT 21 U/L (12-78); BILIRUBIN,DIRECT 0.1 MG/DL (0.0-0.2); BILIRUBIN,TOTAL 0.3 MG/DL (0.2-1.0); ETHYL ALCOHOL (ETHANOL) < 0.003 % (0.000-0.010); NT-PRO BNP 87 PG/ML (<125); THYROXINE (T4) 6.9 UG/DL (4.5-12.0); TOTAL PROTEIN 7.2 GM/DL (6.4-8.2)
[2020-04-29 22:43] LABS: AMPHETAMINES LEVEL URINE NEGATIVE (NEGATIVE); BARBITURATES URINE POSITIVE (NEGATIVE); BENZODIAZEPINES URINE POSITIVE (NEGATIVE); CANNABINOIDS URINE NEGATIVE (NEGATIVE); COCAINE METABOLITE URINE NEGATIVE (NEGATIVE); METHADONE URINE NEGATIVE (NEGATIVE); OPIATES URINE NEGATIVE (NEGATIVE); PHENCYCLIDINE URINE NEGATIVE (NEGATIVE)
[2020-04-30 00:22] VITALS: BP 102/49
[2020-04-30] MEDS ORDERED: DOXY100C37 PO (00:28)
[2020-04-30] MEDS ORDERED: PRED10TA2 PO (00:28)
[2020-04-30] MEDS ORDERED: DOXYCYCLINE HYCLATE 100MG TABLET PO ONE (00:30)
[2020-04-30] MEDS ORDERED: predniSONE 20 MG TAB PO ONE (00:30)
--- NOTE | 2020-04-30 07:40 | REP ---
Clinical: Cough and dyspnea . Comparison: 04/09/2020 . Findings: The mediastinum and cardiac silhouette are stable and within normal limits for portable technique. The lung cervantes are clear without acute consolidation, effusion, or pneumothorax. Skeletal structures are intact. Impression: No acute cardiopulmonary process appreciated. Electronically Signed by Kendrick Null MD 04/30/2020 07:31 A
== END 2020-04-30 00:54 | disposition home or self-care (01) ==
LOC: M ED 20:25
DX: J44.1 Chronic obstructive pulmonary disease with (acute) exacerbation (principal); F17.200 Nicotine dependence, unspecified, uncomplicated; Z88.8 Allergy status to other drugs, medicaments and biological substances; Z88.1 Allergy status to other antibiotic agents; Z88.6 Allergy status to analgesic agent; Z79.899 Other long term (current) drug therapy
CPT/HCPCS: 71045; 80047; 80076; 80307; 82803; 83605; 83880; 84436; 84443; 85025; 87040; 87486; 87581; 87633; 87798; 93041; 94640; 94760; 96361; 96374; 99285; G0480; J1100

== ENCOUNTER → 2020-10-18 | Outpatient (CLI) | payer OTHER ==
[~2020-10-18] MED LIST changes: +DIPH25TA4 PO; +DOXY100C37 PO; +FLUT1INH3; +PRED10TA2 PO; +XANA1TAB2 PO
--- NOTE | 2020-10-18 10:20 | REP ---
INDICATION: SOB, PAIN COMPARISON: None. TECHNIQUE: Frontal view of the chest with multiple views of the four hemithorax. FINDINGS: Frontal view of the chest demonstrates left lower lobe airspace disease compatible with pneumonia. Multiple views of the hemithorax demonstrates no acute rib fracture/injury or pathology. IMPRESSION: Left lower lobe pneumonia. Left ribs appear normal. <Electronically signed by Kendrick Null > 10/18/20 [id number]
== END ==
LOC: M WUC 09:44
PROVIDERS: ATTEND Nurse Practitioner Family
DX: R06.02 Shortness of breath (principal)

== ENCOUNTER 2021-01-13 13:39 | Emergency (ER) | payer OTHER ==
[~2021-01-13] VITALS: Ht 172.7 cm; Wt 74.1 kg
[2021-01-13 14:39] LABS: HEMATOCRIT 37.5 % (36.0-47.0); HEMOGLOBIN 12.1 g/dl (12.0-15.5); MEAN CORPUSCULAR HEMOGLOBIN 31.8 pg (27.0-33.0); MEAN CORPUSCULAR HGB CONC 32.3 g/dl (32.0-36.5); MEAN CORPUSCULAR VOLUME 98.4 fl (80.0-96.0); PLATELET COUNT, AUTOMATED 192 10^3/uL (150-450); RED BLOOD COUNT 3.81 10^6/uL (4.00-5.40); WHITE BLOOD COUNT 4.6 10^3/uL (4.0-10.0)
[2021-01-13 14:58] LABS: INR 0.89; PROTHROMBIN TIME 12.2 SECONDS (12.5-14.3)
[2021-01-13 14:59] LABS: PARTIAL THROMBOPLASTIN TIME 38.9 SECONDS (24.2-38.5)
[2021-01-13] MEDS ORDERED: ISOVUE-370 76% 100ML VIAL As Ordered ONE (15:03)
[2021-01-13 15:14] LABS: ALBUMIN 3.1 GM/DL (3.2-5.2); ALT/SGPT 12 U/L (12-78); BILIRUBIN,DIRECT 0.1 MG/DL (0.0-0.2); BILIRUBIN,TOTAL 0.3 MG/DL (0.2-1.0); CK-MB VALUE MASS < 1.0 NG/ML (<3.6); CPK CREATINE PHOSPHOKINASE 84 U/L (26-192); ETHYL ALCOHOL (ETHANOL) < 0.003 % (0.000-0.010); LIPASE 96 U/L (73-393); MB/CK RELATIVE INDEX 1.19 (< OR =4); TOTAL PROTEIN 6.5 GM/DL (6.4-8.2); TROPONIN I < 0.02 NG/ML (< 0.10)
--- NOTE | 2021-01-13 15:24 | REP ---
INDICATION: elevated d dimer, pleuritic CP ro PE. COMPARISON: 08/31/2019. TECHNIQUE: Chest CT with IV contrast, CT pulmonary artery angiography. FINDINGS: There are no emboli in the pulmonary trunk or central pulmonary arteries. There are no emboli in the pulmonary artery lobar segment branches. There is a left lower lobe infiltrate as an interval change. There is no pleural effusion. The thoracic aorta is unremarkable. Cardiac size is normal. There is no pericardial effusion. The visualized upper abdominal contents are unremarkable. IMPRESSION: There are no pulmonary emboli. There is a left lower lobe infiltrate. <Electronically signed by Oscar Barbosa > 01/13/21 [id number]
[2021-01-13 15:27] LABS: ATYPICAL LYMPH 1 % (0-5); BASOPHILS 1 % (0-1); EOSINOPHILS 6 % (0-3); LYMPHOCYTES 18 % (16-44); MONOCYTES 10 % (0-5); NEUTROPHILS 63 % (28-66); PLATELET ESTIMATE NORMAL (NORMAL)
--- NOTE | 2021-01-13 15:27 | REP ---
INDICATION: slurred speech, L arm weakness. COMPARISON: Comparison CT studies are dated October 29, 2019 and October 19, 2013.. TECHNIQUE: Helical scanning is acquired. 5 mm axial images were reformatted. Coronal MPR images were generated. FINDINGS: Bone window settings demonstrate an intact bony calvarium. There is no evidence of skull fracture or incidental bony calvarial lesion. The visualized paranasal sinuses appear clear. No intraorbital abnormality is seen. On soft tissue window setting images; the lateral, third, and fourth ventricles are normal in size and position. Navarrete-white differentiation pattern is normal above and below the tentorium. There are is no evidence of intracranial hemorrhage. No mass, edema, infarction, or midline shift is seen. No extra-axial fluid collection is appreciated. There is minimal vascular calcification in the distal internal carotid arteries. There are mild small vessel atherosclerotic low-density areas in the frontal lobes unchanged from the 2019 study right a little more prominent than left. Also unchanged from the 2012 study. IMPRESSION: Minimal small vessel changes and vascular calcification. Otherwise negative. No acute intracranial abnormality seen.. <Electronically signed by Thompson Dumont > 01/13/21 1520
[2021-01-13 15:39] LABS: APPEARANCE, URINE HAZY (CLEAR); BACTERIA, URINE AUTO NEGATIVE (NEGATIVE); BILIRUBIN, URINE AUTO 2+ (NEGATIVE); BLOOD, URINE BLOOD NEGATIVE (NEGATIVE); COLOR, URINE AMBER (YELLOW); GLUCOSE, URINE (UA) AUTO NEGATIVE (NEGATIVE); KETONE, URINE AUTO TRACE mg/dL (NEGATIVE); LEUKOCYTE ESTERASE, URINE AUTO NEGATIVE (NEGATIVE); MUCUS, URINE SMALL (NEGATIVE); NITRITE, URINE AUTO NEGATIVE (NEGATIVE); PROTEIN, URINE AUTO 2+ mg/dL (NEGATIVE); RBC, URINE AUTO 19 /HPF (0-3); SPECIFIC GRAVITY URINE AUTO 1.035 (1.002-1.035); SQUAMOUS EPITHELIAL CELL UR AU 10 /HPF (0-6); WBC, URINE AUTO 5 /HPF (0-3)
[2021-01-13] MEDS ORDERED: NS 500 ML IV ONE (15:55)
[2021-01-13 16:04] LABS: AMPHETAMINES LEVEL URINE NEGATIVE (NEGATIVE); BARBITURATES URINE NEGATIVE (NEGATIVE); BENZODIAZEPINES URINE POSITIVE (NEGATIVE); CANNABINOIDS URINE NEGATIVE (NEGATIVE); COCAINE METABOLITE URINE NEGATIVE (NEGATIVE); METHADONE URINE NEGATIVE (NEGATIVE); OPIATES URINE NEGATIVE (NEGATIVE); PHENCYCLIDINE URINE NEGATIVE (NEGATIVE)
[2021-01-13] MEDS ORDERED: DOXY100C37 PO (16:19)
[2021-01-13 16:30] VITALS: BP 114/57
--- NOTE | 2021-01-14 01:04 | ECGEPIP ---
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
== END 2021-01-13 16:58 | disposition home or self-care (01) ==
LOC: M ED 13:39
DX: J18.1 Lobar pneumonia, unspecified organism (principal); I44.0 Atrioventricular block, first degree; R06.00 Dyspnea, unspecified; R07.89 Other chest pain; R47.81 Slurred speech; E78.5 Hyperlipidemia, unspecified; J44.9 Chronic obstructive pulmonary disease, unspecified; F41.9 Anxiety disorder, unspecified; K56.0 Paralytic ileus; Z87.891 Personal history of nicotine dependence; Z82.49 Family history of ischemic heart disease and other diseases of the circulatory system; Z88.8 Allergy status to other drugs, medicaments and biological substances; Z88.1 Allergy status to other antibiotic agents; Z88.4 Allergy status to anesthetic agent; Z79.899 Other long term (current) drug therapy
CPT/HCPCS: 70450; 71275; 80047; 80076; 80307; 81001; 82077; 82550; 82553; 83690; 85025; 85610; 85730; 93005; 94760; 96360; 99284; Q9967

== ENCOUNTER → 2021-01-13 | Outpatient (CLI) | payer OTHER ==
--- NOTE | 2021-01-13 12:13 | REP ---
INDICATION: CHEST PAIN ON BREATHING. COMPARISON: LEFT RIB SERIES DATED 10/18/2020. TECHNIQUE: LEFT RIBS FOUR VIEWS. AP CHEST, SINGLE VIEW. FINDINGS: THERE ARE NO LEFT RIB FRACTURES OR OTHER LEFT RIB ABNORMALITIES. AP CHEST: THERE IS NO PNEUMOTHORAX, HEMOTHORAX OR PULMONARY CONTUSION. THE LUNG HINDS ARE CLEAR. THE LEFT LUNG AIRSPACE DISEASE IDENTIFIED ON THE COMPARISON STUDY HAS RESOLVED. IMPRESSION: NEGATIVE LEFT RIB SERIES. NEGATIVE AP CHEST. <Electronically signed by Oscar Barbosa > 01/13/21 [id number]
[2021-01-13 12:34] LABS: BASO % 0.9 % (0.0-1.0); EOS # 0.1 10^3/uL (0.0-0.5); HEMOGLOBIN 13.1 g/dl (12.0-15.5); LYMPH # 1.3 10^3/uL (1.5-5.0); LYMPH % 28.3 % (24.0-44.0); MEAN CORPUSCULAR HEMOGLOBIN 30.9 pg (27.0-33.0); MEAN CORPUSCULAR HGB CONC 31.2 g/dl (32.0-36.5); MEAN CORPUSCULAR VOLUME 99.1 fl (80.0-96.0); MONO # 0.5 10^3/uL (0.0-0.8); MONO % 10.5 % (2.0-8.0); NEUTROPHILS # 2.7 10^3/uL (1.5-8.5); NEUTROPHILS % 56.9 % (36.0-66.0); PLATELET COUNT, AUTOMATED 202 10^3/uL (150-450); RED BLOOD COUNT 4.24 10^6/uL (4.00-5.40); WHITE BLOOD COUNT 4.7 10^3/uL (4.0-10.0)
== END ==
LOC: M WUC 11:23
PROVIDERS: ATTEND Physician Assistant
DX: R07.1 Chest pain on breathing (principal)

== ENCOUNTER → 2021-01-26 | Outpatient (CLI) | payer OTHER ==
--- NOTE | 2021-01-27 04:23 | REP ---
INDICATION: PLEURISY COMPARISON: 10/18/2020 TECHNIQUE: PA and lateral. FINDINGS: The mediastinum and cardiac silhouette are normal. The lung cervantes demonstrate chronic interstitial changes similar to prior examination. Previously noted left lower lobe infiltrate has resolved. Subtle atelectasis cannot be excluded. No focal discrete consolidation, effusion, or pneumothorax. Skeletal structures intact. IMPRESSION: Diffuse chronic interstitial changes suggesting emphysematous disease and less likely acute diffuse bronchitis. Previous left lower lobe infiltrate has resolved. No obvious new acute focal process. <Electronically signed by Kendrick Null > 01/27/21 [id number]
== END ==
LOC: M WUC 15:00
PROVIDERS: ATTEND Physician Assistant
DX: R09.1 Pleurisy (principal)

== ENCOUNTER → 2021-03-05 | Outpatient (REF) | payer OTHER | LOC: M LAB REF 16:40 | PROVIDERS: ATTEND Physician Assistant | DX: R09.1 Pleurisy (principal) ==

== ENCOUNTER → 2021-05-06 | Outpatient (CLI) | payer OTHER ==
[~2021-05-06] MED LIST changes: -DOXY100C37 PO; +DOXY1CAP62 PO
--- NOTE | 2021-05-06 17:03 | REP ---
INDICATION: OTHER NON SPECIFIC FINDING OF LUNG FIELD COMPARISON: 01/13/2021 TECHNIQUE: Axial noncontrast images from the thoracic inlet to the upper abdomen with coronal and sagittal reformations. This CT examination was performed using the following dose reduction techniques: Automated exposure control, adjustment of mA and/or kv according to the patient's size, and use of iterative reconstruction technique. FINDINGS: Lung cervantes demonstrate early emphysematous changes along with few small bullae and mild bronchiectasis with subtle peribronchial thickening. Previously noted left lower lobe pneumonia and medial right middle lobe atelectasis have resolved. Small focal area of scarring identified at the lingula. There is no acute consolidation, suspicious nodule or mass. No effusion. No pneumothorax. Tracheobronchial tree is patent. Relatively normal nonspecific mediastinal lymph nodes measure up to roughly 9 mm short axis diameter at the precarinal space. Mild atherosclerotic changes to the thoracic aorta noted without aneurysm. No cardiomegaly or pericardial effusion. Surrounding musculoskeletal structures intact and without acute osseous abnormality. Limited upper abdomen demonstrates normal bilateral adrenal glands. IMPRESSION: 1. Mild emphysematous disease. 2. Previously noted left lower lobe infiltrate and right middle lobe atelectasis resolved. 3. No acute mediastinal or pleuroparenchymal process appreciated. <Electronically signed by Kendrick Null > 05/06/21 [id number]
== END ==
LOC: M RAD 16:17
PROVIDERS: ATTEND Physician Assistant
DX: R91.8 Other nonspecific abnormal finding of lung field (principal)

== ENCOUNTER 2021-08-14 08:59 | Emergency (ER) | payer OTHER ==
[~2021-08-14] VITALS: Ht 175.3 cm; Wt 75.2 kg
[2021-08-14 08:59] VITALS: BP 99/51
[~2021-08-14 08:59] MED LIST changes: +METH-1177 PO; -METH10TA2 PO
--- OUTSIDE RECORDS SUMMARY | 2021-08-14 09:06 | CCD | Continuity of Care Document ---
Author Author Natan RUELAS Organization Unknown Address [address] [place] [address] Phone [phone] Care Team Providers Care Gta Name Role Phone AUTM Unavailable Gardenia Tan AUTM [phone] Problems Active Problems Provider Date Chronic obstructive lung disease Dorian Arellano D.O. Onset: 04/24/2020 Other nonspecific abnormal finding of lung field Dorian Arellano D.O. Onset: 04/24/2020 Nicotine dependence, cigarettes, with other nicotine-i nduced disorders Dorian Arellano D.O. Onset: 04/24/2020 Social History Type Date Description Comments Sex Unknown Tobacco Use Start: Unknown Current Cigarette Smoker 2 Packs Daily ETOH Use Denies alcohol use Recreational Drug Use Denies Drug Use Tobacco Use Start: 10/30/81 Patient is a current smoker, smo kes every day CURRENTLY SMOKING LESS THAN 10 CIGARETTES PER DAY HISTORY OF 2 PPD Smoking Status Reviewed: 05/19/21 Patient is a current smoker, smokes every day CURRENTLY SMOKING LESS THAN 10 CIGARETTES PER DAY HISTORY OF 2 PPD Allergies, Adverse Reactions, Alerts Active Allergies Reaction Severity Comments Date Imitrex CHEST PAIN 11/20/2018 Haldol Anaphylaxis 04/24/2020 Inactive Allergies NKDA 09/15/2009 Medications Active Medications SIG Qnty Indications Ordering Provide r Date Trelegy Ellipta 200- 62.5-25mcg/Inh Aerosol inhale one puff by mouth every day 60units R91.8 Dorian berry D.O. 05/19/2021 Xanax 1mg Tablets as needed Unknown Benadryl Allergy 25mg Tablets 3 tabs by mouth at bedtime 2tabs Unknown Albuterol Sulfate HFA 108(90Base) mcg/Act Aerosol inhale two puffs by mouth four times a day as needed Unknown History Medications Fluticasone Propionate/Salmeterol 232-14mcg/Act Aerosol Inhale One puff By Mouth Twice A Day 1units R91.8 Bora OliverO. 05/04/2021 - 05/19/2021 Prednisone 10mg Tablets 4 tabs daily x 3days, then 3 tabs daily x 3days, then 2 tabs daily x 3days, then 1 tab daily x 3days, then 1/2 tab daily for 4days 32tabs R09.1 Bora OliverOGena 01/26/2021 - 02/24/2021 Cefdinir 300mg Capsules 1 tab by mouth twice a day x 10 days 20caps R09.1 Bora OliverOGena - 02/24/2021 Azithromycin 250mg Tablets 2 by mouth on 1st day, 1 by mouth every day thereafter 6tabs J44.9 Bora Chandler SeO. 12/16/2020 - 01/21/2021 Prednisone 10mg Tablets 4 tabs by mouth every day x5d, 3 tabs by mouth every day x5d, 2 tabs by mouth every day x5d, 1 tab x 5 days, then 1/2 tab by mouth x 5 days 53tabs Kris Arellano D.O. 12/16/2020 - 01/21/2021 Nystatin 556851Mbqp/ML Suspension 5 milliliters swish and swallow twice a day x 7 days 70units Dorian Arellano D.O. 12/16/2020 - 02/24/2021 Medications Administered in Office Medication SIG Qnty Indications Ordering Provider Date Covid-19 vaccine, Unspecified Inj ection Unknown 02/24/2021 Covid-19 vaccine, Unspecified Inj ection Unknown 01/12/2021 Immunizations Description No Information Available Vital Signs Date Vital Result Comment 05/19/2021 3:29pm BP Systolic 110 mmHg BP Diastolic 60 mmHg Heart Rate 94 /min O2 % BldC Oximetry 93 % Height 69 inches 5'9" Weight 168.00 lb BMI (Body Mass Index) 24.8 kg/m2 [place] Body Weight 145 lb Weight 76.205 kg BSA (Body Surface Area) 1.92 m2 03/05/2021 2:27pm BP Systolic 122 mmHg BP Diastolic 80 mmHg Heart Rate 90 /min O2 % BldC Oximetry 95 % Height 69 inches 5'9" Weight 167.00 lb BMI (Body Mass Index) 24.7 kg/m2 [place] Body Weight 145 lb Weight 75.751 kg BSA (Body Surface Area) 1.91 m2 Results Test Acquired Date Facility Test Result H/L Range Note Antinuclear Antibodies 03/05/2021 [facility] Main Lab [address] [place] [address] [phone] Antinuclear Antibodies Direct Negative Normal Ne gative CLINICAL EDUCATION COORDINATOR Antibodies <0.2 AI Normal 0.0-0.9 Young Antibodies <0.2 AI Normal 0.0-0.9 Sjogren's Anti SS-A <0.2 AI Normal 0.0-0.9 Sjogren's Anti SS-B <0.2 AI Normal 0.0-0.9 Anti Double Strand Dna Patience 03/05/2021 [facility] Main Lab [address] [place] [address] [phone] Anti DS-Dna AB Negative Normal Negative 1 Anti-Neutrophil Cytoplasmic AB 03/05/2021 [facility] Main Lab [address] [place] [address] [phone] Cytoplasmic Neutrop AB Anca-C <1:20 titer Normal N eg:<1:20 Perinuclear AB Anca-P <1:20 titer Normal Neg:<1:20 2 Anca-Atypical <1:20 titer Normal Neg:<1:20 3 FVL/[place] 03/05/2021 [employer] [facility] SEE IMAGE FVC-Pred 4.13 L FVC-Pre 2.59 L FVC-%Pred-Pre 62 L FVC-LLN 3.33 L Fev1-Pred 3.25 L Fev1-Pre 2.12 L Fev1-%Pred-Pre 65 L Fev1-LLN 2.57 L Fev6-Pred 4.02 L Fev6-Pre 2.59 L Fev6-%Pred-Pre 64 L Fev6-LLN 3.23 L Lwi8vmo-Zvuk 80 % Pex3fdo-Xyu 82 % Wea5kru-%Pred-Pre 102 % Dnw6und-ZXV 70 % Mkw8env-Zyfb 97 % Teg1owg-Dwh 100 % Vnh2xju-%Pred-Pre 102 % FEFMax-Pred 7.46 L/E/sec FEFMax-Pre 5.28 L/E/sec FEFMax-%Pred-Pre 70 L/E/sec FEFMax-LLN 5.47 L/E/sec Tkr2012-Ttqb 2.98 L/E/sec Zml9690-Rrw 2.09 L/E/sec Sor6149-%Pred-Pre 70 L/E/sec Gry4680-FQC 1.54 L/E/sec ExpTime-Pre 4.39 sec Qjl2beu1-Ltjq 82 % Qoi5kiq9-Ltc 82 % Vfz3uvb5-%Pred-Pre 100 % Fvv2koy0-NZU 73 % Connective Tissue Panel 03/05/2021 [facility] Main Lab [address] [place] [address] [phone] Erythrocyte Sedimentation Rate 37 mm/hr High 0 -30 FVL/[place] 01/26/2021 [employer] [facility] SEE IMAGE FVC-Pred 4.13 L FVC-Pre 2.32 L FVC-%Pred-Pre 56 L FVC-LLN 3.33 L Fev1-Pred 3.25 L Fev1-Pre 1.75 L Fev1-%Pred-Pre 53 L Fev1-LLN 2.57 L Fev6-Pred 4.02 L Fev6-Pre 2.32 L Fev6-%Pred-Pre 57 L Fev6-LLN 3.23 L Ugw2xxk-Nomh 80 % Yve7puv-Pie 76 % Wmp4dce-%Pred-Pre 94 % Zhh3lpb-NGY 70 % Rar0ewh-Gsnr 97 % Bzs8izi-Jmt 100 % Riy3tkh-%Pred-Pre 102 % FEFMax-Pred 7.46 L/E/sec FEFMax-Pre 2.46 L/E/sec FEFMax-%Pred-Pre 32 L/E/sec FEFMax-LLN 5.47 L/E/sec Mnv7482-Xoyf 2.98 L/E/sec Zae5696-Thj 1.53 L/E/sec Ttr2797-%Pred-Pre 51 L/E/sec Mac6060-FJQ 1.54 L/E/sec ExpTime-Pre 4.01 sec Bmz1hkd1-Jvdo 82 % Eaz5rvh1-Edf 76 % Jyd1zgu8-%Pred-Pre 92 % Ezr0vym9-UFT 73 % Drug Eval Toxicology ED Only 01/13/2021 [facility] Main Lab [address] [place] [address] [phone] Amphetamines Level Urine NEGATIVE Normal Negativ e Barbiturates Urine NEGATIVE Normal Negative Benzodiazepines Urine POSITIVE High Negative Cannabinoids Urine NEGATIVE Normal Negative Cocaine Metabolite Urine NEGATIVE Normal Negative Methadone Urine NEGATIVE Normal Negative Opiates Urine NEGATIVE Normal Negative Phencyclidine Urine NEGATIVE Normal Negative 4 Istat Chem8+ Panel 01/13/2021 [facility] Lab [address] [place] [address] [phone] iSTAT HCT 37.0 % Low 38.0-51.0 iSTAT Glucose 100 mg/dL Normal 70-105 iSTAT Sodium 136 mEq/L Normal 136-145 iSTAT Potassium 4.6 mEq/L Normal 3.5-5.1 iSTAT CA++ 3.8 mg/dL Low 4.5-5.3 iSTAT Chloride 97 mEq/L Low 98-109 iSTAT Co2 31.0 MM/L High 23.0-27.0 iSTAT BUN 7 mg/dL Low 8-26 iSTAT Creatinine 0.8 mg/dL Normal 0.6-1.3 PT & Aptt 01/13/2021 [facility] Main Lab [address] [place] [address] [phone] Prothrombin Time 12.2 seconds Normal 12.5-14.3 Inr 0.89 Normal 5 Partial Thromboplastin Time 38.9 seconds High 24.2-38.5 Cardiac Marker Panel 01/13/2021 [facility] enter Main Lab [address] [place] [address] [phone] CPK Creatine Phosphokinase 84 U/L Normal 26-19 2 CK-MB Value Mass < 1.0 NG/ML Normal <3.6 MB/CK Relative Index 1.19 Normal < Or =4 6 Troponin I < 0.02 NG/ML Normal < 0.10 7 Liver Profile 01/13/2021 [facility] Main Lab [address] [place] [address] [phone] Ast/Sgot 22 U/L Normal 7-37 Alt/SGPT 12 U/L Normal 12-78 Alkaline Phosphatase 88 U/L Normal 45-117 Bilirubin,Total 0.3 mg/dL Normal 0.2-1.0 Bilirubin,Direct 0.1 mg/dL Normal 0.0-0.2 Total Protein 6.5 GM/DL Normal 6.4-8.2 Albumin 3.1 GM/DL Low 3.2-5.2 Albumin/Globulin Ratio 0.9 Low 1.2-2.2 Laboratory test finding 01/13/2021 [facility] Main Lab [address] [place] [address] [phone] Lipase 96 U/L Normal 73-393 Ethyl Alcohol (Ethanol) < 0.003 % Normal 0.000-0.010 CBC With Differential 01/13/2021 [facility] Main Lab [address] [place] [address] [phone] White Blood Count 4.6 10 Normal 4.0-10.0 Red Blood Count 3.81 10 Low 4.00-5.40 Hemoglobin 12.1 g/dL Normal 12.0-15.5 Hematocrit 37.5 % Normal 36.0-47.0 Mean Corpuscular Volume 98.4 fl High 80.0-96.0 Mean Corpuscular Hemoglobin 31.8 pg Normal 27.0-33.0 Mean Corpuscular HGB Conc 32.3 g/dL Normal 32.0-36.5 Red Cell Distribution Width 15.5 % High 11.5-14.5 Platelet Count, Automated 192 10 Normal 150-450 Nucleated Red Blood Cell % 0.0 % Normal 0-0 Differential 01/13/2021 [facility] Main Lab [address] [place] [address] [phone] Neutrophils 63 % Normal 28-66 Bands 1 % Normal < 11 Lymphocytes 18 % Normal 16-44 Monocytes 10 % High 0-5 Eosinophils 6 % High 0-3 Basophils 1 % Normal 0-1 Atypical Lymph 1 % Normal 0-5 Laboratory test finding 01/13/2021 [facility] Main Lab [address] [place], [place] [phone] Platelet Estimate NORMAL Normal Normal Ua Routine 01/13/2021 [facility] Main Lab [address] [place] [address] [phone] Appearance, Urine HAZY Normal Clear Color, Urine FAYE Normal Yellow PH,Urine 5.0 units Normal 5.0-9.0 Specific Lucas Urine Auto 1.035 Normal 1.002-1.035 Protein, Urine Auto 2+ mg/dL High Negative Glucose, Urine (Ua) Auto NEGATIVE mg/dL Normal Negative Ketone, Urine Auto TRACE mg/dL High Negative Urobilinogen, Urine Auto 4.0 mg/dL High 0.0-2.0 Bilirubin, Urine Auto 2+ High Negative Nitrite, Urine Auto NEGATIVE Normal Negative Leukocyte Esterase, Urine Auto NEGATIVE Normal Negative Blood, Urine Blood NEGATIVE Normal Negative WBC, Urine Auto 5 /HPF High 0-3 RBC, Urine Auto 19 /HPF High 0-3 Bacteria, Urine Auto NEGATIVE Normal Negative Squamous Epithelial Cell Ur AU 10 /HPF Normal 0-6 Mucus, Urine SMALL Normal Negative Hyaline Cast, Urine Auto 1 /LPF Normal 0-1 1 Performed at: - [facility] [id number] Documentation Writer: Carlos Live MD, Phone: [phone] Performed at: [facility] [id number] Documentation Writer: Princess Ballard MD, Phone: [phone] 2 The presence of positive flu orescence exhibiting P-ANCA or C-ANCA patterns alone is not specific for the diagnosis of Khadijah's Granulomatosis (WG) or microscopic polyangiitis. Decisions about treatment should not be based solely on ANCA IFA results. The International ANCA Group Consensus recommends follow up testing of positive sera with both HI- 3 and MPO-ANCA enzyme immunoassays. As m any as 5% serum samples are positive only by EIA. Ref. AM J Clin Pathol 1999;111:507-513. 3 The atypical pANCA pattern h as been observed in a significant percentage of patients with ulcerative colitis, primary sclerosing cholangitis and autoimmune hepatitis. 4 ALL PRESUMPTIVE POSITIVE FINDINGS ARE UNCONFIRMED THRESHOLD IN NG/ML AMPHETAMINES/METHAMPHET 1000 BARBITURATES 200 BENZODIAZEPINES 200 CANNABINOIDS (THC) 50 COCAINE METABOLITE 300 METHADONE 300 OPIATES 300 PHENCYCLIDINE 25 RESULTS ARE FOR MEDICAL PURPOSES ONLY. ALL URINE SPECIMENS WILL BE SAVED FOR 3 DAYS. IF CONFIRMATION OF A PRESUMPTIVE POSITIVE SCREEN RESULT IS DESIRED, CALL CHEMISTRY ([phone]) AND REQUEST URINE TO BE SENT TO REFERENCE LAB. FOR A LIST OF CLOSELY RELATED COMPOUNDS PLEASE CALL THE LAB. 5 THERAPUTIC HUMAN INR VALUES INDICATIONS NORMAL RANGES PROPHYLAXIS/TREATMENT OF: VENOUS THROMBOSIS 2.0-3.0 PULMONARY EMBOLISM 2.0-3.0 PREVENTION OF SYSTEMIC EMBOLISM FROM: TISSUE HEART VALVES 2.0-3.0 ACUTE MYOCARDIAL INFARCTION 2.0-3.0 VALVULAR HEART DISEASE 2.0-3.0 ATRIAL FIBRILLATION 2.0-3.0 MECHANICAL VALVES(HIGH RISK) 2.5-3.5 RECURRENT MYOCARDIAL INFARCTION 2.5-3.5 6 DIAGNOSIS CRITERIA MMB ng/ml Relative Index (RI) NON-AMI < or = 5 N/A GOLDSTEIN ZONE > 5 < or = 4 AMI > 5 > 4 7 Troponin I Reference Interva l for Clinical Data Mary D LOCI: 99th Percentile= 0.00-0.045 ng/ml Risk Stratification: <= 0.10 ng/ml Decreased Risk for Adverse Clinical Events. 0.10-1.50 ng/ml Increased Risk for Adv erse Clinical Events. Evaluation of additional criterion and/or repeat testing in 2-6 hours is suggested to rule out myocardial damage. >= 1.50 ng/ml Indicative of Myocardial Injury. Procedures Date Code Description Status 05/19/2021 37535 Tobacco Cessation Counseling Com pleted 05/19/2021 78956 Office/Outpatient Established Mo d MDM 30-39 Min Completed 03/05/2021 92458 Office/Outpatient Established Mo d MDM 30-39 Min Completed 03/05/2021 79964 Spirometry Completed 01/26/2021 09335 Office/Outpatient Established Mo d MDM 30-39 Min Completed 01/26/2021 48236 Spirometry Completed 12/01/2020 17242 Tobacco Cessation Counseling Com pleted 12/01/2020 05919 Office/Outpatient Established Mo d MDM 30-39 Min Completed 12/01/2020 70876 Spirometry Completed Medical Devices Description No Information Available Encounters Type Date Location Provider Dx Diagnosis Office Visit 03/05/2021 2:30p [facility] R09.1 Pleurisy J44.9 Chronic obstructive pulmonar y disease, unspecified F17.218 Nicotine dependence, cigaret yvette, w oth disorders Office Visit 01/26/2021 1:30p [facility] R09.1 Pleurisy R91.8 Other nonspecific abnormal f inding of lung field J44.9 Chronic obstructive pulmonar y disease, unspecified Z87.891 Personal history of nicotine dependence Office Visit 12/01/2020 9:30a [facility] J44.9 Chronic obstructive pulmonary disease, u nspecified R91.8 Other nonspecific abnormal f inding of lung field F17.218 Nicotine dependence, cigaret yvette, w oth disorders Assessments Date Code Description Provider 05/19/2021 J43.1 Panlobular emphysema Roberto coronado, PA 05/19/2021 R91.8 Other nonspecific abnormal findi ng of lung field Roberto Ruelas, PA 05/19/2021 F17.218 Nicotine dependence, cigarettes, with other nicotine-induced disorders Roberto Ruelas, PA 03/05/2021 R09.1 Pleurisy Roberto Ruelas, PA 03/05/2021 J44.9 Chronic obstructive pulmonary di sease, unspecified Roberto Ruelas, PA 03/05/2021 F17.218 Nicotine dependence, cigarettes, with other nicotine-induced disorders Roberto Ruelas, PA 03/03/2021 J44.9 Chronic obstructive pulmonary di sease, unspecified Roberto Ruelas, PA 03/03/2021 R91.8 Other nonspecific abnormal findi ng of lung field Roberto Ruelas, PA 01/26/2021 R09.1 Pleurisy Roberto Ruelas, PA 01/26/2021 R91.8 Other nonspecific abnormal findi ng of lung field Roberto Ruelas, PA 01/26/2021 J44.9 Chronic obstructive pulmonary di sease, unspecified Roberto Ruelas, PA 01/26/2021 Z87.891 Personal history of nicotine dep endence Roberto Ruelas, PA 12/01/2020 J44.9 Chronic obstructive pulmonary di sease, unspecified [facility] 12/01/2020 R91.8 Other nonspecific abnormal findi ng of lung field [facility] 12/01/2020 F17.218 Nicotine dependence, cigarettes, with other nicotine-induced disorders [facility] Plan of Treatment Future Appointment(s):* 11/25/2021 9:30 am - [facility] * 08/19/2021 9:00 am - [facility] 05/19/2021 - [facility]* J43.1 Panlobular emphysema * R91.8 Other nonspecific abnormal finding of lung field * F17.218 Nicotine dependence, cigarettes, with other nicotine-induced disorders * * Follow up:* 1. Follow up in 3 months with jorge 2. Chest CT in 6 months with follow up after chest CT Functional Status Description No Information Available Mental Status Description No Information Available Referrals Refer to Dr Reason for Referral Status Appt Date Radiology/Procedure 23696 Closed Dorian Arellano D.O. COPD/ABN FINDING LUNG FIELD Scheduled 03/03/2021 [facility] [address] [place], [place] [address] [phone]
--- OUTSIDE RECORDS SUMMARY | 2021-08-14 09:06 | CCD | Continuity of Care Document ---
Author Author Natan RUELAS Organization Unknown Address [address] [place] [address] Phone [phone] Care Team Providers Care Angle Shearer Name Role Phone AUTM Unavailable Gardenia Tan AUTM [phone] Problems Active Problems Provider Date Chronic obstructive [...] Kris Arellano D.O. 12/16/2020 - 01/21/2021 Nystatin [id number] Suspension 5 milliliters swish and swallow twice [...] lb BMI (Body Mass Index) 24.8 kg/m2 [place] Body Weight 145 lb Weight 76.205 kg BSA (Body Surface Area) 1.92 m2 03/05/2021 2:27pm BP Systolic 122 mmHg BP Diastolic 80 mmHg Heart Rate 90 /min O2 % BldC Oximetry 95 % Height 69 inches 5'9" Weight 167.00 lb BMI (Body Mass Index) 24.7 kg/m2 [place] Body Weight 145 lb Weight 75.751 kg BSA (Body Surface Area) 1.91 m2 Results Test Acquired Date Facility Test Result H/L Range Note Antinuclear Antibodies 03/05/2021 [facility] Main Lab [address] [place] [address] [phone] Antinuclear Antibodies Direct Negative Normal Ne gative SPINNING [employer]PERATOR HYDRAULIC Antibodies <0.2 AI Normal 0.0-0.9 Young Antibodies <0.2 AI Normal 0.0-0.9 Sjogren's Anti SS-A <0.2 AI Normal 0.0-0.9 Sjogren's Anti SS-B <0.2 AI Normal 0.0-0.9 Anti Double Strand Dna Patience 03/05/2021 [facility] Main Lab [address] [place] [address] [phone] Anti DS-Dna AB Negative Normal Negative 1 Anti-Neutrophil Cytoplasmic AB 03/05/2021 [facility] Main Lab [address] [place] [address] [phone] Cytoplasmic Neutrop AB Anca-C <1:20 titer Normal N eg:<1:20 Perinuclear AB Anca-P <1:20 titer Normal Neg:<1:20 2 Anca-Atypical <1:20 titer Normal Neg:<1:20 3 FVL/[place] 03/05/2021 [employer] PDFReport SEE IMAGE FVC-Pred 4.13 L FVC-Pre 2.59 L FVC-%Pred-Pre 62 L FVC-LLN 3.33 L Fev1-Pred 3.25 L Fev1-Pre 2.12 L Fev1-%Pred-Pre 65 L Fev1-LLN 2.57 L Fev6-Pred 4.02 L Fev6-Pre 2.59 L Fev6-%Pred-Pre 64 L Fev6-LLN 3.23 L Whe6vao-Nqnn 80 % Swa7kmc-Wnh 82 % Lqm9xvy-%Pred-Pre 102 % Qao6hdb-BFM 70 % Dcu6ygh-Jjri 97 % Dfn3nbf-Bal 100 % Zfh4szg-%Pred-Pre 102 % FEFMax-Pred 7.46 L/E/sec FEFMax-Pre 5.28 L/E/sec FEFMax-%Pred-Pre 70 L/E/sec FEFMax-LLN 5.47 L/E/sec Nok7441-Jzaq 2.98 L/E/sec Civ1095-Bsr 2.09 L/E/sec Cty3413-%Pred-Pre 70 L/E/sec Bkj4296-XHX 1.54 L/E/sec ExpTime-Pre 4.39 sec Sqm4csj0-Cenq 82 % Epy0oyt0-Buk 82 % Bpg0tzo1-%Pred-Pre 100 % Ebw3dim6-YRZ 73 % Connective Tissue Panel 03/05/2021 [facility] Main Lab [address] [place] [address] [phone] Erythrocyte Sedimentation Rate 37 mm/hr High 0 -30 FVL/[place] 01/26/2021 [facility] PDFReport SEE IMAGE FVC-Pred 4.13 L FVC-Pre 2.32 L FVC-%Pred-Pre 56 L FVC-LLN 3.33 L Fev1-Pred 3.25 L Fev1-Pre 1.75 L Fev1-%Pred-Pre 53 L Fev1-LLN 2.57 L Fev6-Pred 4.02 L Fev6-Pre 2.32 L Fev6-%Pred-Pre 57 L Fev6-LLN 3.23 L Scz0tvz-Zbdm 80 % Bnj6fnp-Ljb 76 % Gjc8jwx-%Pred-Pre 94 % Icb6ahv-TKL 70 % Gtr3dds-Jtmp 97 % Kkf1nnf-Orw 100 % Yrt2hfa-%Pred-Pre 102 % FEFMax-Pred 7.46 L/E/sec FEFMax-Pre 2.46 L/E/sec FEFMax-%Pred-Pre 32 L/E/sec FEFMax-LLN 5.47 L/E/sec Ean0977-Txxc 2.98 L/E/sec Vcw4705-Vsx 1.53 L/E/sec Gpe5246-%Pred-Pre 51 L/E/sec Vdn1635-NQJ 1.54 L/E/sec ExpTime-Pre 4.01 sec Xxk0ezy6-Wcgn 82 % Ovj9lvk2-Gws 76 % Ctf2tch8-%Pred-Pre 92 % Hrc2ext5-DIT 73 % Drug Eval Toxicology ED Only 01/13/2021 [facility] Main Lab [address] [place] [address] [phone] Amphetamines Level Urine NEGATIVE Normal Negativ e Barbiturates Urine NEGATIVE Normal Negative Benzodiazepines Urine POSITIVE High Negative Cannabinoids Urine NEGATIVE Normal Negative Cocaine Metabolite Urine NEGATIVE Normal Negative Methadone Urine NEGATIVE Normal Negative Opiates Urine NEGATIVE Normal Negative Phencyclidine Urine NEGATIVE Normal Negative 4 Istat Chem8+ Panel 01/13/2021 [facility] Main Lab [address] [place] [address] [phone] iSTAT HCT 37.0 % Low 38.0-51.0 iSTAT Glucose 100 mg/dL Normal 70-105 iSTAT Sodium 136 mEq/L Normal 136-145 iSTAT Potassium 4.6 mEq/L Normal 3.5-5.1 iSTAT CA++ 3.8 mg/dL Low 4.5-5.3 iSTAT Chloride 97 mEq/L Low 98-109 iSTAT Co2 31.0 MM/L High 23.0-27.0 iSTAT BUN 7 mg/dL Low 8-26 iSTAT Creatinine 0.8 mg/dL Normal 0.6-1.3 PT & Aptt 01/13/2021 [facility] Main Lab [address] [place] [address] [phone] Prothrombin Time 12.2 seconds Normal 12.5-14.3 Inr 0.89 Normal 5 Partial Thromboplastin Time 38.9 seconds High 24.2-38.5 Cardiac Marker Panel 01/13/2021 [facility] enter Main Lab [address] [place] [address] [phone] CPK Creatine Phosphokinase 84 U/L Normal 26-19 2 CK-MB Value Mass < 1.0 NG/ML Normal <3.6 MB/CK Relative Index 1.19 Normal < Or =4 6 Troponin I < 0.02 NG/ML Normal < 0.10 7 Liver Profile 01/13/2021 [facility] Main Lab [address] [place] [address] [phone] Ast/Sgot 22 U/L Normal 7-37 Alt/SGPT 12 U/L Normal 12-78 Alkaline Phosphatase 88 U/L Normal 45-117 Bilirubin,Total 0.3 mg/dL Normal 0.2-1.0 Bilirubin,Direct 0.1 mg/dL Normal 0.0-0.2 Total Protein 6.5 GM/DL Normal 6.4-8.2 Albumin 3.1 GM/DL Low 3.2-5.2 Albumin/Globulin Ratio 0.9 Low 1.2-2.2 Laboratory test finding 01/13/2021 [facility] Main Lab [address] [place] [address] [phone] Lipase 96 U/L Normal 73-393 Ethyl Alcohol (Ethanol) < 0.003 % Normal 0.000-0.010 CBC With Differential 01/13/2021 [facility] Main Lab [address] [place] [address] [phone] White Blood Count 4.6 10 Normal 4.0-10.0 [...] % 0.0 % Normal 0-0 Differential 01/13/2021 [facility] Main Lab [address] [place] [address] [phone] Neutrophils 63 % Normal 28-66 Bands 1 % Normal < 11 Lymphocytes 18 % Normal 16-44 Monocytes 10 % High 0-5 Eosinophils 6 % High 0-3 Basophils 1 % Normal 0-1 Atypical Lymph 1 % Normal 0-5 Laboratory test finding 01/13/2021 [facility] Main Lab [address] [place], [place] [phone] Platelet Estimate NORMAL Normal Normal Ua Routine 01/13/2021 [facility] Main Lab [address] [place] [address] [phone] Appearance, Urine HAZY Normal Clear Color, Urine FAYE Normal Yellow PH,Urine 5.0 units Normal 5.0-9.0 Specific [place] Urine Auto 1.035 Normal 1.002-1.035 Protein, Urine [...] /LPF Normal 0-1 1 Performed at: - [facility] [id number] Pediatric Geneticist: Carlos Live MD, Phone: [phone] Performed at: [facility] [id number] Pediatric Geneticist: Princess Ballard MD, Phone: [phone] 2 The presence of positive flu orescence exhibiting P-ANCA or C-ANCA patterns alone is not specific for the diagnosis of Khadijah's Granulomatosis (WG) or microscopic polyangiitis. Decisions about treatment should not be based solely on ANCA IFA results. The [employer] ANCA Group Consensus recommends follow up testing of positive sera with both FL- 3 and MPO-ANCA enzyme immunoassays. As m [...] 7 Troponin I Reference Interva l for [facility] [place] LOCI: 99th Percentile= 0.00-0.045 ng/ml Risk Stratification: <= 0.10 ng/ml Decreased Risk for Adverse Clinical Events. 0.10-1.50 ng/ml Increased Risk for Adv erse Clinical Events. Evaluation of additional criterion and/or repeat testing in 2-6 hours is suggested to rule out myocardial damage. >= 1.50 ng/ml Indicative of Myocardial Injury. Procedures Date Code Description Status 05/19/2021 53589 Tobacco Cessation Counseling Com pleted 05/19/2021 49123 Office/Outpatient Established Mo d MDM 30-39 Min Completed 03/05/2021 26636 Office/Outpatient Established Mo d MDM 30-39 Min Completed 03/05/2021 27689 Spirometry Completed 01/26/2021 62037 Office/Outpatient Established Mo d MDM 30-39 Min Completed 01/26/2021 63355 Spirometry Completed 12/01/2020 25814 Tobacco Cessation Counseling Com pleted 12/01/2020 07901 Office/Outpatient Established Mo d MDM 30-39 Min Completed 12/01/2020 02501 Spirometry Completed Medical Devices Description No Information Available Encounters Type Date Location Provider Dx Diagnosis Office Visit 05/19/2021 3:30p [facility] VIKTOR May J43.1 Panlobular emphysema R91.8 Other nonspecific abnormal f inding of lung field F17.218 Nicotine dependence, cigaret yvette, w oth disorders Office Visit 03/05/2021 2:30p [facility] Roberto Ruelas, VIKTOR R09.1 Pleurisy J44.9 Chronic obstructive pulmonar y disease, unspecified F17.218 Nicotine dependence, cigaret yvette, w oth disorders Office Visit 01/26/2021 1:30p [facility] VIKTOR May R09.1 Pleurisy R91.8 Other nonspecific abnormal f inding of lung field J44.9 Chronic obstructive pulmonar y disease, unspecified Z87.891 Personal history of nicotine dependence Office Visit 12/01/2020 9:30a [facility] VIKTOR May J44.9 Chronic obstructive pulmonary disease, u nspecified R91.8 Other nonspecific abnormal f inding of lung field F17.218 Nicotine dependence, cigaret yvette, w oth disorders Assessments Date Code Description Provider 05/19/2021 J43.1 Panlobular emphysema Rboerto coronado, PA 05/19/2021 R91.8 Other nonspecific abnormal findi ng of lung field Roberto Ruelas, PA 05/19/2021 F17.218 Nicotine dependence, cigarettes, with other nicotine-induced disorders Roberto Ruelas, PA 03/05/2021 R09.1 Pleurisy Roberto Ruelas, PA 03/05/2021 J44.9 Chronic obstructive pulmonary di sease, unspecified Roberto Ruelas, PA 03/05/2021 F17.218 Nicotine dependence, cigarettes, with other nicotine-induced disorders Roberto Ruelas PA 03/03/2021 J44.9 Chronic obstructive pulmonary di sease, unspecified Roberto Ruelas, PA 03/03/2021 R91.8 Other nonspecific abnormal findi ng of lung field Roberto Ruelas, PA 01/26/2021 R09.1 Pleurisy Roberto Ruelas, PA 01/26/2021 R91.8 Other nonspecific abnormal findi ng of lung field RobertoVIKTOR Marmolejo 01/26/2021 J44.9 Chronic obstructive pulmonary di sease, unspecified VIKTOR May 01/26/2021 Z87.891 Personal history of nicotine dep endence VIKTOR May 12/01/2020 J44.9 Chronic obstructive pulmonary di sease, unspecified VIKTOR May 12/01/2020 R91.8 Other nonspecific abnormal findi ng of lung field VIKTOR May 12/01/2020 F17.218 Nicotine dependence, cigarettes, with other nicotine-induced disorders VIKTOR May Plan of Treatment Future Appointment(s):* 11/25/2021 9:30 am - VIKTOR May at [facility] * 08/19/2021 9:00 am - VIKTOR May at [facility] 05/19/2021 - VIKTOR May* J43.1 Panlobular [...] Description No Information Available Referrals Refer to Reason for Referral Status Appt Date Radiology/Procedure 49181 Closed Dorian Arellano D.O. COPD/ABN FINDING LUNG FIELD Scheduled 03/03/2021 [facility] [address] [place], [place] [address] [phone]
--- OUTSIDE RECORDS SUMMARY | 2021-08-14 09:07 | CCD ---
Author Author [facility] Organization [facility] Address Unknown Phone Unavailable Care Team Providers Care Alarm Installation Technician Name Role Phone Cunningham, Juanita GAMING PIT BOSS Unavailable Unavailable Cunningham, Juanita GAMING PIT BOSS Unavailable Unavailable Cunningham, Juanita GAMING PIT BOSS Unavailable Unavailable Cunningham, Juanita GAMING PIT BOSS Unavailable Unavailable Cunningham, Juanita GAMING PIT BOSS Unavailable Unavailable Cunningham, Juanita GAMING PIT BOSS Unavailable Unavailable Cunningham, Juanita GAMING PIT BOSS Unavailable Unavailable Cunningham, Juanita GAMING PIT BOSS Unavailable Unavailable Cunningham, Juanita GAMING PIT BOSS Unavailable Unavailable Cunningham, Juanita GAMING PIT BOSS Unavailable Unavailable Cunningham, Juanita GAMING PIT BOSS Unavailable Unavailable Cunningham, Juanita GAMING PIT BOSS Unavailable Unavailable Cunningham, Juanita GAMING PIT BOSS Unavailable Unavailable Michelle Ann Unavailable Unavailable Michelle Ann Unavailable Unavailable Michelle Ann Unavailable Unavailable Michelle Ann Unavailable Unavailable Michelle Ann Unavailable Unavailable Michelle Ann Unavailable Unavailable Michelle Ann Unavailable Unavailable Ann, Michelle Elo PA Unavailable Unavailable Ann, Michelle Elo PA Unavailable Unavailable Ann, Michelle Elo PA Unavailable Unavailable RING, K PALAK PA Unavailable Unavailable RING, K PALAK PA Unavailable Unavailable RING, K PALAK PA Unavailable Unavailable RING, K PALAK PA Unavailable Unavailable RING, K PALAK PA Unavailable Unavailable RING, K PALAK PA Unavailable Unavailable RING, K PALAK PA Unavailable Unavailable RING, K PALAK PA Unavailable Unavailable RING, K PALAK PA Unavailable Unavailable RING, K PALAK PA Unavailable Unavailable RING, K PALAK PA Unavailable Unavailable RING, K PALAK PA Unavailable Unavailable RING, K PALAK PA Unavailable Unavailable RING, K PALAK PA Unavailable Unavailable RING, K PALAK PA Unavailable Unavailable RING, K PALAK PA Unavailable Unavailable RING, K PALAK PA Unavailable Unavailable RING, K PALAK PA Unavailable Unavailable RING, K PALAK PA Unavailable Unavailable RING, K PALAK PA Unavailable Unavailable RING, K PALAK PA Unavailable Unavailable AVERY, M NAOMIE PA Unavailable Unavailable AVERY, M NAOMIE PA Unavailable Unavailable AVERY, M NAOMIE PA Unavailable Unavailable AVERY, M NAOMIE PA Unavailable Unavailable AVERY, M NAOMIE PA Unavailable Unavailable AVERY, M NAOMIE PA Unavailable Unavailable AVERY, M NAOMIE PA Unavailable Unavailable AVERY, M NAOMIE PA Unavailable Unavailable AVERY, M NAOMIE PA Unavailable Unavailable AVERY, M NAOMIE PA Unavailable Unavailable AVERY, M NAOMIE PA Unavailable Unavailable AVERY, M NAOMIE PA Unavailable Unavailable AVERY, M NAOMIE PA Unavailable Unavailable AVERY, M NAOMIE PA Unavailable Unavailable AVERY, M NAOMIE PA Unavailable Unavailable AVERY, M NAOMIE PA Unavailable Unavailable AVERY, M NAOMIE PA Unavailable Unavailable AVERY, M NAOMIE PA Unavailable Unavailable AVERY, M NAOMIE PA Unavailable Unavailable AVERY, M NAOMIE PA Unavailable Unavailable AVERY, M NAOMIE PA Unavailable Unavailable AVERY, M NAOMIE PA Unavailable Unavailable AVERY, M NAOMIE PA Unavailable Unavailable AVERY, M NAOMIE PA Unavailable Unavailable AVERY, M NAOMIE PA Unavailable Unavailable AVERY, M NAOMIE PA Unavailable Unavailable AVERY, M NAOMIE PA Unavailable Unavailable AVERY, M NAOMIE PA Unavailable Unavailable AVERY, M NAOMIE PA Unavailable Unavailable AVERY, M NAOMIE PA Unavailable Unavailable AVERY, M NAOMIE PA Unavailable Unavailable AVERY, M NAOMIE PA Unavailable Unavailable AVERYJabier Unavailable Unavailable AVERYJabier Unavailable Unavailable AVERY, Jabier HOANG Unavailable Unavailable Re-disclosure Warning The records that you are about to access may contain information from federally-assisted alcohol or drug abuse programs. If such information is present, then the following federally mandated warning applies: This information has been disclosed to you from records protected by federal confidentiality rules (42 CFR part 2). The federal rules prohibit you from making any further disclosure of this information unless further disclosure is expressly permitted by the written consent of the person to whom it pertains or as otherwise permitted by 42 CFR part 2. A general authorization for the release of medical or other information is NOT sufficient for this purpose. The Federal rules restrict any use of the information to criminally investigate or prosecute any alcohol or drug abuse patient.The records that you are about to access may contain highly sensitive health information, the redisclosure of which is protected by Article 27-F of the [facility] Public Health law. If you continue you may have access to information: Regarding HIV / AIDS; Provided by facilities licensed or operated by the [facility] Office of Mental Health; or Provided by the [facility] Office for People With Developmental Disabilities. If such information is present, then the following [facility] mandated warning applies: This information has been disclosed to you from confidential records which are protected by state law. State law prohibits you from making any further disclosure of this information without the specific written consent of the person to whom it pertains, or as otherwise permitted by law. Any unauthorized further disclosure in violation of state law may result in a fine or detention sentence or both. A general authorization for the release of medical or other information is NOT sufficient authorization for further disc losure. Family History Family Member Name Family Member Gender Family Member Status Date o f Status Description Data Source(s) Unknown Unknown Problem [facility] ([facility]) Unknown Unknown Problem [facility] ([facility] Encounters Encounter Providers Location Date Indications Data Source(s ) Outpatient Attender: NAOMIE Maddox/Coy/Keon/Nanci dl 05/19/2021 03:30:00 PM EDT [facility] ([facility]) Outpatient Attender: NAOMIE AVERY PA Tan/Majestic/Keon/Rein dl 03/05/2021 02:30:00 PM EDT [facility] Outpatient Attender: NAOMIE HOANG Tan/Majestic/Keon/Rein dl 01/26/2021 01:30:00 PM EDT [facility] ([facility], ) Outpatient Attender: PALAK Martínez Primary 01/13/2021 10:45:00 AM EDT [facility] ([facility]) Outpatient Attender: NAOMIE Maddox/Majestic/Keon/Rein dl 12/01/2020 08:30:00 AM EST [facility] Outpatient Attender: Juanita fowler 10/18/2020 07:40:00 AM EST [facility] ([facility] Outpatient Attender: Elo Martínez Prim rafa 10/06/2020 07:15:00 AM EST [facility] ([facility], [facility]) Immunizations Vaccine Date Status Description Data Source(s) COVID-19 VACCINE Moderna 02/24/2021 12:00:00 AM EDT completed [facility] Vaccine Series Complete: YESThis Data wa s Submitted to [facility] Via [employer]. COVID-19 VACCINE Moderna 01/12/2021 12:00:00 AM EDT completed [facility] Vaccine Series Complete: NOThis Data was Submitted to [facility] Via [employer]. TB Skin test is not vaccine. 09/23/2020 03:43:00 PM EST completed [facility] ([facility], [facility]) Influenza Virus Vaccine, Quadrivalent (Cciiv4), Derive d From Cell 09/22/2020 11:00:00 PM EST completed [facility] ([facility], [facility]) Medications Medication Brand Name Start Date Product Form Dose Route Admi nistrative Instructions Pharmacy Instructions Status Indications Reaction Description Data Source(s) Trelegy Ellipta Trelegy Ellipta 05/19/2021 12:00:00 AM EDT ORAL active [facility] ([facility], ) Fluticasone Propionate/Salmeterol Fluticasone Propionate/Michele meterol 05/04/2021 12:00:00 AM EDT RESPIRATORY completed [facility] ([facility], ) Covid-19 vaccine, Unspecified 02/24/2021 12:00:00 AM EDT completed [facility] ([facility]) Medication administered onsite Prednisone 10 MG Oral Tablet Prednisone 01/26/2021 12:00:00 AM EDT completed [facility] ([facility]) cefdinir 300 MG Oral Capsule Cefdinir 01/26/2021 12:00:00 AM EDT ORAL completed [facility] ([facility]) Cyclobenzaprine hydrochloride 10 MG Oral Tablet Cyclobenzapr ine HCL 01/13/2021 12:00:00 AM EDT ORAL active M [facility] ([facility]) Covid-19 vaccine, Unspecified 01/12/2021 12:00:00 AM EDT completed [facility] ([facility]) Medication administered onsite Nystatin 194512 UNT/ML Oral Suspension Nystatin 12/16/2020 12:00:00 AM EST completed [facility] ([facility], ) Azithromycin 250 MG Oral Tablet Azithromycin 12/16/2020 12:00:[address] ORAL completed [facility] ([facility]) Prednisone 10 MG Oral Tablet Prednisone 12/16/2020 12:00:00 AM EST ORAL completed [facility] ([facility]) Doxycycline Monohydrate 100 MG Oral Capsule Doxycycline [place] hydrate 10/18/2020 12:00:00 AM EST ORAL completed [facility] ([facility]) Prednisone 20 MG Oral Tablet Prednisone 10/18/2020 12:00:00 AM EST completed [facility] ([facility]) Prednisone 20 MG Oral Tablet Prednisone 10/06/2020 12:00:00 AM EST completed [facility] ([facility]) 200 ACTUAT Albuterol 0.09 MG/ACTUAT Metered Dose Inhaler [Pr oAir] Proair HFA 04/09/2020 12:00:00 AM EDT RESPIRATORY completed [facility] ([facility]) Amoxicillin 875 MG / Clavulanate 125 MG Oral Tablet Am oxicillin/Clavulanate Potassium 04/09/2020 12:00:00 AM EDT ORAL completed [facility] ([facility], [facility]) Prednisone 20 MG Oral Tablet Prednisone 04/09/2020 12:00:00 AM EDT completed [facility] ([facility], [facility]) Insurance Providers Payer name Policy type / Coverage type Policy ID Covered democrat ID Covered democrat's relationship to hernández Policy Hernández Plan Information [employer]ILY [employer] PLUS [id number] SP [id number] [employer] PLUS [id number] SP [id number] EXCELLUS I [id number] Self [id number] [facility] I [id number] Self [id number] MEDICAID [id number] SP [id number] MEDICAID [id number] SP [id number] [place] [id number] Self [id number] [place] [id number] Self [id number] MEDICAID [id number] SP [id number] [facility] XIX -O [id number] [id number] [facility] Health Maintenance Organization (HMO) [id number] Self [id number] [facility] O [id number] S [id number] [facility] Community Plan Medigap Part B [id number] Self BC/BS Of [place] Commercial [id number] Self UNHC AMERICHOICE XIX -HMO UNAVAILABLE UNAVAILABLE MEDICAID-O/P [id number] 18 [id number] C EMPIRE BLUE CROSS BLUE SHIELD-PHYSICIAN [id number] 18 [id number] BLUE CROSS BLUE SHIELD-O/P [id number] 18 [id number] Managed Care BCBS P [id number] S [id number] Medicaid S [id number] S [id number] EXCELLUS BCBS P [id number] S [id number] BLUE CROSS [place] PLAN [id number] SP [id number] BLUE CROSS [place]RE[employer] PLAN [id number] SP [id number] HMO BLUE [id number] SP [id number] VALUE OPTIONS (FHP) [id number] SP [id number] VALUE OPTIONS INPATIENT CLAIMS [id number] SP [id number] BLUE CROSS BLUE SHIELD-CLINIC [id number] 18 [id number] MEDICAID - CLINIC [id number] UNHC COMMUNITY PLAN MCDHMO [id number] SP [id number] MVP MCDHMO [id number] SP [id number] UNHC COMMUNITY PLAN MCDHMO [id number] SP [id number] MVP MCDHMO [id number] SP [id number] MVP MCDHMO [id number] SP [id number] SELF PAY ONLY [id number] SP [id number] Problems, Conditions, and Diagnoses No Information Surgeries/Procedures Procedure Description Date Indications Data Source(s) OFFICE OUTPATIENT VISIT 25 MINUTES 05/19/2021 12:00:00 AM EDT [facility] ([facility]) TOBACCO USE CESSATION INTERMEDIATE 3-10 MINUTES 2020 12:00:00 AM EDT [facility] ([facility]) Spirometry 03/05/2021 12:00:00 AM EDT M [facility] ([facility]) OFFICE OUTPATIENT VISIT 25 MINUTES 03/05/2021 12:00:00 AM EDT [facility] ([facility]) Spirometry 01/26/2021 12:00:00 AM EDT M [facility] ([facility]) OFFICE OUTPATIENT VISIT 25 MINUTES 01/26/2021 12:00:00 AM EDT [facility] ([facility]) Therapeutic, Prophylactic Or Diagnostic Injection Subq/Im 01/13/2021 12:00:00 AM EDT [facility] ([facility]) Spirometry 12/01/2020 12:00:00 AM EST [facility] ([facility]) OFFICE OUTPATIENT VISIT 25 MINUTES 12/01/2020 12:00:00 AM EST [facility] ([facility]) TOBACCO USE CESSATION INTERMEDIATE 3-10 MINUTES 2020 12:00:00 AM EST [facility] ([facility]) Results ID Date Data Source [id number] 03/05/2021 03:01:00 PM EDT [facility] ([facility]) Name Value Range Interpretation Code Description Data Kimberlee rce(s) Supporting Document(s) Erythrocyte sedimentation rate by Westergren method 37 mm/hr 0-30 Above high normal [facility] ([facility]) ID Date Data Source [id number] 03/05/2021 03:01:00 PM [facility] ([facility]) Name Value Range Interpretation Code Description Data Kimberlee rce(s) Supporting Document(s) Perinuclear AB Anca-P Laboratory test result Nor mal (applies to non-numeric results) [facility] ([facility]) The presence of positive fluorescence ex hibiting P-ANCA or C-ANCA patterns alone is not specific for the diagnosis of Khadijah's Granulomatosis (WG) or microscopic polyangiitis. Decisions about treatment should not be based solely on ANCA IFA results. The International ANCA Group Consensus recommends follow up testing of positive sera with both ME- 3 and MPO-ANCA enzyme immunoassays. As m any as 5% serum samples are positive only by EIA. Ref. AM J Clin Pathol 1999;111:507-513. Cytoplasmic Neutrop AB Anca-C Laboratory test result Normal (applies to non- numeric results) [facility] ([facility]) Anca-Atypical Laboratory test result Normal (applies t o non-numeric results) [facility]) The atypical pANCA pattern has been obse rved in a significant percentage of patients with ulcerative colitis, primary sclerosing cholangitis and autoimmune hepatitis. ID Date Data Source [id number] 03/05/2021 03:01:00 PM EDT [facility] ([facility]) Name Value Range Interpretation Code Description Data Kimberlee rce(s) Supporting Document(s) Laboratory test finding (navigational concept) Laboratory test r esult Normal (applies to non-numeric results) [facility] ([facility]) Performed at: - [facility] [id number] Toolroom Machinist: Carlos Live MD, Phone: [phone] Performed at: - [facility] [address] [id number] Toolroom Machinist: Princess Ballard MD, Phone: [phone] ID Date Data Source [id number] 03/05/2021 03:01:00 PM EDT [facility] ([facility]) Name Value Range Interpretation Code Description Data Kimberlee rce(s) Supporting Document(s) Antinuclear Antibodies Direct Laboratory test result Normal (applies to non- numeric results) [facility] ([facility]) MOVING PICTURE PRODUCER Antibodies Laboratory test result 0.0-0.9 Normal (a pplies to non-numeric results) [facility] ([facility]) Young Antibodies Laboratory test result 0.0-0.9 Normal ( applies to non-numeric results) [facility] ([facility]) Sjogren's Anti SS-A Laboratory test result 0.0-0.9 Erin l (applies to non- numeric results) [facility] ([facility]) Sjogren's Anti SS-B Laboratory test result 0.0-0.9 Erin l (applies to non- numeric results) [facility] ([facility]) ID Date Data Source [id number] 03/05/2021 02:25:00 PM EDT [facility] ([facility]) Name Value Range Interpretation Code Description Data Kimberlee rce(s) Supporting Document(s) PDFReport Laboratory test result [facility] ([facility]) FVC-Pred 4.13 L [facility] ([facility]) FVC-Pre 2.59 L [facility] ([facility]) FVC-%Pred-Pre 62 L [facility] ([facility]) FVC-LLN 3.33 L [facility] ([facility]) Fev1-Pred 3.25 L [facility] ([facility]) Fev1-Pre 2.12 L [facility] ([facility], ) Fev1-LLN 2.57 L [facility] ([facility]) Fev6-Pred 4.02 L [facility] ([facility]) Fev1-%Pred-Pre 65 L [facility] ([facility], ) Fev6-Pre 2.59 L [facility] ([facility], ) Fev6-%Pred-Pre 64 L [facility] ([facility], ) Fev6-LLN 3.23 L [facility] ([facility]) Vbj9jlb-Clg 82 % [facility] ([facility]) Hbo9tzu-Tcpf 80 % [facility] ([facility]) Ick0yyi-Mvgi 97 % [facility] ([facility]) Koj2eob-OSA 70 % [facility] ([facility]) Hjv5jgm-%Pred-Pre 102 % [facility] ([facility]) Tid0msa-%Pred-Pre 102 % [facility] ([facility]) Mjp8rvh-Zus 100 % [facility] ([facility]) FEFMax-Pred 7.46 L/E/sec [facility] ([facility]) FEFMax-%Pred-Pre 70 L/E/sec [facility] ([facility]) FEFMax-Pre 5.28 L/E/sec [facility] ([facility]) Eac5476-Eqcn 2.98 L/E/sec [facility] ([facility]) FEFMax-LLN 5.47 L/E/sec [facility] ([facility]) Nkn9273-Pit 2.09 L/E/sec [facility] ([facility]) Tce4490-SLN 1.54 L/E/sec [facility] ([facility]) ExpTime-Pre 4.39 sec [facility] ([facility]) Psz1498-%Pred-Pre 70 L/E/sec [facility] ([facility]) Sbi1uut9-Ndg 82 % [facility] ([facility]) Gbk1bva8-Gjoe 82 % [facility] ([facility]) Knj5wwh6-XAF 73 % [facility] ([facility]) Ims1vbg3-%Pred-Pre 100 % [facility] ([facility]) ID Date Data Source [id number] 01/26/2021 01:28:00 PM EDT [facility] ([facility]) Name Value Range Interpretation Code Description Data Kimberlee rce(s) Supporting Document(s) PDFReport Laboratory test result [facility] ([facility]) FVC-Pred 4.13 L [facility] ([facility]) FVC-Pre 2.32 L [facility] ([facility]) FVC-%Pred-Pre 56 L [facility] ([facility]) FVC-LLN 3.33 L [facility] ([facility]) Fev1-Pre 1.75 L [facility] ([facility]) Fev1-%Pred-Pre 53 L [facility] ([facility]) Fev1-Pred 3.25 L [facility] ([facility]) Fev1-LLN 2.57 L [facility] ([facility]) Fev6-Pre 2.32 L [facility] ([facility]) Fev6-Pred 4.02 L [facility] ([facility]) Fev6-%Pred-Pre 57 L [facility] ([facility]) Awe3hno-Duyj 80 % [facility] ([facility]) Fev6-LLN 3.23 L [facility] ([facility]) Qto6sjq-%Pred-Pre 94 % [facility] ([facility]) Sqa4ayf-Dtt 76 % [facility] ([facility]) Hvp4pxh-Lqee 97 % [facility] ([facility]) Jpz0ycj-BQN 70 % [facility] ([facility]) Yce0vyf-Bfg 100 % [facility] ([facility]) FEFMax-Pre 2.46 L/E/sec [facility] ([facility]) Vir0dym-%Pred-Pre 102 % [facility] ([facility]) FEFMax-Pred 7.46 L/E/sec [facility] ([facility]) FEFMax-LLN 5.47 L/E/sec [facility] ([facility]) FEFMax-%Pred-Pre 32 L/E/sec [facility] ([facility]) Lne7928-%Pred-Pre 51 L/E/sec [facility] ([facility]) Hlv1092-Jji 1.53 L/E/sec [facility] ([facility]) Wus2299-Pdfe 2.98 L/E/sec [facility] ([facility]) ExpTime-Pre 4.01 sec [facility] ([facility]) Kie1dil9-Tdzd 82 % [facility] ([facility]) Ugp3862-PGY 1.54 L/E/sec [facility] ([facility]) Tzb8dpc4-Ewi 76 % [facility] ([facility]) Kjv5sue3-%Pred-Pre 92 % [facility] ([facility]) Amf3bui2-VYD 73 % [facility] ([facility]) ID Date Data Source [id number] 01/13/2021 03:23:00 PM EDT [facility] ([facility]) Name Value Range Interpretation Code Description Data Kimberlee rce(s) Supporting Document(s) Appearance, Urine Laboratory test result Normal (applies to non-numeric results) [facility] ([facility]) Color, Urine Laboratory test result Normal (applies to non -numeric results) [facility] ([facility]) PH,Urine 5.0 units 5.0-9.0 Normal (applies to non-numeric resul ts) [facility] ([facility]) Protein, Urine Auto Laboratory test result Above high norm al [facility] ([facility]) Specific [place] Urine Auto 1.035 1.002-1.035 Norm al (applies to non-numeric results) [facility] ([facility]) Glucose, Urine (Ua) Auto Laboratory test result Normal (applies to non-numeric results) [facility] ([facility]) Ketone, Urine Auto Laboratory test result Above high erin l [facility] ([facility]) Nitrite, Urine Auto Laboratory test result Erin l (applies to non-numeric results) [facility] ([facility]) Bilirubin, Urine Auto Laboratory test result Above high no rmal [facility] ([facility]) Urobilinogen, Urine Auto 4.0 mg/dL 0.0-2.0 Above high normal [facility] Blood, Urine Blood Laboratory test result Normal (applies to non-numeric results) [facility] ([facility]) Leukocyte Esterase, Urine Auto Laboratory test result Normal (applies to non- numeric results) [facility] ([facility]) RBC, Urine Auto 19 /HPF 0-3 Above high normal [facility] ([facility]) WBC, Urine Auto 5 /HPF 0-3 Above high normal [facility] ([facility]) Squamous Epithelial Cell Ur AU 10 /HPF 0-6 N ormal (applies to non-numeric results) [facility] ([facility]) Bacteria, Urine Auto Laboratory test result Norm al (applies to non-numeric results) [facility] ([facility]) Mucus, Urine Laboratory test result Normal (applies to non -numeric results) [facility] ([facility]) Hyaline Cast, Urine Auto 1 /LPF 0-1 Normal (applies to non -numeric results) [facility] ([facility]) ID Date Data Source [id number] 01/13/2021 03:23:00 PM EDT [facility] ([facility]) Name Value Range Interpretation Code Description Data Kimberlee rce(s) Supporting Document(s) Amphetamines Level Urine Laboratory test result Normal (applies to non-numeric results) [facility] ([facility]) Benzodiazepines Urine Laboratory test result Above high no rmal [facility] ([facility]) Barbiturates Urine Laboratory test result Normal (applies to non-numeric results) [facility] ([facility]) Cocaine Metabolite Urine Laboratory test result Normal (applies to non-numeric results) [facility] ([facility]) Cannabinoids Urine Laboratory test result Normal (applies to non-numeric results) [facility] ([facility]) Methadone Urine Laboratory test result Normal (a pplies to non-numeric results) [facility] ([facility]) Opiates Urine Laboratory test result Normal (applies t o non-numeric results) [facility] ([facility]) Phencyclidine Urine Laboratory test result Erin l (applies to non-numeric results) [facility] ([facility]) ALL PRESUMPTIVE POSITIVE FINDINGS AR E UNCONFIRMED THRESHOLD IN NG/ML AMPHETAMINES/METHAMPHET 1000 BARBITURATES [...] CLOSELY RELATED COMPOUNDS PLEASE CALL THE LAB. ID Date Data Source [id number] 01/13/2021 02:32:00 PM EDT [facility] ([facility]) Name Value Range Interpretation Code Description Data Kimberlee rce(s) Supporting Document(s) iSTAT Glucose 100 mg/dL 70-105 Normal (applies to non-numeric re sults) [facility] ([facility]) iSTAT Sodium 136 meq/L 136-145 Normal (applies to non-numeric res ults) [facility] ([facility]) iSTAT HCT 37.0 % 38.0-51.0 Below low normal [facility] iSTAT CA++ 3.8 mg/dL 4.5-5.3 Below low normal [facility] ( [facility]) Laboratory test finding (navigational concept) 97 meq/L 98-109 Below low normal [facility] ([facility]) iSTAT Potassium 4.6 meq/L 3.5-5.1 Normal (applies to non-numeric results) [facility] ([facility]) Laboratory test finding (navigational concept) 31.0 MM/L 2 3.0-27.0 Above high normal [facility] ([facility]) Laboratory test finding (navigational concept) 7 mg/dL 8-26 Below low normal [facility] ([facility]) Laboratory test finding (navigational concept) 0.8 mg/dL 0 .6-1.3 Normal (applies to non-numeric results) [facility] ([facility]) ID Date Data Source [id number] 01/13/2021 02:17:00 PM EDT [facility] ([facility]) Name Value Range Interpretation Code Description Data Kimberlee rce(s) Supporting Document(s) Platelets [#/volume] in Blood by Estimate Laboratory test result Normal (applies to non-numeric results) [facility] ([facility]) ID Date Data Source [id number] 01/13/2021 02:17:00 PM EDT [facility] ([facility]) Name Value Range Interpretation Code Description Data Kimberlee rce(s) Supporting Document(s) Neutrophils 63 % 28-66 Normal (applies to non-numeric resu lts) [facility] ([facility]) Bands 1 % Normal (applies to non-numeric resul ts) [facility] ([facility]) Monocytes 10 % 0-5 Above high normal [facility] ([facility]) Eosinophils 6 % 0-3 Above high normal [facility] ([facility]) Lymphocytes 18 % 16-44 Normal (applies to non-numeric resu lts) [facility] ([facility]) Atypical Lymph 1 % 0-5 Normal (applies to non-numeric r esults) [facility] ([facility]) Basophils 1 % 0-1 Normal (applies to non-numeric resul ts) [facility] ([facility]) ID Date Data Source [id number] 01/13/2021 02:17:00 PM EDT [facility] ([facility]) Name Value Range Interpretation Code Description Data Kimberlee rce(s) Supporting Document(s) Red Blood Count 3.81 10 4.00-5.40 Below low normal [facility] ([facility]) White Blood Count 4.6 10 4.0-10.0 Normal (applies to non-numeri c results) [facility] ([facility]) Hemoglobin 12.1 g/dL 12.0-15.5 Normal (applies to non-numeric resul ts) [facility]) Hematocrit 37.5 % 36.0-47.0 Normal (applies to non-numeric resul ts) [facility]) Mean Corpuscular Hemoglobin 31.8 pg 27.0-33.0 Norm al (applies to non-numeric results) [facility]) Mean Corpuscular HGB Conc 32.3 g/dL 32.0-36.5 Normal (applies to non-numeric results) [facility]) Mean Corpuscular Volume 98.4 fl 80.0-96.0 Above high normal [facility] ([facility]) Red Cell Distribution Width 15.5 % 11.5-14.5 Above high normal [facility] ([facility]) Platelet Count, Automated 192 10 150-450 Normal (applies to non-numeric results) [facility]) Nucleated Red Blood Cell % 0.0 % 0-0 Normal (applies to n on-numeric results) [facility]) ID Date Data Source [id number] 01/13/2021 02:17:00 PM EDT [facility]) Name Value Range Interpretation Code Description Data Kimberlee rce(s) Supporting Document(s) Lipoprotein lipase [Enzymatic activity/volume] in Serum or Plasm a 96 U/L 73-393 Normal (applies to non-numeric results) [facility] ([facility]) Ethanol [Mass/volume] in Serum or Plasma Laboratory test result 0.000-0.010 Normal (applies to non-numeric results) [facility]) ID Date Data Source [id number] 01/13/2021 02:17:00 PM EDT [facility] ([facility]) Name Value Range Interpretation Code Description Data Kimberlee rce(s) Supporting Document(s) Ast/Sgot 22 U/L 7-37 Normal (applies to non-numeric resul ts) [facility] ([facility], ) Alkaline Phosphatase 88 U/L 45-117 Normal (applies to non-num jorge results) [facility] ([facility]) Alt/SGPT 12 U/L 12-78 Normal (applies to non-numeric resul ts) [facility] ([facility]) Bilirubin,Direct 0.1 mg/dL 0.0-0.2 Normal (applies to non-numeric results) [facility]) Bilirubin,Total 0.3 mg/dL 0.2-1.0 Normal (applies to non-numeric results) [facility]) Albumin/Globulin Ratio 0.9 1.2-2.2 Below low normal [facility] ([facility]) Albumin 3.1 GM/DL 3.2-5.2 Below low normal [facility] ( [facility]) Total Protein 6.5 GM/DL 6.4-8.2 Normal (applies to non-numeric re sults) [facility] ([facility]) ID Date Data Source [id number] [facility]21 [facility] Name Value Range Interpretation Code Description Data Kimberlee rce(s) Supporting Document(s) CPK Creatine Phosphokinase 84 U/L 26-192 Erin l (applies to non-numeric results) [facility] ([facility]) CK-MB Value Mass Laboratory test result Normal ( applies to non-numeric results) [facility] ([facility]) MB/CK Relative Index 1.19 Normal (applies to non-num jorge results) [facility]) <content>DIAGNOSIS CRITERIA</content>
<content>MMB ng/ml Relative Index (RI)</content>
<content>NON-AMI < or = 5 N/A</content>
<content>GOLDSTEIN ZONE > 5 < or = 4</content>
<content>AMI > 5 > 4</content>
<content></content> Troponin I Laboratory test result Normal (applies to non-n umeric results) [facility] ([facility], ) <content>Troponin I Reference Interval f or Siemens Evans LOCI:</content>
<content></content>
<content>99th Percentile= 0.00-0.045 ng/ml</content>
<content></content>
<content>Risk Stratification:</content>
<content><= 0.10 ng/ml Decreased Risk for Adverse Clinical</content>
<content>Events.</content>
<content>0.10-1.50 ng/ml Increased Risk for Adverse Clinical</content>
<content>Events. Evaluation of additional</content>
<content>criterion and/or repeat testing in 2-6</content>
<content>hours is suggested to rule out myocardial</content>
<content>damage.</content>
<content>>= 1.50 ng/ml Indicative of Myocardial Injury.</content>
<content></content> ID Date Data Source [id number] 01/13/2021 02:17:00 PM EDT [facility] ([facility]) Name Value Range Interpretation Code Description Data Kimberlee rce(s) Supporting Document(s) Prothrombin Time 12.2 s 12.5-14.3 Normal (applies to non-numeric results) [facility] ([facility], ) Inr 0.89 Normal (applies to non-numeric resul ts) [facility]) THERAPUTIC HUMAN INR VALUES INDICATIONS NORMAL RANGES PROPHYLAXIS/TREATMENT OF: VENOUS THROMBOSIS 2.0-3.0 PULMONARY EMBOLISM 2.0-3.0 PREVENTION OF SYSTEMIC EMBOLISM FROM: TISSUE HEART VALVES 2.0-3.0 ACUTE MYOCARDIAL INFARCTION 2.0-3.0 VALVULAR HEART DISEASE 2.0-3.0 ATRIAL FIBRILLATION 2.0-3.0 MECHANICAL VALVES(HIGH RISK) 2.5-3.5 RECURRENT MYOCARDIAL INFARCTION 2.5-3.5 Partial Thromboplastin Time 38.9 s 24.2-38.5 Above high normal [facility] ([facility], ) ID Date Data Source [id number] 01/13/2021 11:25:00 AM EDT [facility] ([facility]) Name Value Range Interpretation Code Description Data Kimberlee rce(s) Supporting Document(s) White Blood Count 4.7 10 4.0-10.0 [facility] ([facility], [facility]) see note- pt sent to ED. Hemoglobin 13.1 g/dL 12.0-15.5 [facility] ([facility], [facility]) see note- pt sent to ED. Red Blood Count 4.24 10 4.00-5.40 [facility] ([facility], [facility]) see note- pt sent to ED. Mean Corpuscular Volume 99.1 fl 80.0-96.0 M [facility] ([facility], [facility]) see note- pt sent to ED. Hematocrit 42.0 % 36.0-47.0 [facility], [facility]) see note- pt sent to ED. Mean Corpuscular Hemoglobin 30.9 pg 27.0-33.0 [facility] ([facility]) see note- pt sent to ED. Red Cell Distribution Width 15.5 % 11.5-14.5 [facility] ([facility]) see note- pt sent to ED. Mean Corpuscular HGB Conc 31.2 g/dL 32.0-36.5 [facility] ([facility], [facility]) see note- pt sent to ED. Neutrophils % 56.9 % 36.0-66.0 [facility] ([facility], [facility]) see note- pt sent to ED. Platelet Count, Automated 202 10 150-450 [facility] ([facility]) see note- pt sent to ED. Lymph % 28.3 % 24.0-44.0 [facility] ([facility], [facility]) see note- pt sent to ED. Eos % 3.0 % 0.0-3.0 [facility] ([facility]) see note- pt sent to ED. Baso % 0.9 % 0.0-1.0 [facility] ([facility]) see note- pt sent to ED. [place] % 10.5 % 2.0-8.0 [facility] ([facility]) see note- pt sent to ED. Neutrophils # 2.7 10 1.5-8.5 [facility] ([facility]) see note- pt sent to ED. Immature Granulocyte % 0.4 % 0-3.0 [facility] ([facility]) see note- pt sent to ED. Nucleated Red Blood Cell % 0.0 % 0-0 MED [facility]NT ([facility]) see note- pt sent to ED. Eos # 0.1 10 0.0-0.5 [facility] ([facility]) see note- pt sent to ED. [place] # 0.5 10 0.0-0.8 [facility] ([facility]) see note- pt sent to ED. Lymph # 1.3 10 1.5-5.0 [facility] ([facility]) see note- pt sent to ED. Baso # 0.0 10 0.0-0.2 [facility] ([facility]) see note- pt sent to ED. ID Date Data Source [id number] 01/13/2021 11:25:00 AM EDT [facility] ([facility]) Name Value Range Interpretation Code Description Data Kimberlee rce(s) Supporting Document(s) Fibrin D-dimer FEU [Mass/volume] in Platelet poor plasma 856.09 ng/mL [facility] ([facility]) see note- pt sent to ED. ID Date Data Source [id number] 01/13/2021 12:00:00 AM EDT [facility] Name Value Range Interpretation Code Description Data Kimberlee rce(s) Supporting Document(s) SARS-CoV2 Rapid Antigen Negative [facility] This lab was reported by [facility]. ID Date Data Source [id number] 10/06/2020 12:00:00 AM EST [facility] Name Value Range Interpretation Code Description Data Kimberlee rce(s) Supporting Document(s) SARS coronavirus 2 Ag [facility] This lab was ordered by [facility] and reported by [facility]. Procedure Social History No Information Vital Signs ID Date Data Source UNK Name Value Range Interpretation Code Description Data Source(s) Body weight 168.00 [lb_av] 168.00 [lb_av] [facility] ([facility]) Heart rate 94 /min 94 /min [facility] ([facility]) Body mass index (BMI) [Ratio] 24.8 kg/m2 24.8 k g/m2 [facility] ([facility]) Oxygen saturation in Arterial blood by Pulse oximetry 93 % 93 % [facility] ([facility]) Body height 69 [in_i] 69 [in_i] [facility] ([facility]) 5'9" [place] body weight 145 [lb_av] 145 [lb_av] [facility] ([facility]) Systolic blood pressure 110 mm[Hg] 110 mm[Hg] [facility] ([facility]) Diastolic blood pressure 60 mm[Hg] 60 mm[Hg] [facility] ([facility]) Body weight 76.205 kg 76.205 kg [facility] ([facility]) Body surface area Derived from formula 1.92 m2 1.92 m2 [facility] ([facility]) Oxygen saturation in Arterial blood by Pulse oximetry 95 % 95 % [facility] ([facility]) Body height 69 [in_i] 69 [in_i] [facility] ([facility]) 5'9" Body weight 167.00 [lb_av] 167.00 [lb_av] [facility] ([facility]) Body mass index (BMI) [Ratio] 24.7 kg/m2 24.7 k g/m2 [facility] ([facility]) [place] body weight 145 [lb_av] 145 [lb_av] [facility] ([facility]) Body weight 75.751 kg 75.751 kg [facility] ([facility]) Body surface area Derived from formula 1.91 m2 1.91 m2 [facility] ([facility]) Oxygen saturation in Arterial blood by Pulse oximetry 95 % 95 % [facility] ([facility]) Body height 69 [in_i] 69 [in_i] [facility] ([facility]) 5'9" Body weight 167.00 [lb_av] 167.00 [lb_av] [facility] ([facility]) Body mass index (BMI) [Ratio] 24.7 kg/m2 24.7 k g/m2 [facility] ([facility]) [place] body weight 145 [lb_av] 145 [lb_av] [facility] ([facility]) Body weight 75.751 kg 75.751 kg [facility] ([facility]) Body surface area Derived from formula 1.91 m2 1.91 m2 [facility] ([facility]) Systolic blood pressure 122 mm[Hg] 122 mm[Hg] [facility] ([facility]) Diastolic blood pressure 80 mm[Hg] 80 mm[Hg] [facility] ([facility]) Heart rate 90 /min 90 /min [facility] ([facility]) Systolic blood pressure 114 mm[Hg] 114 mm[Hg] [facility] ([facility]) Diastolic blood pressure 68 mm[Hg] 68 mm[Hg] [facility] ([facility]) Heart rate 80 /min 80 /min [facility] ([facility]) Oxygen saturation in Arterial blood by Pulse oximetry 94 % 94 % [facility] ([facility]) Body height 69 [in_i] 69 [in_i] [facility] ([facility]) 5'9" Body weight 164.38 [lb_av] 164.38 [lb_av] [facility] ([facility]) Body mass index (BMI) [Ratio] 24.3 kg/m2 24.3 k g/m2 [facility] ([facility]) [place] body weight 145 [lb_av] 145 [lb_av] [facility] ([facility]) Body weight 74.561 kg 74.561 kg [facility] ([facility]) Body surface area Derived from formula 1.90 m2 1.90 m2 [facility] ([facility]) Systolic blood pressure 117 mm[Hg] 117 mm[Hg] M [facility]ENT ([facility], [facility]) Diastolic blood pressure 70 mm[Hg] 70 mm[Hg] [facility] ([facility], [facility]) Heart rate 89 /min 89 /min [facility] ([facility], [facility]) Respiratory rate 13 /min 13 /min [facility] ( [facility], [facility]) Oxygen saturation in Arterial blood by Pulse oximetry 96 % 96 % [facility] ([facility], [facility]) Body temperature 98.8 [degF] 98.8 [degF] [facility] ([facility], [facility]) Body weight 165.00 [lb_av] 165.00 [lb_av] [facility] ([facility], [facility]) Body height 69 [in_i] 69 [in_i] [facility] ([facility], [facility]) 5'9" Body mass index (BMI) [Ratio] 24.4 kg/m2 24.4 k g/m2 [facility] ([facility], [facility]) Systolic blood pressure 110 mm[Hg] 110 mm[Hg] [facility] Diastolic blood pressure 70 mm[Hg] 70 mm[Hg] [facility] ([facility]) Heart rate 97 /min 97 /min [facility] ([facility]) Oxygen saturation in Arterial blood by Pulse oximetry 92 % 92 % [facility] ([facility]) Body temperature 97.5 [degF] 97.5 [degF] [facility] ([facility]) Body height 69 [in_i] 69 [in_i] [facility] ([facility]) 5'9" Body weight 168.00 [lb_av] 168.00 [lb_av] [facility] ([facility]) Body mass index (BMI) [Ratio] 24.8 kg/m2 24.8 k g/m2 [facility] ([facility]) Body surface area Derived from formula 1.92 m2 1.92 m2 [facility] ([facility]) [place] body weight 145 [lb_av] 145 [lb_av] [facility] ([facility]) Body weight 76.205 kg 76.205 kg [facility] ([facility]) Body height 69 [in_i] 69 [in_i] [facility] ([facility], [facility]) 5'9" Systolic blood pressure 102 mm[Hg] 102 mm[Hg] [facility], [facility]) Diastolic blood pressure 70 mm[Hg] 70 mm[Hg] [facility] ([facility], [facility]) Heart rate 76 /min 76 /min [facility] ([facility], [facility]) Respiratory rate 15 /min 15 /min [facility] ( [facility], [facility]) Oxygen saturation in Arterial blood by Pulse oximetry 94 % 94 % [facility] ([facility], [facility]) Body temperature 98.8 [degF] 98.8 [degF] [facility] ([facility], [facility]) Body weight 160.00 [lb_av] 160.00 [lb_av] [facility] T ([facility], [facility]) Body mass index (BMI) [Ratio] 23.6 kg/m2 23.6 k g/m2 [facility] ([facility], [facility]) Body height 69 [in_i] 69 [in_i] [facility] ([facility], [facility]) 5'9" Body temperature 98.4 [degF] 98.4 [degF] [facility] ([facility], [facility]) Systolic blood pressure 120 mm[Hg] 120 mm[Hg] [facility], [facility]) Body mass index (BMI) [Ratio] 23.6 kg/m2 23.6 k g/m2 [facility] ([facility]) Diastolic blood pressure 76 mm[Hg] 76 mm[Hg] [facility] ([facility], [facility]) Heart rate 87 /min 87 /min [facility] ([facility], [facility]) Respiratory rate 16 /min 16 /min [facility] ( [facility], [facility]) Oxygen saturation in Arterial blood by Pulse oximetry 93 % 93 % [facility] ([facility]) Body weight 160.00 [lb_av] 160.00 [lb_av] [facility] T ([facility], [facility]) Systolic blood pressure 110 mm[Hg] 110 mm[Hg] [facility] ([facility]) Diastolic blood pressure 70 mm[Hg] 70 mm[Hg] [facility] ([facility]) Oxygen saturation in Arterial blood by Pulse oximetry 93 % 93 % [facility] ([facility]) Body temperature 96.4 [degF] 96.4 [degF] [facility] ([facility]) Body height 69 [in_i] 69 [in_i] [facility] ([facility]) 5'9" Heart rate 81 /min 81 /min [facility] ([facility]) Body weight 161.00 [lb_av] 161.00 [lb_av] [facility] Body mass index (BMI) [Ratio] 23.8 kg/m2 23.8 k g/m2 [facility] ([facility]) [place] body weight 145 [lb_av] 145 [lb_av] [facility] Body weight 73.030 kg 73.030 kg [facility] ([facility]) Body surface area Derived from formula 1.88 m2 1.88 m2 [facility] ([facility])
[2021-08-14] MEDS ORDERED: INCR1INH INH (09:08)
--- OUTSIDE RECORDS SUMMARY | 2021-08-14 10:09 | CCD ---
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 Name Role Phone Cunningham, Juanita APARTMENT MAINTENANCE Unavailable Unavailable Cunningham, Juanita APARTMENT MAINTENANCE Unavailable Unavailable Cunningham, Juanita APARTMENT MAINTENANCE Unavailable Unavailable Cunningham, Juanita APARTMENT MAINTENANCE Unavailable Unavailable Cunningham, Juanita APARTMENT MAINTENANCE Unavailable Unavailable Cunningham, Juanita APARTMENT MAINTENANCE Unavailable Unavailable Cunningham, Juanita APARTMENT MAINTENANCE Unavailable Unavailable Cunningham, Juanita APARTMENT MAINTENANCE Unavailable Unavailable Ucnningham, Juanita APARTMENT MAINTENANCE Unavailable Unavailable Cunningham, Juanita APARTMENT MAINTENANCE Unavailable Unavailable Cunningham, Juanita APARTMENT MAINTENANCE Unavailable Unavailable Cunningham, Juanita APARTMENT MAINTENANCE Unavailable Unavailable Cunningham, Juanita APARTMENT MAINTENANCE Unavailable Unavailable Michelle Ann Unavailable Unavailable Michelle [...] Unavailable AVERY, M NAOMIE PA Unavailable Unavailable VAERY, M NAOMIE PA Unavailable Unavailable AVERY, M [...] is protected by Article 27-F of the [facility] Public Health law. If you continue you may have access to information: Regarding HIV / AIDS; Provided by facilities licensed or operated by the [facility] Office of Mental Health; or Provided by the [facility] Office for People With Developmental Disabilities. If such information is present, then the following [facility] mandated warning applies: This information has been [...] law may result in a fine or skilled nursing sentence or both. A general authorization for the release of medical or other information is NOT sufficient authorization for further disc losure. Family History Family Member Name Family Member Gender Family Member Status Date o f Status Description Data Source(s) Unknown Unknown Problem [facility] ([facility]) Unknown Unknown Problem [facility] ([facility] Encounters Encounter Providers Location Date Indications Data Source(s ) Outpatient Attender: NAOMIE Maddox/Coy/Keon/Nanci dl 05/19/2021 03:30:00 PM EDT [facility] ([facility]) Outpatient Attender: NAOMIE AVERY PA Tan/Lindsborg/Keon/Rein dl 03/05/2021 02:30:00 PM EDT [facility] ([facility] Outpatient Attender: NAOMIE HOANG Tan/Lindsborg/Keon/Rein dl 01/26/2021 01:30:00 PM EDT [facility] ([facility], ) Outpatient Attender: PALAK Martínez Primary 01/13/2021 10:45:00 AM EDT [facility] ([facility]) Outpatient Attender: NAOMIE Maddox/Lindsborg/Keon/Rein dl 12/01/2020 08:30:00 AM EST [facility] ([facility] Outpatient Attender: Juanita fowler 10/18/2020 07:40:00 AM EST [facility] ([facility] Outpatient Attender: Elo Martínez Prim rafa 10/06/2020 07:15:00 AM EST [facility] ([facility], [facility]) Immunizations Vaccine Date Status Description Data Source(s) COVID-19 VACCINE Moderna 02/24/2021 12:00:00 AM EDT completed [facility] Vaccine Series Complete: YESThis Data wa s Submitted to [facility] Via [employer]. COVID-19 VACCINE Moderna 01/12/2021 12:00:00 AM EDT completed [facility] Vaccine Series Complete: NOThis Data was Submitted to [facility] Via [employer]. TB Skin test is not vaccine. 09/23/2020 03:43:00 PM EST completed [facility] ([facility], [facility]) Influenza Virus Vaccine, Quadrivalent (Cciiv4), Derive d From Cell 09/22/2020 11:00:00 PM EST completed [facility] ([facility]) Medications Medication Brand Name Start Date Product Form Dose Route Admi nistrative Instructions Pharmacy Instructions Status Indications Reaction Description Data Source(s) Trelegy Ellipta Trelegy Ellipta 05/19/2021 12:00:00 AM EDT ORAL active [facility] ([facility], ) Fluticasone Propionate/Salmeterol Fluticasone Propionate/Michele meterol 05/04/2021 12:00:00 AM EDT RESPIRATORY completed [facility] ([facility], ) Covid-19 vaccine, Unspecified 02/24/2021 12:00:00 AM EDT completed [facility] ([facility]) Medication administered onsite Prednisone 10 MG Oral Tablet Prednisone 01/26/2021 12:00:00 AM EDT completed [facility] ([facility]) cefdinir 300 MG Oral Capsule Cefdinir 01/26/2021 12:00:00 AM EDT ORAL completed [facility] ([facility]) Cyclobenzaprine hydrochloride 10 MG Oral Tablet Cyclobenzapr ine HCL 01/13/2021 12:00:00 AM EDT ORAL active M EDENT ([facility]) Covid-19 vaccine, Unspecified 01/12/2021 12:00:00 AM EDT completed [facility] ([facility]) Medication administered onsite Nystatin 369879 UNT/ML Oral Suspension Nystatin 12/16/2020 12:00:00 AM EST completed [facility] ([facility], ) Azithromycin 250 MG Oral Tablet Azithromycin 12/16/2020 12:00:[address] ORAL completed [facility] ([facility]) Prednisone 10 MG Oral Tablet Prednisone 12/16/2020 12:00:00 AM EST ORAL completed [facility] ([facility]) Doxycycline Monohydrate 100 MG Oral Capsule Doxycycline [place] hydrate 10/18/2020 12:00:00 AM EST ORAL completed [facility] ([facility]) Prednisone 20 MG Oral Tablet Prednisone 10/18/2020 12:00:00 AM EST completed [facility] ([facility]) Prednisone 20 MG Oral Tablet Prednisone 10/06/2020 12:00:00 AM EST completed [facility] ([facility]) 200 ACTUAT Albuterol 0.09 MG/ACTUAT Metered Dose Inhaler [Pr oAir] Proair HFA 04/09/2020 12:00:00 AM EDT RESPIRATORY completed [facility] ([facility]) Amoxicillin 875 MG / Clavulanate 125 MG Oral Tablet Am oxicillin/Clavulanate Potassium 04/09/2020 12:00:00 AM EDT ORAL completed [facility] ([facility]) Prednisone 20 MG Oral Tablet Prednisone 04/09/2020 12:00:00 AM EDT completed [facility] ([facility], [facility]) Insurance Providers Payer name Policy type / Coverage type Policy ID Covered libertarian ID Covered libertarian's relationship to hernández Policy Hernández Plan Information [employer] PLUS [id number] SP [id number] [employer] PLUS [id number] SP [id number] EXCELLUS I [id number] Self [id number] [facility] I [id number] Self [id number] MEDICAID [id number] SP [id number] MEDICAID [id number] SP [id number] Medicaid [place] [id number] Self [id number] [place] [id number] Self [id number] MEDICAID [id number] SP [id number] [facility] XIX -O [id number] 18 [id number] [facility] Health Maintenance Organization (HMO) [id number] Self [id number] [facility] O [id number] S [id number] [facility] Community Plan Medigap Part B [id number] Self BC/BS Of [place] Commercial [id number] Self UNHC AMERICHOICE XIX -HMO UNAVAILABLE UNAVAILABLE MEDICAID-O/P [id number] 18 [id number] C EMPIRE BLUE CROSS BLUE SHIELD-PHYSICIAN [id number] 18 [id number] BLUE CROSS BLUE SHIELD-O/P [id number] 18 [id number] Managed Care BCBS P [id number] S [id number] Medicaid S [id number] S [id number] EXCELLUS BCBS P [id number] S [id number] BLUE CROSS CORREA PLAN [id number] SP [id number] BLUE CROSS CORREA PLAN [id number] SP [id number] HMO BLUE [id number] SP [id number] VALUE OPTIONS (FHP) [id number] SP [id number] VALUE OPTIONS INPATIENT CLAIMS [id number] SP [id number] BLUE CROSS BLUE SHIELD-CLINIC [id number] 18 [id number] MEDICAID - CLINIC [id number] UNHC COMMUNITY PLAN MCDHMO [id number] SP [id number] MVP MCDHMO [id number] SP [id number] UNHC COMMUNITY PLAN MCDHMO [id number] SP [id number] MVP MCDHMO [id number] SP [id number] MVP MCDHMO [id number] SP [id number] SELF PAY ONLY [id number] SP [id number] Problems, Conditions, and Diagnoses No Information Surgeries/Procedures Procedure Description Date Indications Data Source(s) OFFICE OUTPATIENT VISIT 25 MINUTES 05/19/2021 12:00:00 AM EDT [facility] ([facility]) TOBACCO USE CESSATION INTERMEDIATE 3-10 MINUTES 2020 12:00:00 AM EDT [facility] ([facility]) Spirometry 03/05/2021 12:00:00 AM EDT M EDENT ([facility]) OFFICE OUTPATIENT VISIT 25 MINUTES 03/05/2021 12:00:00 AM EDT [facility] ([facility]) Spirometry 01/26/2021 12:00:00 AM EDT M [facility]ENT ([facility]) OFFICE OUTPATIENT VISIT 25 MINUTES 01/26/2021 12:00:00 AM EDT [facility] ([facility]) Therapeutic, Prophylactic Or Diagnostic Injection Subq/Im 01/13/2021 12:00:00 AM EDT [facility] ([facility]) Spirometry 12/01/2020 12:00:00 AM EST M [facility] ([facility]) OFFICE OUTPATIENT VISIT 25 MINUTES 12/01/2020 12:00:00 AM EST [facility] ([facility]) TOBACCO USE CESSATION INTERMEDIATE 3-10 MINUTES 2020 12:00:00 AM EST [facility] ([facility]) Results ID Date Data Source [id number] 03/05/2021 03:01:00 PM EDT [facility] ([facility]) Name Value Range Interpretation Code Description Data Kimberlee rce(s) Supporting Document(s) Erythrocyte sedimentation rate by Westergren method 37 mm/hr 0-30 Above high normal [facility] ([facility]) ID Date Data Source [id number] 03/05/2021 03:01:00 PM [facility] ([facility]) Name Value Range Interpretation Code Description Data Kimberlee rce(s) Supporting Document(s) Perinuclear AB Anca-P Laboratory test result Nor mal (applies to non-numeric results) [facility] ([facility]) The presence of positive fluorescence ex hibiting P-ANCA or C-ANCA patterns alone is not specific for the diagnosis of Khadijah's Granulomatosis (WG) or microscopic polyangiitis. Decisions about treatment should not be based solely on ANCA IFA results. The International ANCA Group Consensus recommends follow up testing of positive sera with both AL- 3 and MPO-ANCA enzyme immunoassays. As m any as 5% serum samples are positive only by EIA. Ref. AM J Clin Pathol 1999;111:507-513. Cytoplasmic Neutrop AB Anca-C Laboratory test result Normal (applies to non- numeric results) [facility] ([facility]) Anca-Atypical Laboratory test result Normal (applies t o non-numeric results) [facility]) The atypical pANCA pattern has been obse rved in a significant percentage of patients with ulcerative colitis, primary sclerosing cholangitis and autoimmune hepatitis. ID Date Data Source [id number] 03/05/2021 03:01:00 PM EDT [facility] ([facility]) Name Value Range Interpretation Code Description Data Kimberlee rce(s) Supporting Document(s) Laboratory test finding (navigational concept) Laboratory test r esult Normal (applies to non-numeric results) [facility] ([facility]) Performed at: - [facility] [id number] Tip Fixer: Carlos Live MD, Phone: [phone] Performed at: - [facility] [address] [id number] Tip Fixer: Princess Ballard MD, Phone: [phone] ID Date Data Source [id number] 03/05/2021 03:01:00 PM EDT [facility] ([facility]) Name Value Range Interpretation Code Description Data Kimberlee rce(s) Supporting Document(s) Antinuclear Antibodies Direct Laboratory test result Normal (applies to non- numeric results) [facility] ([facility]) VOCATIONAL COORDINATOR Antibodies Laboratory test result 0.0-0.9 Normal (a pplies to non-numeric results) [facility] ([facility]) Young Antibodies Laboratory test result 0.0-0.9 Normal ( applies to non-numeric results) [facility] ([facility]) Sjogren's Anti SS-A Laboratory test result 0.0-0.9 Erin l (applies to non- numeric results) [facility] ([facility]) Sjogren's Anti SS-B Laboratory test result 0.0-0.9 Erin l (applies to non- numeric results) [facility] ([facility]) ID Date Data Source [id number] 03/05/2021 02:25:00 PM EDT [facility] ([facility]) Name Value Range Interpretation Code Description Data Kimberlee rce(s) Supporting Document(s) PDFReport Laboratory test result [facility] ([facility]) FVC-Pred 4.13 L [facility] ([facility]) FVC-Pre 2.59 L [facility] ([facility]) FVC-%Pred-Pre 62 L [facility] ([facility]) FVC-LLN 3.33 L [facility] ([facility]) Fev1-Pred 3.25 L [facility] ([facility]) Fev1-Pre 2.12 L [facility] ([facility], ) Fev1-LLN 2.57 L [facility] ([facility]) Fev6-Pred 4.02 L [facility] ([facility]) Fev1-%Pred-Pre 65 L [facility] ([facility], ) Fev6-Pre 2.59 L [facility] ([facility], ) Fev6-%Pred-Pre 64 L [facility] ([facility], ) Fev6-LLN 3.23 L [facility] ([facility]) Lrq3dsa-Szj 82 % [facility] ([facility]) Ano0fwl-Iefh 80 % [facility] ([facility]) Eln9bur-Hkmf 97 % [facility] ([facility]) Lxd4onn-LFI 70 % [facility] ([facility]) Ggq4aaw-%Pred-Pre 102 % [facility] ([facility]) Iaz1ttf-%Pred-Pre 102 % [facility] ([facility]) Ccl4crt-Cis 100 % [facility] ([facility]) FEFMax-Pred 7.46 L/E/sec [facility] ([facility]) FEFMax-%Pred-Pre 70 L/E/sec [facility] ([facility]) FEFMax-Pre 5.28 L/E/sec [facility] ([facility]) Jhu8453-Ahtk 2.98 L/E/sec [facility] ([facility]) FEFMax-LLN 5.47 L/E/sec [facility] ([facility]) Yez8182-Prb 2.09 L/E/sec [facility] ([facility]) Rmq8287-EMN 1.54 L/E/sec [facility] ([facility]) ExpTime-Pre 4.39 sec [facility] ([facility]) Xih7276-%Pred-Pre 70 L/E/sec [facility] ([facility]) Jdl7vmu9-Frs 82 % [facility] ([facility]) Evy2rhs4-Eyui 82 % [facility] ([facility]) Gic8wbs6-YEI 73 % [facility] ([facility]) Bpc1nyu9-%Pred-Pre 100 % [facility] ([facility]) ID Date Data Source [id number] 01/26/2021 01:28:00 PM EDT [facility] ([facility]) Name Value Range Interpretation Code Description Data Kimberlee rce(s) Supporting Document(s) PDFReport Laboratory test result [facility] ([facility]) FVC-Pred 4.13 L [facility] ([facility]) FVC-Pre 2.32 L [facility] ([facility]) FVC-%Pred-Pre 56 L [facility] ([facility]) FVC-LLN 3.33 L [facility] ([facility]) Fev1-Pre 1.75 L [facility] ([facility]) Fev1-%Pred-Pre 53 L [facility] ([facility]) Fev1-Pred 3.25 L [facility] ([facility]) Fev1-LLN 2.57 L [facility] ([facility]) Fev6-Pre 2.32 L [facility] ([facility]) Fev6-Pred 4.02 L [facility] ([facility]) Fev6-%Pred-Pre 57 L [facility] ([facility]) Nst0pkz-Qzre 80 % [facility] ([facility]) Fev6-LLN 3.23 L [facility] ([facility]) Bfl5zwt-%Pred-Pre 94 % [facility] ([facility]) Uda1min-Qcw 76 % [facility] ([facility]) Ekl2pcr-Zugx 97 % [facility] ([facility]) Ohp6dui-TGN 70 % [facility] ([facility]) Goc4cua-Wsw 100 % [facility] ([facility]) FEFMax-Pre 2.46 L/E/sec [facility] ([facility]) Rhn0qtb-%Pred-Pre 102 % [facility] ([facility]) FEFMax-Pred 7.46 L/E/sec [facility] ([facility]) FEFMax-LLN 5.47 L/E/sec [facility] ([facility]) FEFMax-%Pred-Pre 32 L/E/sec [facility] ([facility]) Rpm1481-%Pred-Pre 51 L/E/sec [facility] ([facility]) Zme9097-Bqq 1.53 L/E/sec [facility] ([facility]) Dth4648-Vvue 2.98 L/E/sec [facility] ([facility]) ExpTime-Pre 4.01 sec [facility] ([facility]) Qsr5sib9-Gwcb 82 % [facility] ([facility]) Oiw6302-JVZ 1.54 L/E/sec [facility] ([facility]) Klx5oax5-Nca 76 % [facility] ([facility]) Uqd9tjw4-%Pred-Pre 92 % [facility] ([facility]) Zsl9zwg8-RFF 73 % [facility] ([facility]) ID Date Data Source [id number] 01/13/2021 03:23:00 PM EDT [facility] ([facility]) Name Value Range Interpretation Code Description Data Kimberlee rce(s) Supporting Document(s) Appearance, Urine Laboratory test result Normal (applies to non-numeric results) [facility] ([facility]) Color, Urine Laboratory test result Normal (applies to non -numeric results) [facility] ([facility]) PH,Urine 5.0 units 5.0-9.0 Normal (applies to non-numeric resul ts) [facility] ([facility]) Protein, Urine Auto Laboratory test result Above high norm al [facility] ([facility]) Specific Mcclure Urine Auto 1.035 1.002-1.035 Norm al (applies to non-numeric results) [facility] ([facility]) Glucose, Urine (Ua) Auto Laboratory test result Normal (applies to non-numeric results) [facility] ([facility]) Ketone, Urine Auto Laboratory test result Above high erin l [facility] ([facility]) Nitrite, Urine Auto Laboratory test result Erin l (applies to non-numeric results) [facility] ([facility]) Bilirubin, Urine Auto Laboratory test result Above high no rmal [facility] ([facility]) Urobilinogen, Urine Auto 4.0 mg/dL 0.0-2.0 Above high normal [facility] Blood, Urine Blood Laboratory test result Normal (applies to non-numeric results) [facility] ([facility]) Leukocyte Esterase, Urine Auto Laboratory test result Normal (applies to non- numeric results) [facility] ([facility]) RBC, Urine Auto 19 /HPF 0-3 Above high normal [facility] ([facility]) WBC, Urine Auto 5 /HPF 0-3 Above high normal [facility] ([facility]) Squamous Epithelial Cell Ur AU 10 /HPF 0-6 N ormal (applies to non-numeric results) [facility] ([facility]) Bacteria, Urine Auto Laboratory test result Norm al (applies to non-numeric results) [facility] ([facility]) Mucus, Urine Laboratory test result Normal (applies to non -numeric results) [facility] ([facility]) Hyaline Cast, Urine Auto 1 /LPF 0-1 Normal (applies to non -numeric results) [facility] ([facility]) ID Date Data Source [id number] 01/13/2021 03:23:00 PM EDT [facility] ([facility]) Name Value Range Interpretation Code Description Data Kimberlee rce(s) Supporting Document(s) Amphetamines Level Urine Laboratory test result Normal (applies to non-numeric results) [facility] ([facility]) Benzodiazepines Urine Laboratory test result Above high no rmal [facility] ([facility]) Barbiturates Urine Laboratory test result Normal (applies to non-numeric results) [facility] ([facility]) Cocaine Metabolite Urine Laboratory test result Normal (applies to non-numeric results) [facility] ([facility]) Cannabinoids Urine Laboratory test result Normal (applies to non-numeric results) [facility] ([facility]) Methadone Urine Laboratory test result Normal (a pplies to non-numeric results) [facility] ([facility]) Opiates Urine Laboratory test result Normal (applies t o non-numeric results) [facility] ([facility]) Phencyclidine Urine Laboratory test result Erin l (applies to non-numeric results) [facility] ([facility]) ALL PRESUMPTIVE POSITIVE FINDINGS AR [...] CALL THE LAB. ID Date Data Source [id number] 01/13/2021 02:32:00 PM EDT [facility] ([facility]) Name Value Range Interpretation Code Description Data Kimberlee rce(s) Supporting Document(s) iSTAT Glucose 100 mg/dL 70-105 Normal (applies to non-numeric re sults) [facility] ([facility]) iSTAT Sodium 136 meq/L 136-145 Normal (applies to non-numeric res ults) [facility] ([facility]) iSTAT HCT 37.0 % 38.0-51.0 Below low normal [facility] iSTAT CA++ 3.8 mg/dL 4.5-5.3 Below low normal [facility]) Laboratory test finding (navigational concept) 97 meq/L 98-109 Below low normal [facility] ([facility]) iSTAT Potassium 4.6 meq/L 3.5-5.1 Normal (applies to non-numeric results) [facility] ([facility]) Laboratory test finding (navigational concept) 31.0 MM/L 2 3.0-27.0 Above high normal [facility] ([facility]) Laboratory test finding (navigational concept) 7 mg/dL 8-26 Below low normal [facility] ([facility]) Laboratory test finding (navigational concept) 0.8 mg/dL 0 .6-1.3 Normal (applies to non-numeric results) [facility] ([facility]) ID Date Data Source [id number] 01/13/2021 02:17:00 PM EDT [facility] ([facility]) Name Value Range Interpretation Code Description Data Kimberlee rce(s) Supporting Document(s) Platelets [#/volume] in Blood by Estimate Laboratory test result Normal (applies to non-numeric results) [facility] ([facility]) ID Date Data Source [id number] 01/13/2021 02:17:00 PM EDT [facility] ([facility]) Name Value Range Interpretation Code Description Data Kimberlee rce(s) Supporting Document(s) Neutrophils 63 % 28-66 Normal (applies to non-numeric resu lts) [facility] ([facility]) Bands 1 % Normal (applies to non-numeric resul ts) [facility] ([facility]) Monocytes 10 % 0-5 Above high normal [facility] ([facility]) Eosinophils 6 % 0-3 Above high normal [facility] ([facility]) Lymphocytes 18 % 16-44 Normal (applies to non-numeric resu lts) [facility] ([facility]) Atypical Lymph 1 % 0-5 Normal (applies to non-numeric r esults) [facility] ([facility]) Basophils 1 % 0-1 Normal (applies to non-numeric resul ts) [facility] ([facility]) ID Date Data Source [id number] 01/13/2021 02:17:00 PM EDT [facility] ([facility]) Name Value Range Interpretation Code Description Data Kimberlee rce(s) Supporting Document(s) Red Blood Count 3.81 10 4.00-5.40 Below low normal [facility] ([facility]) White Blood Count 4.6 10 4.0-10.0 Normal (applies to non-numeri c results) [facility] ([facility]) Hemoglobin 12.1 g/dL 12.0-15.5 Normal (applies to non-numeric resul ts) [facility]) Hematocrit 37.5 % 36.0-47.0 Normal (applies to non-numeric resul ts) [facility]) Mean Corpuscular Hemoglobin 31.8 pg 27.0-33.0 Norm al (applies to non-numeric results) [facility]) Mean Corpuscular HGB Conc 32.3 g/dL 32.0-36.5 Normal (applies to non-numeric results) [facility]) Mean Corpuscular Volume 98.4 fl 80.0-96.0 Above high normal [facility] ([facility]) Red Cell Distribution Width 15.5 % 11.5-14.5 Above high normal [facility] [facility] Platelet Count, Automated 192 10 150-450 Normal (applies to non-numeric results) [facility]) Nucleated Red Blood Cell % 0.0 % 0-0 Normal (applies to n on-numeric results) [facility]) ID Date Data Source [id number] 01/13/2021 02:17:00 PM EDT [facility]) Name Value Range Interpretation Code Description Data Kimberlee rce(s) Supporting Document(s) Lipoprotein lipase [Enzymatic activity/volume] in Serum or Plasm a 96 U/L 73-393 Normal (applies to non-numeric results) [facility] ([facility]) Ethanol [Mass/volume] in Serum or Plasma Laboratory test result 0.000-0.010 Normal (applies to non-numeric results) [facility]) ID Date Data Source [id number] 01/13/2021 02:17:00 PM EDT [facility] ([facility]) Name Value Range Interpretation Code Description Data Kimberlee rce(s) Supporting Document(s) Ast/Sgot 22 U/L 7-37 Normal (applies to non-numeric resul ts) [facility] ([facility], ) Alkaline Phosphatase 88 U/L 45-117 Normal (applies to non-num jorge results) [facility] ([facility]) Alt/SGPT 12 U/L 12-78 Normal (applies to non-numeric resul ts) [facility] ([facility]) Bilirubin,Direct 0.1 mg/dL 0.0-0.2 Normal (applies to non-numeric results) [facility]) Bilirubin,Total 0.3 mg/dL 0.2-1.0 Normal (applies to non-numeric results) [facility]) Albumin/Globulin Ratio 0.9 1.2-2.2 Below low normal [facility] ([facility]) Albumin 3.1 GM/DL 3.2-5.2 Below low normal [facility] ( [facility]) Total Protein 6.5 GM/DL 6.4-8.2 Normal (applies to non-numeric re sults) [facility] ([facility]) ID Date Data Source [id number] [facility] Name Value Range Interpretation Code Description Data Kimberlee rce(s) Supporting Document(s) CPK Creatine Phosphokinase 84 U/L 26-192 Erin l (applies to non-numeric results) [facility] ([facility]) CK-MB Value Mass Laboratory test result Normal ( applies to non-numeric results) [facility] ([facility]) MB/CK Relative Index 1.19 Normal (applies to non-num jorge results) [facility]) <content>DIAGNOSIS CRITERIA</content>
<content>MMB ng/ml Relative Index (RI)</content>
<content>NON-AMI < or = 5 N/A</content>
<content>GOLDSTEIN ZONE > 5 < or = 4</content>
<content>AMI > 5 > 4</content>
<content></content> Troponin I Laboratory test result Normal (applies to non-n umeric results) [facility] ([facility], ) <content>Troponin I Reference Interval f or Siemens [place] LOCI:</content>
<content></content>
<content>99th Percentile= 0.00-0.045 ng/ml</content>
<content></content>
<content>Risk Stratification:</content>
<content><= 0.10 ng/ml Decreased Risk for Adverse Clinical</content>
<content>Events.</content>
<content>0.10-1.50 ng/ml Increased Risk for Adverse Clinical</content>
<content>Events. Evaluation of additional</content>
<content>criterion and/or repeat testing in 2-6</content>
<content>hours is suggested to rule out myocardial</content>
<content>damage.</content>
<content>>= 1.50 ng/ml Indicative of Myocardial Injury.</content>
<content></content> ID Date Data Source [id number] 01/13/2021 02:17:00 PM EDT [facility] ([facility]) Name Value Range Interpretation Code Description Data Kimberlee rce(s) Supporting Document(s) Prothrombin Time 12.2 s 12.5-14.3 Normal (applies to non-numeric results) [facility] ([facility], ) Inr 0.89 Normal (applies to non-numeric resul ts) [facility]) THERAPUTIC HUMAN INR VALUES INDICATIONS NORMAL RANGES PROPHYLAXIS/TREATMENT OF: VENOUS THROMBOSIS 2.0-3.0 PULMONARY EMBOLISM 2.0-3.0 PREVENTION OF SYSTEMIC EMBOLISM FROM: TISSUE HEART VALVES 2.0-3.0 ACUTE MYOCARDIAL INFARCTION 2.0-3.0 VALVULAR HEART DISEASE 2.0-3.0 ATRIAL FIBRILLATION 2.0-3.0 MECHANICAL VALVES(HIGH RISK) 2.5-3.5 RECURRENT MYOCARDIAL INFARCTION 2.5-3.5 Partial Thromboplastin Time 38.9 s 24.2-38.5 Above high normal [facility] ([facility], ) ID Date Data Source [id number] 01/13/2021 11:25:00 AM EDT [facility] ([facility]) Name Value Range Interpretation Code Description Data Kimberlee rce(s) Supporting Document(s) White Blood Count 4.7 10 4.0-10.0 [facility] ([facility], [facility]) see note- pt sent to ED. Hemoglobin 13.1 g/dL 12.0-15.5 [facility] ([facility], [facility]) see note- pt sent to ED. Red Blood Count 4.24 10 4.00-5.40 [facility] ([facility], [facility]) see note- pt sent to ED. Mean Corpuscular Volume 99.1 fl 80.0-96.0 M [facility] ([facility], [facility]) see note- pt sent to ED. Hematocrit 42.0 % 36.0-47.0 [facility] see note- pt sent to ED. Mean Corpuscular Hemoglobin 30.9 pg 27.0-33.0 [facility] ([facility]) see note- pt sent to ED. Red Cell Distribution Width 15.5 % 11.5-14.5 [facility] ([facility]) see note- pt sent to ED. Mean Corpuscular HGB Conc 31.2 g/dL 32.0-36.5 [facility] ([facility], [facility]) see note- pt sent to ED. Neutrophils % 56.9 % 36.0-66.0 [facility] ([facility], [facility]) see note- pt sent to ED. Platelet Count, Automated 202 10 150-450 [facility] ([facility]) see note- pt sent to ED. Lymph % 28.3 % 24.0-44.0 [facility] ([facility], [facility]) see note- pt sent to ED. Eos % 3.0 % 0.0-3.0 [facility] ([facility]) see note- pt sent to ED. Baso % 0.9 % 0.0-1.0 [facility] ([facility]) see note- pt sent to ED. [place] % 10.5 % 2.0-8.0 [facility] ([facility]) see note- pt sent to ED. Neutrophils # 2.7 10 1.5-8.5 [facility] ([facility]) see note- pt sent to ED. Immature Granulocyte % 0.4 % 0-3.0 [facility] ([facility]) see note- pt sent to ED. Nucleated Red Blood Cell % 0.0 % 0-0 [facility] ([facility]) see note- pt sent to ED. Eos # 0.1 10 0.0-0.5 [facility] ([facility]) see note- pt sent to ED. [place] # 0.5 10 0.0-0.8 [facility] ([facility]) see note- pt sent to ED. Lymph # 1.3 10 1.5-5.0 [facility] ([facility]) see note- pt sent to ED. Baso # 0.0 10 0.0-0.2 [facility] ([facility]) see note- pt sent to ED. ID Date Data Source [id number] 01/13/2021 11:25:00 AM EDT [facility] ([facility]) Name Value Range Interpretation Code Description Data Kimberlee rce(s) Supporting Document(s) Fibrin D-dimer FEU [Mass/volume] in Platelet poor plasma 856.09 ng/mL [facility]) see note- pt sent to ED. ID Date Data Source [id number] 01/13/2021 12:00:00 AM [facility]T [facility] Name Value Range Interpretation Code Description Data Kimberlee rce(s) Supporting Document(s) SARS-CoV2 Rapid Antigen Negative [facility] This lab was reported by [facility]. ID Date Data Source [id number] 10/06/2020 12:00:00 AM EST [facility] Name Value Range Interpretation Code Description Data Kimberlee rce(s) Supporting Document(s) SARS coronavirus 2 Ag [facility] This lab was ordered by [facility] and reported by [facility]. Procedure Social History No Information Vital Signs ID Date Data Source [id number] Name Value Range Interpretation Code Description Data Source(s) Heart rate 94 /min 94 /min [facility] ([facility]) Oxygen saturation in Arterial blood by Pulse oximetry 93 % 93 % [facility] ([facility]) Body height 69 [in_i] 69 [in_i] [facility] ([facility]) 5'9" Body weight 168.00 [lb_av] 168.00 [lb_av] [facility] ([facility]) Body mass index (BMI) [Ratio] 24.8 kg/m2 24.8 k g/m2 [facility] ([facility]) [place] body weight 145 [lb_av] 145 [lb_av] [facility] ([facility]) Systolic blood pressure 110 mm[Hg] 110 mm[Hg] [facility] ([facility]) Diastolic blood pressure 60 mm[Hg] 60 mm[Hg] [facility] ([facility]) Body weight 76.205 kg 76.205 kg [facility] ([facility]) Body surface area Derived from formula 1.92 m2 1.92 m2 [facility] ([facility]) Oxygen saturation in Arterial blood by Pulse oximetry 95 % 95 % [facility] ([facility]) Body height 69 [in_i] 69 [in_i] [facility] ([facility]) 5'9" Body weight 167.00 [lb_av] 167.00 [lb_av] [facility] ([facility]) Body mass index (BMI) [Ratio] 24.7 kg/m2 24.7 k g/m2 [facility] ([facility]) [place] body weight 145 [lb_av] 145 [lb_av] [facility] ([facility]) Body weight 75.751 kg 75.751 kg [facility] ([facility]) Body surface area Derived from formula 1.91 m2 1.91 m2 [facility] ([facility]) Oxygen saturation in Arterial blood by Pulse oximetry 95 % 95 % [facility] ([facility]) Body height 69 [in_i] 69 [in_i] [facility] ([facility]) 5'9" Body weight 167.00 [lb_av] 167.00 [lb_av] [facility] ([facility]) Body mass index (BMI) [Ratio] 24.7 kg/m2 24.7 k g/m2 [facility] ([facility]) [place] body weight 145 [lb_av] 145 [lb_av] [facility] ([facility]) Body weight 75.751 kg 75.751 kg [facility] ([facility]) Body surface area Derived from formula 1.91 m2 1.91 m2 [facility] ([facility]) Systolic blood pressure 122 mm[Hg] 122 mm[Hg] M [facility] ([facility]) Diastolic blood pressure 80 mm[Hg] 80 mm[Hg] [facility] ([facility]) Heart rate 90 /min 90 /min [facility] ([facility]) Systolic blood pressure 114 mm[Hg] 114 mm[Hg] M [facility] ([facility]) Diastolic blood pressure 68 mm[Hg] 68 mm[Hg] [facility] ([facility]) Heart rate 80 /min 80 /min [facility] ([facility]) Oxygen saturation in Arterial blood by Pulse oximetry 94 % 94 % [facility] ([facility]) Body height 69 [in_i] 69 [in_i] [facility] ([facility]) 5'9" Body weight 164.38 [lb_av] 164.38 [lb_av] [facility] ([facility]) Body mass index (BMI) [Ratio] 24.3 kg/m2 24.3 k g/m2 [facility] ([facility]) [place] body weight 145 [lb_av] 145 [lb_av] [facility] ([facility]) Body weight 74.561 kg 74.561 kg [facility] ([facility]) Body surface area Derived from formula 1.90 m2 1.90 m2 [facility] ([facility]) Systolic blood pressure 117 mm[Hg] 117 mm[Hg] M [facility] ([facility], [facility]) Diastolic blood pressure 70 mm[Hg] 70 mm[Hg] [facility] ([facility], [facility]) Heart rate 89 /min 89 /min [facility] ([facility], [facility]) Respiratory rate 13 /min 13 /min [facility] ( [facility], [facility]) Oxygen saturation in Arterial blood by Pulse oximetry 96 % 96 % [facility] ([facility]) Body temperature 98.8 [degF] 98.8 [degF] [facility] ([facility], [facility]) Body weight 165.00 [lb_av] 165.00 [lb_av] [facility] ([facility], [facility]) Body height 69 [in_i] 69 [in_i] [facility] ([facility]) 5'9" Body mass index (BMI) [Ratio] 24.4 kg/m2 24.4 k g/m2 [facility] ([facility]) Systolic blood pressure 110 mm[Hg] 110 mm[Hg] [facility] Body weight 76.205 kg 76.205 kg [facility] ([facility]) [place] body weight 145 [lb_av] 145 [lb_av] [facility] Body surface area Derived from formula 1.92 m2 1.92 m2 [facility] ([facility]) Diastolic blood pressure 70 mm[Hg] 70 mm[Hg] [facility] ([facility]) Heart rate 97 /min 97 /min [facility] ([facility]) Oxygen saturation in Arterial blood by Pulse oximetry 92 % 92 % [facility] ([facility]) Body temperature 97.5 [degF] 97.5 [degF] [facility] ([facility]) Body height 69 [in_i] 69 [in_i] [facility] ([facility]) 5'9" Body weight 168.00 [lb_av] 168.00 [lb_av] [facility] ([facility]) Body mass index (BMI) [Ratio] 24.8 kg/m2 24.8 k g/m2 [facility] ([facility]) Body height 69 [in_i] 69 [in_i] [facility] ([facility], [facility]) 5'9" Systolic blood pressure 102 mm[Hg] 102 mm[Hg] M [facility] ([facility], [facility]) Diastolic blood pressure 70 mm[Hg] 70 mm[Hg] [facility] ([facility], [facility]) Heart rate 76 /min 76 /min [facility] ([facility], [facility]) Respiratory rate 15 /min 15 /min [facility] ( [facility], [facility]) Oxygen saturation in Arterial blood by Pulse oximetry 94 % 94 % [facility] ([facility], [facility]) Body temperature 98.8 [degF] 98.8 [degF] [facility] ([facility], [facility]) Body weight 160.00 [lb_av] 160.00 [lb_av] [facility] ([facility], [facility]) Body mass index (BMI) [Ratio] 23.6 kg/m2 23.6 k g/m2 [facility] ([facility], [facility]) Body temperature 98.4 [degF] 98.4 [degF] [facility] ([facility], [facility]) Body height 69 [in_i] 69 [in_i] [facility] ([facility], [facility]) 5'9" Respiratory rate 16 /min 16 /min [facility] ( [facility], [facility]) Oxygen saturation in Arterial blood by Pulse oximetry 93 % 93 % [facility] ([facility], [facility]) Body mass index (BMI) [Ratio] 23.6 kg/m2 23.6 k g/m2 [facility] ([facility], [facility]) Diastolic blood pressure 76 mm[Hg] 76 mm[Hg] [facility] ([facility], [facility]) Heart rate 87 /min 87 /min [facility] ([facility], [facility]) Body weight 160.00 [lb_av] 160.00 [lb_av] [facility] ([facility]) Systolic blood pressure 120 mm[Hg] 120 mm[Hg] [facility]) Systolic blood pressure 110 mm[Hg] 110 mm[Hg] M [facility] ([facility]) Diastolic blood pressure 70 mm[Hg] 70 mm[Hg] [facility] ([facility]) Oxygen saturation in Arterial blood by Pulse oximetry 93 % 93 % [facility] ([facility]) Body temperature 96.4 [degF] 96.4 [degF] [facility] ([facility]) Body height 69 [in_i] 69 [in_i] [facility] ([facility]) 5'9" Body weight 161.00 [lb_av] 161.00 [lb_av] [facility] Body mass index (BMI) [Ratio] 23.8 kg/m2 23.8 k g/m2 [facility] ([facility]) [place] body weight 145 [lb_av] 145 [lb_av] [facility] Body weight 73.030 kg 73.030 kg [facility] ([facility]) Body surface area Derived from formula 1.88 m2 1.88 m2 [facility] ([facility]) Heart rate 81 /min 81 /min [facility] ([facility])
== END 2021-08-14 10:07 | disposition left against medical advice (07) ==
LOC: M ED 08:59
DX: Z53.21 Procedure and treatment not carried out due to patient leaving prior to being seen by health care provider (principal)

== ENCOUNTER 2021-10-24 12:48 | Emergency (ER) | payer OTHER ==
[~2021-10-24] VITALS: Ht 175.3 cm; Wt 72.7 kg
[~2021-10-24 12:48] MED LIST changes: +DOXY-443 PO; -DOXY1CAP62 PO; +INCR1INH INH
[2021-10-24] MEDS ORDERED: methylPREDNISolone 125MG 2ML VIAL IV ONE (14:05)
[2021-10-24] MEDS: COMBIVENT RESPIMAT 100-20MCG INHALER 4GM INH SCH ×2 (14:25→15:28)
[2021-10-24 14:43] VITALS: BP 102/49
[2021-10-24 14:47] LABS: ABG BASE EXCESS -0.9 (-2.0-2.0); ABG HCO3 25.3 MEQ/L (22.0-26.0); ABG PARTIAL PRESSURE CO2 47.5 mmHg (35.0-45.0); ABG PARTIAL PRESSURE O2 60.7 mmHg (75.0-100.0); ABG STANDARD HCO3 23.6 MEQ/L (22.0-26.0); ABG TOTAL CO2 26.7 MEQ/L (22.0-29.0); ABG pH (ARTERIAL) 7.344 UNITS (7.350-7.450)
[2021-10-24] MEDS ORDERED: ISOVUE-370 76% 100ML VIAL As Ordered ONE (15:00)
[2021-10-24 15:10] LABS: BASO % 0.3 % (0.0-1.0); EOS # 0.1 10^3/uL (0.0-0.5); EOS % 1.1 % (0.0-3.0); HEMATOCRIT 42.3 % (36.0-47.0); HEMOGLOBIN 13.5 g/dl (12.0-15.5); LYMPH # 1.4 10^3/uL (1.5-5.0); LYMPH % 19.4 % (24.0-44.0); MEAN CORPUSCULAR HGB CONC 31.9 g/dl (32.0-36.5); MONO # 0.5 10^3/uL (0.0-0.8); MONO % 7.2 % (2.0-8.0); NEUTROPHILS # 5.2 10^3/uL (1.5-8.5); NEUTROPHILS % 71.7 % (36.0-66.0); PLATELET COUNT, AUTOMATED 151 10^3/uL (150-450); RED BLOOD COUNT 4.36 10^6/uL (4.00-5.40); WHITE BLOOD COUNT 7.2 10^3/uL (4.0-10.0)
--- NOTE | 2021-10-24 15:10 | REP ---
INDICATION: DYSPNEA/COUGH COMPARISON: 01/26/2021 TECHNIQUE: Portable AP view of the chest FINDINGS: Perihilar and lower lobe markings suggest scattered atelectasis with right middle lobe consolidation. No effusion. No pneumothorax. Mediastinum and cardiac silhouette are normal. Skeletal structures are intact. IMPRESSION: 1. Right middle lobe consolidation suggesting pneumonia with perihilar and bibasilar streaky atelectasis. <Electronically signed by Kendrick Null > 10/24/21 [id number]
[2021-10-24] MEDS ORDERED: cefTRIAXone SOD 2 GM in D5W MINI-BAG PLUS 50 ML IV ONE (15:15)
[2021-10-24] MEDS ORDERED: NS 1,000 ML IV ONE (15:20)
--- NOTE | 2021-10-24 15:40 | REP ---
INDICATION: hemoptysis; righ sided chest pain COMPARISON: 05/06/2021 TECHNIQUE: Axial contrast enhanced images from the thoracic inlet to the upper abdomen using pulmonary embolus technique with multiplanar re-formations. 75 ml Isovue 370 intravenous contrast material administered without complication. This CT examination was performed using the following dose reduction techniques: Automated exposure control, adjustment of mA and/or kv according to the patient's size, and use of iterative reconstruction technique. FINDINGS: Satisfactory enhancement of the pulmonary vasculature is achieved and no filling defects are identified to suggest pulmonary embolus. Further evaluation of the mediastinum demonstrates relatively normal age-appropriate appearance thoracic aorta, heart and pericardium. There is right middle lobe consolidation, smaller left lower lobe consolidation, as well as streaky basilar atelectasis and subtle ground-glass airspace opacities. Reactive mediastinal adenopathy is noted. No significant effusion. No pneumothorax. The musculoskeletal structures are intact and without acute osseous abnormality. IMPRESSION: Right middle lobe and to a lesser extent left lower lobe consolidations with streaky elements of linear atelectasis and subtle scattered ground-glass opacities most compatible with multifocal pneumonia. Follow-up to resolution is recommended. <Electronically signed by Kendrick Null > 10/24/21 [id number]
[2021-10-24 15:41] LABS: ALBUMIN 3.3 GM/DL (3.2-5.2); BILIRUBIN,DIRECT 0.2 MG/DL (0.0-0.2); BILIRUBIN,TOTAL 0.3 MG/DL (0.2-1.0); THYROID STIMULATING HORMONE 2.52 uIU/ML (0.358-3.740); THYROXINE (T4) 6.2 UG/DL (4.5-12.0); TOTAL PROTEIN 6.8 GM/DL (6.4-8.2)
[2021-10-24] MEDS ORDERED: PERCOCET 5MG/325MG TAB PO ONE (16:00)
[2021-10-24] MEDS ORDERED: PRED20TA PO (16:55)
[2021-10-24] MEDS ORDERED: CEFD300CAP PO (16:56)
--- NOTE | 2021-10-24 19:18 | ECGEPIP ---
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
== END 2021-10-24 18:58 | disposition home or self-care (01) ==
LOC: M ED 12:48
DX: J18.9 Pneumonia, unspecified organism (principal); J44.1 Chronic obstructive pulmonary disease with (acute) exacerbation; I10 Essential (primary) hypertension; F33.9 Major depressive disorder, recurrent, unspecified; F41.9 Anxiety disorder, unspecified; E78.9 Disorder of lipoprotein metabolism, unspecified; Z79.899 Other long term (current) drug therapy; Z88.1 Allergy status to other antibiotic agents; Z88.5 Allergy status to narcotic agent; Z88.8 Allergy status to other drugs, medicaments and biological substances; F17.210 Nicotine dependence, cigarettes, uncomplicated
CPT/HCPCS: 36600; 71045; 71275; 80047; 80076; 82803; 83605; 83880; 84436; 84443; 85025; 86850; 86900; 86901; 87040; 87070; 87077; 87186; 87205; 87798; 93005; 93041; 94640; 94664; 96374; 96375; 99284; J0696; J2930; Q9967

== ENCOUNTER → 2021-12-03 | Outpatient (CLI) | payer OTHER ==
[~2021-12-03] MED LIST changes: +CEFD300CAP PO; -DICY20TA11; +DICY20TA20; +PRED20TA PO; -PROC10TA4 PO; +PROC10TA5 PO
== END ==
LOC: M RAD 17:54
PROVIDERS: ATTEND Physician Assistant
DX: R91.8 Other nonspecific abnormal finding of lung field (principal)

== ENCOUNTER → 2022-01-21 | Outpatient (CLI) | payer OTHER ==
[2022-01-21 15:08] LABS: IMMUNOGLOBULIN G 1020 MG/DL (681-1648)
[2022-01-21 15:10] LABS: IMMUNOGLOBULIN M < 5.3 MG/DL (40-230)
== END ==
LOC: M RAD 12:45
PROVIDERS: ATTEND Physician Assistant
DX: R91.8 Other nonspecific abnormal finding of lung field (principal)

== ENCOUNTER → 2022-03-18 | Outpatient (CLI) | payer OTHER ==
[~2022-03-18] MED LIST changes: -ACET1TAB16; +ACET300T48
[2022-03-18 10:21] LABS: BASO # 0.1 10^3/uL (0.0-0.2); BASO % 0.9 % (0.0-1.0); EOS # 0.1 10^3/uL (0.0-0.5); EOS % 1.7 % (0.0-3.0); HEMATOCRIT 46.3 % (36.0-47.0); HEMOGLOBIN 14.9 g/dl (12.0-15.5); LYMPH # 1.8 10^3/uL (1.5-5.0); LYMPH % 28.6 % (24.0-44.0); MEAN CORPUSCULAR HEMOGLOBIN 31.6 pg (27.0-33.0); MEAN CORPUSCULAR HGB CONC 32.2 g/dl (32.0-36.5); MEAN CORPUSCULAR VOLUME 98.3 fl (80.0-96.0); MONO # 0.5 10^3/uL (0.0-0.8); MONO % 8.4 % (2.0-8.0); NEUTROPHILS # 3.9 10^3/uL (1.5-8.5); NEUTROPHILS % 59.9 % (36.0-66.0); PLATELET COUNT, AUTOMATED 198 10^3/uL (150-450); RED BLOOD COUNT 4.71 10^6/uL (4.00-5.40); WHITE BLOOD COUNT 6.4 10^3/uL (4.0-10.0)
[2022-03-18 10:41] LABS: BLOOD UREA NITROGEN 13 MG/DL (7-18); CARBON DIOXIDE LEVEL 31 MEQ/L (21-32); CHLORIDE LEVEL 101 MEQ/L (98-107); CREATININE FOR GFR 0.98 MG/DL (0.55-1.30); GLOMERULAR FILTRATION RATE > 60.0 (>51); GLUCOSE, FASTING 72 MG/DL (70-100); POTASSIUM SERUM 4.5 MEQ/L (3.5-5.1); SODIUM LEVEL 138 MEQ/L (136-145)
== END ==
LOC: M WUC 08:32
PROVIDERS: ATTEND Physician Assistant
DX: R91.8 Other nonspecific abnormal finding of lung field (principal); R05.9 Cough, unspecified

== ENCOUNTER → 2022-04-19 | Outpatient (REF) | payer OTHER | LOC: M LAB REF 14:00 | PROVIDERS: ATTEND Physician Assistant | DX: J43.1 Panlobular emphysema (principal) ==

== ENCOUNTER 2022-04-25 12:24 | Emergency (ER) | payer OTHER ==
[~2022-04-25] VITALS: Ht 175.3 cm; Wt 73.0 kg
[2022-04-25 14:31] LABS: ABG BASE EXCESS 4.8 (-2.0-2.0); ABG HCO3 31.9 MEQ/L (22.0-26.0); ABG O2 SATURATION 93.5 % (95.0-99.0); ABG PARTIAL PRESSURE CO2 58.2 mmHg (35.0-45.0); ABG PARTIAL PRESSURE O2 64.5 mmHg (75.0-100.0); ABG STANDARD HCO3 28.6 MEQ/L (22.0-26.0); ABG TOTAL CO2 33.7 MEQ/L (22.0-29.0); ABG pH (ARTERIAL) 7.357 UNITS (7.350-7.450)
[2022-04-25 14:36] LABS: BASO # 0.1 10^3/uL (0.0-0.2); BASO % 0.7 % (0.0-1.0); EOS % 0.3 % (0.0-3.0); HEMATOCRIT 41.3 % (36.0-47.0); HEMOGLOBIN 13.4 g/dl (12.0-15.5); LYMPH # 2.1 10^3/uL (1.5-5.0); LYMPH % 28.4 % (24.0-44.0); MEAN CORPUSCULAR HEMOGLOBIN 32.1 pg (27.0-33.0); MEAN CORPUSCULAR HGB CONC 32.4 g/dl (32.0-36.5); MEAN CORPUSCULAR VOLUME 98.8 fl (80.0-96.0); MONO # 0.5 10^3/uL (0.0-0.8); MONO % 6.8 % (2.0-8.0); NEUTROPHILS # 4.8 10^3/uL (1.5-8.5); NEUTROPHILS % 63.4 % (36.0-66.0); PLATELET COUNT, AUTOMATED 199 10^3/uL (150-450); RED BLOOD COUNT 4.18 10^6/uL (4.00-5.40); WHITE BLOOD COUNT 7.5 10^3/uL (4.0-10.0)
[2022-04-25 14:57] LABS: INR 0.9; PROTHROMBIN TIME 12.5 SECONDS (12.7-14.5)
[2022-04-25 15:00] LABS: CK-MB VALUE MASS 1.8 NG/ML (<3.6); CPK CREATINE PHOSPHOKINASE 56 U/L (26-192); MB/CK RELATIVE INDEX 3.21 (< OR =4)
[2022-04-25 15:06] LABS: ALBUMIN 3.9 GM/DL (3.2-5.2); ALT/SGPT 18 U/L (12-78); BILIRUBIN,DIRECT 0.2 MG/DL (0.0-0.2); BILIRUBIN,TOTAL 0.4 MG/DL (0.2-1.0); BLOOD UREA NITROGEN 9 MG/DL (7-18); CARBON DIOXIDE LEVEL 33 MEQ/L (21-32); CHLORIDE LEVEL 100 MEQ/L (98-107); CREATININE FOR GFR 0.73 MG/DL (0.55-1.30); GLOMERULAR FILTRATION RATE > 60.0 (>51); GLUCOSE, FASTING 83 MG/DL (70-100); NT-PRO BNP 189 PG/ML (<125); POTASSIUM SERUM 4.5 MEQ/L (3.5-5.1); SODIUM LEVEL 135 MEQ/L (136-145); TOTAL PROTEIN 7.4 GM/DL (6.4-8.2)
[2022-04-25] MEDS ORDERED: CEFDINIR 300 MG CAP (OMNICEF) PO ONE (16:15)
[2022-04-25] MEDS ORDERED: dexameTHASONE 20MG/5ML VIAL (J1100 PER 1MG) IV ONE (16:15)
[2022-04-25] MEDS ORDERED: PRED20TA PO (16:20)
[2022-04-25] MEDS ORDERED: CEFD300C41 PO (16:20)
[2022-04-25 16:51] VITALS: BP 117/62
== END 2022-04-25 16:52 | disposition home or self-care (01) ==
LOC: M ED 12:24
DX: J18.9 Pneumonia, unspecified organism (principal); I10 Essential (primary) hypertension; J44.9 Chronic obstructive pulmonary disease, unspecified; E78.5 Hyperlipidemia, unspecified; Z79.899 Other long term (current) drug therapy; Z88.1 Allergy status to other antibiotic agents; Z88.5 Allergy status to narcotic agent; Z88.8 Allergy status to other drugs, medicaments and biological substances; F17.200 Nicotine dependence, unspecified, uncomplicated
CPT/HCPCS: 36600; 71045; 80048; 80076; 82550; 82553; 82803; 83605; 83880; 84443; 85025; 85610; 87040; 87486; 87581; 87633; 87798; 93005; 93041; 94760; 96374; 99284; J1100

== ENCOUNTER 2022-05-10 16:18 | Inpatient (IN) | payer OTHER ==
[~2022-05-10] VITALS: Ht 175.3 cm; Wt 73.6 kg
[~2022-05-10 16:18] MED LIST changes: +CEFD300C41 PO
[2022-05-10] MEDS ORDERED: methylPREDNISolone 125MG 2ML VIAL IV ONE (17:15)
[2022-05-10 17:40] LABS: BASO % 0.3 % (0.0-1.0); EOS # 0.2 10^3/uL (0.0-0.5); EOS % 2.2 % (0.0-3.0); HEMATOCRIT 35.4 % (36.0-47.0); HEMOGLOBIN 11.6 g/dl (12.0-15.5); LYMPH # 1.7 10^3/uL (1.5-5.0); LYMPH % 22.8 % (24.0-44.0); MEAN CORPUSCULAR HGB CONC 32.8 g/dl (32.0-36.5); MEAN CORPUSCULAR VOLUME 97.8 fl (80.0-96.0); MONO # 0.7 10^3/uL (0.0-0.8); MONO % 8.8 % (2.0-8.0); NEUTROPHILS % 65.5 % (36.0-66.0); PLATELET COUNT, AUTOMATED 170 10^3/uL (150-450); RED BLOOD COUNT 3.62 10^6/uL (4.00-5.40); WHITE BLOOD COUNT 7.6 10^3/uL (4.0-10.0)
[2022-05-10] MEDS: IPRATROPIUM 0.5MG/ALBUTEROL 2.5MG INH SOL UD 3ML (DUONEB) NEB PRN ×3 (18:00→19:41)
[2022-05-10 18:15] LABS: CK-MB VALUE MASS 1.3 NG/ML (<3.6); MB/CK RELATIVE INDEX 2.45 (< OR =4)
[2022-05-10 18:20] LABS: ALBUMIN 2.9 GM/DL (3.2-5.2); ALT/SGPT 23 U/L (12-78); BILIRUBIN,DIRECT 0.2 MG/DL (0.0-0.2); BILIRUBIN,TOTAL 0.7 MG/DL (0.2-1.0); BLOOD UREA NITROGEN 9 MG/DL (7-18); CARBON DIOXIDE LEVEL 33 MEQ/L (21-32); CHLORIDE LEVEL 99 MEQ/L (98-107); CREATININE FOR GFR 0.87 MG/DL (0.55-1.30); GLOMERULAR FILTRATION RATE > 60.0 (>51); GLUCOSE, FASTING 77 MG/DL (70-100); NT-PRO BNP 4209 PG/ML (<125); POTASSIUM SERUM 3.7 MEQ/L (3.5-5.1); SODIUM LEVEL 135 MEQ/L (136-145); TOTAL PROTEIN 6.2 GM/DL (6.4-8.2)
[2022-05-10] MEDS ORDERED: ISOVUE-370 76% 100ML VIAL As Ordered ONE (18:28)
[2022-05-10 19:14] LABS: CK-MB VALUE MASS 1.2 NG/ML (<3.6); MB/CK RELATIVE INDEX 1.46 (< OR =4)
[2022-05-10] MEDS ORDERED: clonazePAM 0.5 MG TAB PO ONE (19:45)
[2022-05-10] MEDS: ADVAIR HFA 115/21MCG INHALER INH SCH (20:00)
[2022-05-10 20:04] LABS: ABG BASE EXCESS 5.4 (-2.0-2.0); ABG HCO3 30.6 MEQ/L (22.0-26.0); ABG O2 SATURATION 90.1 % (95.0-99.0); ABG PARTIAL PRESSURE O2 57.8 mmHg (75.0-100.0); ABG STANDARD HCO3 29.2 MEQ/L (22.0-26.0); ABG pH (ARTERIAL) 7.431 UNITS (7.350-7.450)
[2022-05-10] MEDS ORDERED: CLON0.5T2 PO (20:27)
[2022-05-10] MEDS ORDERED: LUBI8CAP PO (20:27)
[2022-05-10] MEDS ORDERED: LEVO25TA5 PO (20:27)
[2022-05-10] MEDS ORDERED: IBUP-1764 PO (20:27)
[2022-05-10] MEDS ORDERED: ALBU2.5V10 INH (20:27)
[2022-05-10] MEDS ORDERED: NYST50SS PO (20:27)
[2022-05-10] MEDS ORDERED: HOME MED LIST COMPLETE! XX SCH (20:30)
[2022-05-10] MEDS ORDERED: ALBUTEROL SULFATE 2.5 MG/0.5 ML INH NEB SOLN NEB PRN (20:50)
[2022-05-10] MEDS ORDERED: ACETAMINOPHEN TAB 650MG DOSE (2X325MG) PO PRN (20:50)
[2022-05-10] MEDS: DOXYCYCLINE HYCLATE 100MG TABLET PO SCH (22:34)
[2022-05-11] MEDS: IPRATROPIUM 0.5MG/ALBUTEROL 2.5MG INH SOL UD 3ML (DUONEB) NEB SCH ×3 (01:53→14:00)
[2022-05-11] MEDS: methylPREDNISolone 40MG 1ML VIAL IV SCH ×2 (02:00→10:27)
[2022-05-11] MEDS ORDERED: METAL LOCK LOOP XX ONE (05:14)
[2022-05-11] MEDS ORDERED: HEPARIN SOD (PORCINE) 5000UNITS/ML 1ML VIAL/SYRINGE SC SCH (06:00)
[2022-05-11] MEDS ORDERED: LEVOTHYROXINE 25MCG TABLET (0.025MG) PO SCH (06:00)
[2022-05-11 07:14] LABS: BLOOD UREA NITROGEN 9 MG/DL (7-18); CALCIUM LEVEL 8.2 MG/DL (8.5-10.1); CARBON DIOXIDE LEVEL 31 MEQ/L (21-32); CHLORIDE LEVEL 103 MEQ/L (98-107); CREATININE FOR GFR 0.69 MG/DL (0.55-1.30); GLOMERULAR FILTRATION RATE > 60.0 (>51); GLUCOSE, FASTING 137 MG/DL (70-100); MAGNESIUM LEVEL 2.2 MG/DL (1.8-2.4); POTASSIUM SERUM 4.1 MEQ/L (3.5-5.1); SODIUM LEVEL 137 MEQ/L (136-145)
[2022-05-11] MEDS: ADVAIR HFA 115/21MCG INHALER INH SCH (07:41)
[2022-05-11 07:44] LABS: HEMOGLOBIN 10.9 g/dl (12.0-15.5); MEAN CORPUSCULAR HEMOGLOBIN 32.2 pg (27.0-33.0); MEAN CORPUSCULAR VOLUME 97.6 fl (80.0-96.0); PLATELET COUNT, AUTOMATED 157 10^3/uL (150-450); RED BLOOD COUNT 3.38 10^6/uL (4.00-5.40)
[2022-05-11] MEDS ORDERED: TIOTROPIUM INHALER/CAPSULE (SPIRIVA) INH SCH (08:00)
[2022-05-11] MEDS ORDERED: cefTRIAXone SOD 1 GM in D5W MINI-BAG PLUS 50 ML IV SCH (08:00)
[2022-05-11] MEDS ORDERED: NICOTINE 14 MG/24 HR TRANSDERMAL TD SCH (09:00)
[2022-05-11] MEDS ORDERED: clonazePAM 0.5 MG TAB PO PRN (09:00)
[2022-05-11] MEDS ORDERED: FUROSEMIDE 100MG/10ML VIAL (J1940) IV SCH (09:00)
[2022-05-11] MEDS: DOXYCYCLINE HYCLATE 100MG TABLET PO SCH (09:44)
[2022-05-11 12:00] VITALS: BP 109/55
[2022-05-11] MEDS ORDERED: PROB1CAP10 PO (12:01)
[2022-05-11] MEDS ORDERED: AMOX875T2 PO (12:01)
== END 2022-05-11 12:32 | disposition home or self-care (01) | DRG 194 ==
LOC: M ED 16:18 → M ED INP 20:48
PROVIDERS: ADMIT Internal Medicine; ATTEND Internal Medicine
PROC: BW24YZZ Computerized Tomography (CT Scan) of Chest and Abdomen using Other Contrast (ICD-10-PCS; principal; 2022-05-10)
DX: I50.9 Heart failure, unspecified (principal); J69.0 Pneumonitis due to inhalation of food and vomit; D80.4 Selective deficiency of immunoglobulin M [IgM]; I27.20 Pulmonary hypertension, unspecified; J44.1 Chronic obstructive pulmonary disease with (acute) exacerbation; R13.10 Dysphagia, unspecified; F17.210 Nicotine dependence, cigarettes, uncomplicated; R07.89 Other chest pain; E03.9 Hypothyroidism, unspecified; D64.9 Anemia, unspecified; Z20.822 Contact with and (suspected) exposure to COVID-19; Z79.51 Long term (current) use of inhaled steroids; Z79.899 Other long term (current) drug therapy; Z88.1 Allergy status to other antibiotic agents; Z88.8 Allergy status to other drugs, medicaments and biological substances; F41.9 Anxiety disorder, unspecified

== ENCOUNTER → 2022-05-31 | Outpatient (CLI) | payer OTHER ==
[~2022-05-31] MED LIST changes: +ALBU2.5V10 INH; +AMOX875T2 PO; +CLON0.5T2 PO; +IBUP-1764 PO; +LEVO25TA5 PO; +LUBI8CAP PO; +NYST50SS PO; +PROB1CAP10 PO
== END ==
LOC: M LAB 12:10
PROVIDERS: ATTEND Psychiatry & Neurology Neurology
DX: R13.10 Dysphagia, unspecified (principal); R56.9 Unspecified convulsions

== ENCOUNTER → 2022-06-14 | Outpatient (CLI) | payer OTHER | LOC: M RAD 10:38 | PROVIDERS: ATTEND Internal Medicine Pulmonary Disease | DX: J43.1 Panlobular emphysema (principal) ==

== ENCOUNTER → 2022-08-16 | Outpatient (CLI) | payer OTHER | LOC: M PLAIMG 10:24 | PROVIDERS: ATTEND Internal Medicine Pulmonary Disease | DX: J43.9 Emphysema, unspecified (principal) ==

== ENCOUNTER → 2022-09-02 | Outpatient (CLI) | payer OTHER ==
[2022-09-02 17:39] LABS: CHOLESTEROL RISK RATIO 3.477 (<5); THYROID STIMULATING HORMONE 4.65 uIU/ML (0.358-3.740)
== END ==
LOC: M WUC 13:08
PROVIDERS: ATTEND Physician Assistant
DX: E78.5 Hyperlipidemia, unspecified (principal)

== ENCOUNTER 2022-09-24 13:20 | Inpatient (IN) | payer OTHER ==
[~2022-09-24] VITALS: Ht 175.3 cm; Wt 72.4 kg
[2022-09-24] MEDS ORDERED: ASPIRIN 81MG CHEW TABLET PO ONE (14:10)
[2022-09-24] MEDS ORDERED: IPRATROPIUM 0.5MG/ALBUTEROL 2.5MG INH SOL UD 3ML (DUONEB) NEB ONE (14:10)
[2022-09-24 14:59] LABS: BASO % 0.4 % (0.0-1.0); EOS % 0.4 % (0.0-3.0); HEMATOCRIT 37.6 % (36.0-47.0); HEMOGLOBIN 11.9 g/dl (12.0-15.5); LYMPH % 12.8 % (24.0-44.0); MEAN CORPUSCULAR HEMOGLOBIN 30.2 pg (27.0-33.0); MEAN CORPUSCULAR HGB CONC 31.6 g/dl (32.0-36.5); MEAN CORPUSCULAR VOLUME 95.4 fl (80.0-96.0); MONO # 0.6 10^3/uL (0.0-0.8); MONO % 7.5 % (2.0-8.0); NEUTROPHILS # 6.3 10^3/uL (1.5-8.5); NEUTROPHILS % 78.6 % (36.0-66.0); PLATELET COUNT, AUTOMATED 190 10^3/uL (150-450); RED BLOOD COUNT 3.94 10^6/uL (4.00-5.40)
[2022-09-24 15:10] LABS: INR 1.09; PROTHROMBIN TIME 14.4 SECONDS (12.5-14.5)
[2022-09-24 16:09] LABS: CHLORIDE LEVEL 99 MMOL/L (98-107); CK-MB VALUE MASS < 1.0 NG/ML (<3.6); POTASSIUM SERUM 4.5 MMOL/L (3.5-5.1); SODIUM LEVEL 136 MMOL/L (136-145)
[2022-09-24 16:34] LABS: CK-MB VALUE MASS < 1.0 NG/ML (<3.6); CPK CREATINE PHOSPHOKINASE 34 U/L (34-145); MB/CK RELATIVE INDEX 2.94 (< OR =4)
[2022-09-24 16:34] LABS: ALBUMIN 3.1 G/DL (3.2-5.2); ALKALINE PHOSPHATASE 160 U/L (46-116); ALT/SGPT 10 U/L (7.0-40); AST/SGOT 20 U/L (<34); BILIRUBIN,DIRECT < 0.1 MG/DL (<0.4); BILIRUBIN,TOTAL 0.2 MG/DL (0.3-1.2); BLOOD UREA NITROGEN 10 MG/DL (9-23); CALCIUM LEVEL 7.9 MG/DL (8.5-10.1); CARBON DIOXIDE LEVEL 27 MMOL/L (20-31); CPK CREATINE PHOSPHOKINASE 54 U/L (34-145); CREATININE FOR GFR 0.82 MG/DL (0.55-1.30); GLOMERULAR FILTRATION RATE > 60.0 (>51); GLUCOSE, FASTING 77 MG/DL (60-100); LIPASE 30 U/L (12-53); MB/CK RELATIVE INDEX 1.85 (< OR =4); TOTAL PROTEIN 7.2 G/DL (5.7-8.2)
[2022-09-24] MEDS ORDERED: ISOVUE-370 76% 100ML VIAL As Ordered ONE (17:01)
[2022-09-24] MEDS ORDERED: NS 500 ML IV ONE (18:10)
[2022-09-24] MEDS ORDERED: MEROPENEM INJ 1 GM in IV 1 EA IV ONE (18:20)
[2022-09-24] MEDS ORDERED: VENL75CA47 PO (20:06)
[2022-09-24] MEDS ORDERED: CLON1TAB8 PO (20:06)
[2022-09-24] MEDS ORDERED: CVS1CAP2 PO (20:06)
[2022-09-24] MEDS ORDERED: FLUT1INH3 PO (20:06)
[2022-09-24] MEDS ORDERED: LEVO50TA5 PO (20:06)
[2022-09-24] MEDS ORDERED: HOME MED LIST COMPLETE! XX SCH (20:10)
[2022-09-24] MEDS ORDERED: MOM 30ML SUSPENSION UDC PO PRN (21:15)
[2022-09-24] MEDS ORDERED: ACETAMINOPHEN TAB 650MG DOSE (2X325MG) PO PRN (21:15)
[2022-09-24] MEDS ORDERED: ALBUTEROL SULFATE 2.5 MG/0.5 ML INH NEB SOLN NEB PRN (21:15)
[2022-09-24] MEDS ORDERED: NS 1,000 ML IV ONE (21:50)
[2022-09-24 22:10] VITALS: BP 97/44
[2022-09-24] MEDS: NS 1,000 ML IV SCH ×2 (22:19→22:55)
[2022-09-24] MEDS ORDERED: MIDODRINE 5 MG TAB PO ONE (23:15)
[2022-09-25] VITALS (15 sets, daily range): BP systolic 90–105; BP diastolic 44–54; O2SAT 92–97
[2022-09-25] MEDS: IPRATROPIUM 0.5MG/ALBUTEROL 2.5MG INH SOL UD 3ML (DUONEB) NEB SCH ×5 (01:06→20:13)
[2022-09-25] MEDS ORDERED: MEROPENEM INJ 1 GM in IV 1 EA IV SCH (03:00)
[2022-09-25] MEDS ORDERED: SYMBICORT 160/4.5MCG INHALER 6GM INH SCH (08:00)
[2022-09-25 08:21] LABS: BLOOD UREA NITROGEN 6 MG/DL (9-23); CALCIUM LEVEL 7.8 MG/DL (8.5-10.1); CARBON DIOXIDE LEVEL 30 MMOL/L (20-31); CHLORIDE LEVEL 103 MMOL/L (98-107); CREATININE FOR GFR 0.61 MG/DL (0.55-1.30); GLOMERULAR FILTRATION RATE > 60.0 (>51); GLUCOSE, FASTING 82 MG/DL (60-100); POTASSIUM SERUM 4.1 MMOL/L (3.5-5.1); SODIUM LEVEL 138 MMOL/L (136-145)
[2022-09-25] MEDS: PANTOPRAZOLE 40MG TAB (PROTONIX) PO SCH (09:52)
[2022-09-25] MEDS: DOCUSATE SODIUM 100MG CAPSULE PO SCH ×2 (09:52→20:47)
[2022-09-25] MEDS: ENOXAPARIN 40MG/0.4ML SYRINGE (J1650 PER 10MG) SC SCH (09:52)
[2022-09-25] MEDS: predniSONE 20 MG TAB PO SCH (09:53)
[2022-09-25 10:00] LABS: BASO % 0.5 % (0.0-1.0); EOS % 0.5 % (0.0-3.0); HEMATOCRIT 33.5 % (36.0-47.0); HEMOGLOBIN 10.3 g/dl (12.0-15.5); LYMPH # 0.8 10^3/uL (1.5-5.0); LYMPH % 13.8 % (24.0-44.0); MEAN CORPUSCULAR HEMOGLOBIN 29.3 pg (27.0-33.0); MEAN CORPUSCULAR HGB CONC 30.7 g/dl (32.0-36.5); MEAN CORPUSCULAR VOLUME 95.4 fl (80.0-96.0); MONO # 0.5 10^3/uL (0.0-0.8); MONO % 8.9 % (2.0-8.0); NEUTROPHILS # 4.2 10^3/uL (1.5-8.5); NEUTROPHILS % 75.9 % (36.0-66.0); PLATELET COUNT, AUTOMATED 156 10^3/uL (150-450); RED BLOOD COUNT 3.51 10^6/uL (4.00-5.40); WHITE BLOOD COUNT 5.5 10^3/uL (4.0-10.0)
[2022-09-25] MEDS ORDERED: IPRATROPIUM 0.5MG/ALBUTEROL 2.5MG INH SOL UD 3ML (DUONEB) NEB ONE (10:00)
[2022-09-25] MEDS ORDERED: NS 500 ML IV ONE (10:00)
[2022-09-25] MEDS: LEVOTHYROXINE 50MCG TABLET (0.05MG) PO SCH (10:33)
[2022-09-25] MEDS: AMPICILLIN SOD/SULBACTAM SOD 3 GM in D5W MINI-BAG PLUS 100 ML IV SCH ×3 (10:34→21:06)
[2022-09-25] MEDS: VENLAFAXINE **XR** 75MG CAPSULE PO SCH (15:12)
[2022-09-25] MEDS ORDERED: NS 1,000 ML IV SCH (22:45)
[2022-09-26] VITALS: BP 107/52
[2022-09-26] MEDS: IPRATROPIUM 0.5MG/ALBUTEROL 2.5MG INH SOL UD 3ML (DUONEB) NEB SCH ×6 (00:10→19:55)
[2022-09-26 04:00] VITALS: BP 103/51
[2022-09-26] MEDS: AMPICILLIN SOD/SULBACTAM SOD 3 GM in D5W MINI-BAG PLUS 100 ML IV SCH ×4 (04:34→21:11)
[2022-09-26] MEDS: LEVOTHYROXINE 50MCG TABLET (0.05MG) PO SCH (06:34)
[2022-09-26 06:50] LABS: BLOOD UREA NITROGEN 6 MG/DL (9-23); CALCIUM LEVEL 8.1 MG/DL (8.5-10.1); CARBON DIOXIDE LEVEL 27 MMOL/L (20-31); CHLORIDE LEVEL 101 MMOL/L (98-107); CREATININE FOR GFR 0.54 MG/DL (0.55-1.30); GLOMERULAR FILTRATION RATE > 60.0 (>51); GLUCOSE, FASTING 88 MG/DL (60-100); POTASSIUM SERUM 3.4 MMOL/L (3.5-5.1); SODIUM LEVEL 137 MMOL/L (136-145)
[2022-09-26] MEDS ORDERED: POTASSIUM CHLORIDE 10MEQ SR TABLET PO ONE (07:35)
[2022-09-26 07:49] VITALS: BP 116/53
[2022-09-26] MEDS: VENLAFAXINE **XR** 75MG CAPSULE PO SCH ×2 (07:55→15:14)
[2022-09-26] MEDS: predniSONE 20 MG TAB PO SCH (08:00)
[2022-09-26] MEDS: PANTOPRAZOLE 40MG TAB (PROTONIX) PO SCH (08:00)
[2022-09-26] MEDS: DOCUSATE SODIUM 100MG CAPSULE PO SCH ×2 (08:00→21:11)
[2022-09-26 12:55] VITALS: BP 113/59
[2022-09-26 15:59] VITALS: BP 104/49
[2022-09-26 20:00] VITALS: BP 130/68
[2022-09-27] VITALS: BP 124/58
[2022-09-27] MEDS: IPRATROPIUM 0.5MG/ALBUTEROL 2.5MG INH SOL UD 3ML (DUONEB) NEB SCH ×4 (03:29→11:19)
[2022-09-27] MEDS: AMPICILLIN SOD/SULBACTAM SOD 3 GM in D5W MINI-BAG PLUS 100 ML IV SCH ×2 (03:57→10:01)
[2022-09-27 04:00] VITALS: BP 120/72
[2022-09-27] MEDS: LEVOTHYROXINE 50MCG TABLET (0.05MG) PO SCH (05:47)
[2022-09-27 05:54] LABS: HEMATOCRIT 32.7 % (36.0-47.0); HEMOGLOBIN 10.7 g/dl (12.0-15.5); MEAN CORPUSCULAR HEMOGLOBIN 29.6 pg (27.0-33.0); MEAN CORPUSCULAR HGB CONC 32.7 g/dl (32.0-36.5); MEAN CORPUSCULAR VOLUME 90.6 fl (80.0-96.0); PLATELET COUNT, AUTOMATED 201 10^3/uL (150-450); RED BLOOD COUNT 3.61 10^6/uL (4.00-5.40); WHITE BLOOD COUNT 9.8 10^3/uL (4.0-10.0)
[2022-09-27 06:18] LABS: CARBON DIOXIDE LEVEL 26 MMOL/L (20-31); CHLORIDE LEVEL 102 MMOL/L (98-107); POTASSIUM SERUM 3.8 MMOL/L (3.5-5.1); SODIUM LEVEL 137 MMOL/L (136-145)
[2022-09-27 06:23] LABS: CALCIUM LEVEL 7.8 MG/DL (8.5-10.1)
[2022-09-27 06:24] LABS: BLOOD UREA NITROGEN 9 MG/DL (9-23); GLUCOSE, FASTING 78 MG/DL (60-100)
[2022-09-27 06:26] LABS: CREATININE FOR GFR 0.58 MG/DL (0.55-1.30); GLOMERULAR FILTRATION RATE > 60.0 (>51)
[2022-09-27 07:21] VITALS: BP 130/60
[2022-09-27] MEDS: ENOXAPARIN 40MG/0.4ML SYRINGE (J1650 PER 10MG) SC SCH (08:42)
[2022-09-27] MEDS: DOCUSATE SODIUM 100MG CAPSULE PO SCH (08:43)
[2022-09-27] MEDS: predniSONE 20 MG TAB PO SCH (08:43)
[2022-09-27] MEDS: PANTOPRAZOLE 40MG TAB (PROTONIX) PO SCH (08:43)
[2022-09-27] MEDS: VENLAFAXINE **XR** 75MG CAPSULE PO SCH (08:43)
[2022-09-27 11:26] VITALS: BP 120/58
[2022-09-27] MEDS ORDERED: AUGM500T34 PO (13:32)
[2022-09-27] MEDS ORDERED: PRED10TA2 PO (15:35)
== END 2022-09-27 15:43 | disposition home health service (06) | DRG 139 ==
LOC: M ED 13:20 → M ED INP 20:22 → M PCU 22:00
PROVIDERS: ADMIT Family Medicine; ATTEND Internal Medicine
PROC: 0B9J8ZX Drainage of Left Lower Lung Lobe, Via Natural or Artificial Opening Endoscopic, Diagnostic (ICD-10-PCS; principal; 2022-09-26 10:00)
DX: J18.9 Pneumonia, unspecified organism (principal); D80.4 Selective deficiency of immunoglobulin M [IgM]; J44.0 Chronic obstructive pulmonary disease with (acute) lower respiratory infection; J90 Pleural effusion, not elsewhere classified; R13.10 Dysphagia, unspecified; J44.1 Chronic obstructive pulmonary disease with (acute) exacerbation; F44.4 Conversion disorder with motor symptom or deficit; D33.3 Benign neoplasm of cranial nerves; R91.1 Solitary pulmonary nodule; F17.200 Nicotine dependence, unspecified, uncomplicated; R29.6 Repeated falls; Z79.899 Other long term (current) drug therapy; Z88.1 Allergy status to other antibiotic agents; Z88.8 Allergy status to other drugs, medicaments and biological substances; Z88.5 Allergy status to narcotic agent; Z71.6 Tobacco abuse counseling

== ENCOUNTER → 2022-11-21 | Outpatient (CLI) | payer OTHER ==
[~2022-11-21] MED LIST changes: +AUGM500T34 PO; +CVS1CAP2 PO; +FLUT1INH3 PO; +LEVO50TA5 PO; +NYST-38 PO; -NYST50SS PO
[2022-11-21 16:41] LABS: BASO # 0.1 10^3/uL (0.0-0.2); BASO % 1.3 % (0.0-1.0); EOS # 0.1 10^3/uL (0.0-0.5); EOS % 1.1 % (0.0-3.0); HEMATOCRIT 44.5 % (36.0-47.0); HEMOGLOBIN 13.9 g/dl (12.0-15.5); LYMPH # 2.1 10^3/uL (1.5-5.0); LYMPH % 33.5 % (24.0-44.0); MEAN CORPUSCULAR HEMOGLOBIN 30.8 pg (27.0-33.0); MEAN CORPUSCULAR HGB CONC 31.2 g/dl (32.0-36.5); MEAN CORPUSCULAR VOLUME 98.5 fl (80.0-96.0); MONO # 0.6 10^3/uL (0.0-0.8); MONO % 9.1 % (2.0-8.0); NEUTROPHILS # 3.4 10^3/uL (1.5-8.5); NEUTROPHILS % 54.5 % (36.0-66.0); PLATELET COUNT, AUTOMATED 245 10^3/uL (150-450); RED BLOOD COUNT 4.52 10^6/uL (4.00-5.40); WHITE BLOOD COUNT 6.2 10^3/uL (4.0-10.0)
[2022-11-21 17:04] LABS: PERCENT SATURATION 18.7 % (13.2-45.0)
[2022-11-21 17:06] LABS: FERRITIN 93.1 NG/ML (7.3-270.7)
== END ==
LOC: M WUC 13:29
PROVIDERS: ATTEND Physician Assistant
DX: Z01.89 Encounter for other specified special examinations (principal)

== ENCOUNTER → 2022-12-01 | Outpatient (REF) | payer OTHER | LOC: M LAB REF 16:35 | PROVIDERS: ATTEND Physician Assistant | DX: Z12.4 Encounter for screening for malignant neoplasm of cervix (principal) ==

== ENCOUNTER → 2022-12-07 | Outpatient (CLI) | payer OTHER | LOC: M WUC 14:29 | PROVIDERS: ATTEND Physician Assistant | DX: E03.9 Hypothyroidism, unspecified (principal) ==

== ENCOUNTER → 2023-01-17 | Outpatient (CLI) | payer OTHER | LOC: M PLAIMG 12:50 | PROVIDERS: ATTEND Internal Medicine Pulmonary Disease | DX: R91.8 Other nonspecific abnormal finding of lung field (principal) ==

== ENCOUNTER → 2023-02-06 | Outpatient (CLI) | payer OTHER | LOC: M WUC 12:43 | PROVIDERS: ATTEND Physician Assistant | DX: E03.9 Hypothyroidism, unspecified (principal) ==

== ENCOUNTER → 2023-03-16 | Outpatient (REF) | payer OTHER | LOC: M LAB REF 16:58 | PROVIDERS: ATTEND Physician Assistant | DX: Z79.899 Other long term (current) drug therapy (principal) ==

== ENCOUNTER 2023-04-23 11:03 | Inpatient (IN) | payer OTHER ==
[~2023-04-23] VITALS: Ht 175.3 cm; Wt 69.4 kg
[2023-04-23] MEDS ORDERED: EFFE150C2 PO (11:15)
[2023-04-23] MEDS ORDERED: LEVO112T2 PO (11:15)
[2023-04-23] MEDS ORDERED: IPRATROPIUM 0.5MG/ALBUTEROL 2.5MG INH SOL UD 3ML (DUONEB) NEB PRN ×2 (11:40→16:30)
[2023-04-23] MEDS ORDERED: methylPREDNISolone 125MG 2ML VIAL IV ONE (11:40)
[2023-04-23] MEDS ORDERED: ALBUTEROL SULFATE 2.5MG/0.5ML INH NEB SOLN INH PRN (11:40)
[2023-04-23 12:29] LABS: BASO % 0.5 % (0.0-1.0); EOS % 0.2 % (0.0-3.0); HEMATOCRIT 36.8 % (36.0-47.0); LYMPH % 11.6 % (24.0-44.0); MEAN CORPUSCULAR HEMOGLOBIN 31.2 pg (27.0-33.0); MEAN CORPUSCULAR HGB CONC 32.6 g/dl (32.0-36.5); MEAN CORPUSCULAR VOLUME 95.6 fl (80.0-96.0); MONO # 0.8 10^3/uL (0.0-0.8); MONO % 9.3 % (2.0-8.0); NEUTROPHILS # 6.7 10^3/uL (1.5-8.5); PLATELET COUNT, AUTOMATED 212 10^3/uL (150-450); RED BLOOD COUNT 3.85 10^6/uL (4.00-5.40); WHITE BLOOD COUNT 8.7 10^3/uL (4.0-10.0)
[2023-04-23 12:39] LABS: INR 1.02; PROTHROMBIN TIME 13.6 SECONDS (12.5-14.5)
[2023-04-23] MEDS ORDERED: NS 1,000 ML IV ONE (12:40)
[2023-04-23 12:42] LABS: D-DIMER QUANT 2373.12 ng/ml (<500)
[2023-04-23] MEDS ORDERED: ACETAMINOPHEN TAB 650MG DOSE (2X325MG) PO ONE (13:10)
[2023-04-23 14:03] LABS: ALBUMIN 2.5 G/DL (3.2-5.2); ALKALINE PHOSPHATASE 119 U/L (46-116); ALT/SGPT 9 U/L (7.0-40); AST/SGOT 11 U/L (<34); BILIRUBIN,DIRECT < 0.1 MG/DL (<0.4); BILIRUBIN,TOTAL 0.2 MG/DL (0.3-1.2); BLOOD UREA NITROGEN 8 MG/DL (9-23); CALCIUM LEVEL 7.7 MG/DL (8.5-10.1); CARBON DIOXIDE LEVEL 25 MMOL/L (20-31); CHLORIDE LEVEL 104 MMOL/L (98-107); CK-MB VALUE MASS < 1.0 NG/ML (<3.6); CPK CREATINE PHOSPHOKINASE 40 U/L (34-145); CREATININE FOR GFR 0.78 MG/DL (0.55-1.30); GLOMERULAR FILTRATION RATE > 60.0 (>51); GLUCOSE, FASTING 82 MG/DL (60-100); POTASSIUM SERUM 4.1 MMOL/L (3.5-5.1); SODIUM LEVEL 136 MMOL/L (136-145); TOTAL PROTEIN 5.6 G/DL (5.7-8.2)
[2023-04-23] MEDS ORDERED: ISOVUE-370 76% 100ML VIAL As Ordered ONE (14:12)
[2023-04-23] MEDS ORDERED: cefTRIAXone SOD 2 GM in D5W MINI-BAG PLUS 50 ML IV ONE (15:10)
[2023-04-23] MEDS ORDERED: DOXYCYCLINE HYCLATE 100 MG in D5W MINI-BAG PLUS 100 ML IV ONE (15:10)
[2023-04-23] MEDS ORDERED: MED REC IN PROGRESS XX SCH (15:50)
[2023-04-23] MEDS ORDERED: VENL75CA47 PO (16:35)
[2023-04-23] MEDS ORDERED: ALBU8.5H INH (16:35)
[2023-04-23] MEDS ORDERED: LINZ72CA PO (16:35)
[2023-04-23] MEDS ORDERED: FLUT1INH3 INH (16:35)
[2023-04-23] MEDS ORDERED: LEVO100T54 PO (16:35)
[2023-04-23] MEDS ORDERED: IBUP200C28 PO (16:35)
[2023-04-23] MEDS ORDERED: HOME MED LIST COMPLETE! XX SCH (16:40)
[2023-04-23 19:28] VITALS: BP 107/53; TEMP 96.6; O2SAT 96
[2023-04-23] MEDS: SYMBICORT 160/4.5MCG INHALER 6GM INH SCH (20:25)
[2023-04-23] MEDS: IPRATROPIUM 0.5MG/ALBUTEROL 2.5MG INH SOL UD 3ML (DUONEB) NEB SCH (20:25)
[2023-04-23] MEDS: HEPARIN SOD (PORCINE) 5000UNITS/ML 1ML VIAL/SYRINGE SC SCH (21:05)
[2023-04-23] MEDS: VENLAFAXINE **XR** 75MG CAPSULE PO SCH (21:05)
[2023-04-23] MEDS: guaiFENesin 200 MG TAB PO SCH (21:05)
[2023-04-24] VITALS (13 sets, daily range): BP systolic 84–106; BP diastolic 40–54; TEMP 97.1–97.6; O2SAT 91–100
[2023-04-24] MEDS: guaiFENesin 200 MG TAB PO SCH ×6 (00:36→20:51)
[2023-04-24] MEDS: IPRATROPIUM 0.5MG/ALBUTEROL 2.5MG INH SOL UD 3ML (DUONEB) NEB SCH ×2 (01:37→08:33)
[2023-04-24 05:46] LABS: HEMATOCRIT 35.7 % (36.0-47.0); HEMOGLOBIN 11.5 g/dl (12.0-15.5); MEAN CORPUSCULAR HEMOGLOBIN 30.7 pg (27.0-33.0); MEAN CORPUSCULAR HGB CONC 32.2 g/dl (32.0-36.5); MEAN CORPUSCULAR VOLUME 95.2 fl (80.0-96.0); PLATELET COUNT, AUTOMATED 222 10^3/uL (150-450); RED BLOOD COUNT 3.75 10^6/uL (4.00-5.40); WHITE BLOOD COUNT 5.9 10^3/uL (4.0-10.0)
[2023-04-24] MEDS: LEVOTHYROXINE 100MCG TABLET (0.1MG) PO SCH (05:59)
[2023-04-24] MEDS: HEPARIN SOD (PORCINE) 5000UNITS/ML 1ML VIAL/SYRINGE SC SCH ×2 (06:00→20:51)
[2023-04-24] MEDS: clonazePAM 1 MG TAB PO PRN ×3 (06:07→20:51)
[2023-04-24 06:13] LABS: ALBUMIN 2.5 G/DL (3.2-5.2); ALKALINE PHOSPHATASE 114 U/L (46-116); ALT/SGPT < 9 U/L (7.0-40); AST/SGOT < 8 U/L (<34); BILIRUBIN,TOTAL < 0.2 MG/DL (0.3-1.2); BLOOD UREA NITROGEN 8 MG/DL (9-23); CALCIUM LEVEL 8.1 MG/DL (8.5-10.1); CARBON DIOXIDE LEVEL 27 MMOL/L (20-31); CHLORIDE LEVEL 105 MMOL/L (98-107); CREATININE FOR GFR 0.57 MG/DL (0.55-1.30); GLOMERULAR FILTRATION RATE > 60.0 (>51); GLUCOSE, FASTING 80 MG/DL (60-100); MAGNESIUM LEVEL 1.8 MG/DL (1.8-2.4); POTASSIUM SERUM 4.2 MMOL/L (3.5-5.1); SODIUM LEVEL 136 MMOL/L (136-145); TOTAL PROTEIN 5.6 G/DL (5.7-8.2)
[2023-04-24] MEDS: SYMBICORT 160/4.5MCG INHALER 6GM INH SCH ×2 (08:33→19:51)
[2023-04-24] MEDS: DOXYCYCLINE HYCLATE 100MG TABLET PO SCH ×2 (08:50→20:51)
[2023-04-24] MEDS: VENLAFAXINE **XR** 75MG CAPSULE PO SCH ×3 (08:51→20:57)
[2023-04-24] MEDS ORDERED: KETOROLAC 30 MG/ML 1ML VIAL IV ONE (09:15)
[2023-04-24] MEDS: ALBUTEROL SULFATE 2.5MG/0.5ML INH NEB SOLN NEB SCH ×4 (12:00→23:26)
[2023-04-24] MEDS: TIOTROPIUM INHALER/CAPSULE (SPIRIVA) INH SCH (12:42)
[2023-04-24] MEDS: SODIUM CHLORIDE HYPERTONIC 3% 4ML NEB SOL INH SCH ×4 (13:18→23:27)
[2023-04-24] MEDS: ACETAMINOPHEN TAB 650MG DOSE (2X325MG) PO PRN ×2 (14:04→20:52)
[2023-04-24] MEDS: KETOROLAC 30 MG/ML 1ML VIAL IV PRN (17:03)
[2023-04-24] MEDS ORDERED: cefTRIAXone SOD 2 GM in D5W MINI-BAG PLUS 50 ML IV SCH (18:00)
[2023-04-25] VITALS (9 sets, daily range): BP systolic 105–113; BP diastolic 46–56; TEMP 97.3–97.6; O2SAT 92–97
[2023-04-25] MEDS: SODIUM CHLORIDE HYPERTONIC 3% 4ML NEB SOL INH SCH ×3 (04:38→11:15)
[2023-04-25] MEDS: ALBUTEROL SULFATE 2.5MG/0.5ML INH NEB SOLN NEB SCH ×3 (04:38→11:15)
[2023-04-25] MEDS: LEVOTHYROXINE 100MCG TABLET (0.1MG) PO SCH (05:05)
[2023-04-25] MEDS: guaiFENesin 200 MG TAB PO SCH ×4 (05:05→11:41)
[2023-04-25] MEDS: clonazePAM 1 MG TAB PO PRN (05:08)
[2023-04-25] MEDS: HEPARIN SOD (PORCINE) 5000UNITS/ML 1ML VIAL/SYRINGE SC SCH (08:16)
[2023-04-25] MEDS: VENLAFAXINE **XR** 75MG CAPSULE PO SCH (08:17)
[2023-04-25] MEDS: DOXYCYCLINE HYCLATE 100MG TABLET PO SCH (08:17)
[2023-04-25] MEDS: SYMBICORT 160/4.5MCG INHALER 6GM INH SCH (08:36)
[2023-04-25] MEDS: TIOTROPIUM INHALER/CAPSULE (SPIRIVA) INH SCH (08:36)
[2023-04-25] MEDS ORDERED: PROBCAP14 PO (10:25)
[2023-04-25] MEDS ORDERED: AMOX875T2 PO (10:25)
[2023-04-25] MEDS: KETOROLAC 30 MG/ML 1ML VIAL IV PRN (11:41)
[2023-04-27 15:08] LABS: BODY FLUID CULTURE Not indicated. (.); LEGIONELLA ANTIGEN URINE Negative (Negative); ORGANISM ID Not indicated. (.); SPECIMEN SOURCE Urine (.); URINE STREP PNEUMONIAE ANTIGEN Negative (Negative)
== END 2023-04-25 12:08 | disposition home or self-care (01) | DRG 137 ==
LOC: M ED 11:03 → M ED INP 16:27 → ENRESERV 17:08 → M PCU 19:27
PROVIDERS: ADMIT Family Medicine; ATTEND Internal Medicine Nephrology
DX: J69.0 Pneumonitis due to inhalation of food and vomit (principal); J96.11 Chronic respiratory failure with hypoxia; I95.89 Other hypotension; D80.4 Selective deficiency of immunoglobulin M [IgM]; I50.32 Chronic diastolic (congestive) heart failure; R13.10 Dysphagia, unspecified; F32.A Depression, unspecified; D33.3 Benign neoplasm of cranial nerves; F41.9 Anxiety disorder, unspecified; K58.9 Irritable bowel syndrome, unspecified; E03.9 Hypothyroidism, unspecified; J44.1 Chronic obstructive pulmonary disease with (acute) exacerbation; I35.1 Nonrheumatic aortic (valve) insufficiency; Z87.891 Personal history of nicotine dependence; Z79.890 Hormone replacement therapy; Z79.899 Other long term (current) drug therapy; Z79.52 Long term (current) use of systemic steroids; Z88.1 Allergy status to other antibiotic agents; Z88.8 Allergy status to other drugs, medicaments and biological substances; Z88.5 Allergy status to narcotic agent

== ENCOUNTER → 2023-05-11 | Outpatient (REF) | payer OTHER ==
[~2023-05-11] MED LIST changes: +ALBU8.5H INH; +EFFE150C2 PO; +FLUT1INH3 INH; +IBUP200C28 PO; +LEVO100T54 PO; +LEVO112T2 PO; +LINZ72CA PO; +PROBCAP14 PO
[2023-05-11 17:49] LABS: ALBUMIN 3.4 G/DL (3.2-5.2); ALKALINE PHOSPHATASE 106 U/L (46-116); ALT/SGPT 15 U/L (7.0-40); AST/SGOT 19 U/L (<34); BILIRUBIN,TOTAL 0.2 MG/DL (0.3-1.2); BLOOD UREA NITROGEN 8 MG/DL (9-23); CALCIUM LEVEL 8.6 MG/DL (8.5-10.1); CARBON DIOXIDE LEVEL 30 MMOL/L (20-31); CHLORIDE LEVEL 102 MMOL/L (98-107); CHOLESTEROL LEVEL 219 MG/DL (<200); CHOLESTEROL RISK RATIO 3.61 (<5); CREATININE FOR GFR 0.85 MG/DL (0.55-1.30); GLOMERULAR FILTRATION RATE > 60.0 (>51); GLUCOSE, FASTING 82 MG/DL (60-100); HDL CHOLESTEROL 60.6 MG/DL (>40); NON-HDL-C 158.4 MG/DL; POTASSIUM SERUM 5.3 MMOL/L (3.5-5.1); SODIUM LEVEL 136 MMOL/L (136-145); THYROID STIMULATING HORMONE 3.064 uIU/ML (0.55-4.78); TOTAL PROTEIN 6.7 G/DL (5.7-8.2); TRIGLYCERIDES LEVEL 147 MG/DL (<150)
[2023-05-11 18:27] LABS: HEPATITIS C VIRUS ABY INDEX 0.11 INDEX (<0.8)
== END ==
LOC: M LAB REF 16:33
PROVIDERS: ATTEND Physician Assistant
DX: Z11.59 Encounter for screening for other viral diseases (principal); E78.5 Hyperlipidemia, unspecified; E03.9 Hypothyroidism, unspecified

== ENCOUNTER → 2023-08-28 | Outpatient (CLI) | payer OTHER ==
[~2023-08-28] MED LIST changes: -CEFD300C41 PO; +CEFD300C42 PO
== END ==
LOC: M PLAIMG 08:33
PROVIDERS: ATTEND Internal Medicine Pulmonary Disease
DX: R91.8 Other nonspecific abnormal finding of lung field (principal)

== ENCOUNTER → 2023-09-08 | Outpatient (REF) | payer OTHER | LOC: M LAB REF 16:08 | PROVIDERS: ATTEND Pediatrics | DX: E03.9 Hypothyroidism, unspecified (principal) ==

== ENCOUNTER → 2023-09-13 | Outpatient (REF) | payer OTHER | LOC: M LAB REF 12:41 | PROVIDERS: ATTEND Internal Medicine Pulmonary Disease | DX: J43.1 Panlobular emphysema (principal) ==

== ENCOUNTER 2023-10-12 10:20 | Inpatient (IN) | payer OTHER ==
[2023-10-12] VITALS (9 sets, daily range): BP systolic 90–104; BP diastolic 45–62; TEMP 98.7–98.9; O2SAT 90–99
[~2023-10-12] VITALS: Ht 175.3 cm; Wt 68.5 kg
[~2023-10-12 10:20] MED LIST changes: +CEFD1CAP9 PO; -CEFD300C42 PO; -EFFE150C2 PO; +EFFE150C3 PO; +EX-L15TA PO
[2023-10-12] MEDS ORDERED: cefTRIAXone SOD 2 GM in D5W MINI-BAG PLUS 50 ML IV ONE (10:40)
[2023-10-12] MEDS ORDERED: NS IV ONE (10:40)
[2023-10-12 11:08] LABS: ABG pH (ARTERIAL) 7.258 UNITS (7.350-7.450)
[2023-10-12 11:09] LABS: ABG BASE EXCESS 0.7 (-2.0-2.0); ABG HCO3 29.5 MMOL/L (22.0-26.0); ABG O2 SATURATION 92.7 % (95.0-99.0); ABG PARTIAL PRESSURE O2 71.5 mmHg (75.0-100.0); ABG TOTAL CO2 31.5 MMOL/L (22.0-29.0)
[2023-10-12 11:16] LABS: ABG PARTIAL PRESSURE CO2 67.5 mmHg (35.0-45.0)
[2023-10-12] MEDS ORDERED: DEXTROSE 50% 50ML SYRINGE IV STA (11:22)
[2023-10-12] MEDS ORDERED: DEXTROSE 50% 50ML SYRINGE As Ordered ONE (11:23)
[2023-10-12 11:27] LABS: VENOUS BASE EXCESS 0.5 (-2.0-2.0); VENOUS HCO3 30.3 MMOL/L (23.0-27.0); VENOUS O2 SATURATION 57.9 % (60.0-80.0); VENOUS PARTIAL PRESSURE CO2 75.8 mmHg (38.0-50.0); VENOUS PARTIAL PRESSURE O2 32.7 mmHg (30.0-50.0); VENOUS TOTAL CO2 32.7 MMOL/L (24.0-28.0)
[2023-10-12 11:34] LABS: BASO % 0.3 % (0.0-1.0); HEMATOCRIT 39.6 % (36.0-47.0); HEMOGLOBIN 12.4 g/dl (12.0-15.5); LYMPH # 0.6 10^3/uL (1.5-5.0); LYMPH % 6.7 % (24.0-44.0); MEAN CORPUSCULAR HEMOGLOBIN 31.4 pg (27.0-33.0); MEAN CORPUSCULAR HGB CONC 31.3 g/dl (32.0-36.5); MEAN CORPUSCULAR VOLUME 100.3 fl (80.0-96.0); MONO # 0.9 10^3/uL (0.0-0.8); MONO % 9.3 % (2.0-8.0); NEUTROPHILS % 83.5 % (36.0-66.0); PLATELET COUNT, AUTOMATED 145 10^3/uL (150-450); RED BLOOD COUNT 3.95 10^6/uL (4.00-5.40); WHITE BLOOD COUNT 9.6 10^3/uL (4.0-10.0)
[2023-10-12 11:54] LABS: ETHYL ALCOHOL (ETHANOL) 0.004 % (0.000-0.010)
[2023-10-12 11:55] LABS: ALBUMIN 3.1 G/DL (3.2-5.2); ALKALINE PHOSPHATASE 93 U/L (46-116); ALT/SGPT 18 U/L (7.0-40); AST/SGOT 29 U/L (<34); BILIRUBIN,DIRECT < 0.1 MG/DL (<0.4); BILIRUBIN,TOTAL 0.2 MG/DL (0.3-1.2); BLOOD UREA NITROGEN 10 MG/DL (9-23); CALCIUM LEVEL 7.7 MG/DL (8.5-10.1); CARBON DIOXIDE LEVEL 35 MMOL/L (20-31); CHLORIDE LEVEL 106 MMOL/L (98-107); CREATININE FOR GFR 0.92 MG/DL (0.55-1.30); GLOMERULAR FILTRATION RATE > 60.0 (>51); GLUCOSE, FASTING 79 MG/DL (60-100); POTASSIUM SERUM 4.7 MMOL/L (3.5-5.1); SALICYLATE LEVEL < 3.0 MG/DL (<30); SODIUM LEVEL 141 MMOL/L (136-145); TOTAL PROTEIN 5.9 G/DL (5.7-8.2)
[2023-10-12 11:56] LABS: OSMOLALITY SERUM 290 MOSM/KG (275-295)
[2023-10-12 11:57] LABS: THYROID STIMULATING HORMONE 2.927 uIU/ML (0.55-4.78)
[2023-10-12] MEDS ORDERED: methylPREDNISolone 125MG 2ML VIAL IV ONE (12:15)
[2023-10-12] MEDS: IPRATROPIUM 0.5MG/ALBUTEROL 2.5MG INH SOL UD 3ML (DUONEB) NEB SCH ×5 (12:15→20:27)
[2023-10-12] MEDS ORDERED: ISOVUE-370 76% 100ML VIAL As Ordered ONE (12:48)
[2023-10-12] MEDS ORDERED: MED REC IN PROGRESS XX SCH (12:55)
[2023-10-12] MEDS ORDERED: clonazePAM 0.5 MG TAB PO PRN (13:30)
[2023-10-12] MEDS ORDERED: LEVO112T2 PO (14:27)
[2023-10-12] MEDS ORDERED: LACTATED RINGER'S 1000 ML IV ONE (14:30)
[2023-10-12] MEDS ORDERED: HOME MED LIST COMPLETE! XX SCH (14:35)
[2023-10-12] MEDS: methylPREDNISolone 40MG 1ML VIAL IV SCH (20:11)
[2023-10-13] VITALS (11 sets, daily range): BP systolic 91–116; BP diastolic 48–57; TEMP 97.4–99.3; O2SAT 90–98
[2023-10-13 05:37] LABS: HEMATOCRIT 37.2 % (36.0-47.0); HEMOGLOBIN 11.9 g/dl (12.0-15.5); MEAN CORPUSCULAR HEMOGLOBIN 31.7 pg (27.0-33.0); MEAN CORPUSCULAR VOLUME 99.2 fl (80.0-96.0); PLATELET COUNT, AUTOMATED 135 10^3/uL (150-450); RED BLOOD COUNT 3.75 10^6/uL (4.00-5.40); WHITE BLOOD COUNT 8.2 10^3/uL (4.0-10.0)
[2023-10-13 05:46] LABS: ABG BASE EXCESS 4.8 (-2.0-2.0); ABG HCO3 30.8 MMOL/L (22.0-26.0); ABG O2 SATURATION 92.9 % (95.0-99.0); ABG PARTIAL PRESSURE CO2 51.5 mmHg (35.0-45.0); ABG STANDARD HCO3 28.7 MMOL/L. (22.0-26.0); ABG TOTAL CO2 32.3 MMOL/L (22.0-29.0); ABG pH (ARTERIAL) 7.394 UNITS (7.350-7.450)
[2023-10-13] MEDS ORDERED: LEVOTHYROXINE 100MCG TABLET (0.1MG) PO SCH (06:00)
[2023-10-13 06:04] LABS: CORTISOL AM 4.1 UG/DL (4.3-22.4)
[2023-10-13 06:06] LABS: ALBUMIN 2.8 G/DL (3.2-5.2); ALKALINE PHOSPHATASE 87 U/L (46-116); ALT/SGPT 14 U/L (7.0-40); AST/SGOT 19 U/L (<34); BILIRUBIN,TOTAL 0.2 MG/DL (0.3-1.2); BLOOD UREA NITROGEN 11 MG/DL (9-23); CARBON DIOXIDE LEVEL 32 MMOL/L (20-31); CHLORIDE LEVEL 104 MMOL/L (98-107); CREATININE FOR GFR 0.64 MG/DL (0.55-1.30); GLOMERULAR FILTRATION RATE > 60.0 (>51); GLUCOSE, FASTING 116 MG/DL (60-100); POTASSIUM SERUM 4.5 MMOL/L (3.5-5.1); SODIUM LEVEL 139 MMOL/L (136-145); TOTAL PROTEIN 5.6 G/DL (5.7-8.2)
[2023-10-13] MEDS: IPRATROPIUM 0.5MG/ALBUTEROL 2.5MG INH SOL UD 3ML (DUONEB) NEB SCH ×4 (07:33→19:15)
[2023-10-13] MEDS ORDERED: LevoFLOXacin IV 750 MG in IV 1 EA IV SCH (09:00)
[2023-10-13] MEDS: ENOXAPARIN 40MG/0.4ML SYRINGE (J1650 PER 10MG) SC SCH (09:32)
[2023-10-13] MEDS: VENLAFAXINE **XR** 75MG CAPSULE PO SCH ×2 (09:32→20:14)
[2023-10-13] MEDS: methylPREDNISolone 40MG 1ML VIAL IV SCH ×2 (09:33→20:14)
[2023-10-13] MEDS ORDERED: clonazePAM 0.5 MG TAB PO PRN (13:20)
[2023-10-13] MEDS ORDERED: clonazePAM 1 MG TAB PO ONE (16:40)
[2023-10-14 00:55] VITALS: BP 112/56; TEMP 97.6; O2SAT 97
[2023-10-14 05:02] LABS: HEMATOCRIT 36.4 % (36.0-47.0); HEMOGLOBIN 12.1 g/dl (12.0-15.5); MEAN CORPUSCULAR HEMOGLOBIN 31.7 pg (27.0-33.0); MEAN CORPUSCULAR HGB CONC 33.2 g/dl (32.0-36.5); MEAN CORPUSCULAR VOLUME 95.3 fl (80.0-96.0); PLATELET COUNT, AUTOMATED 141 10^3/uL (150-450); RED BLOOD COUNT 3.82 10^6/uL (4.00-5.40); WHITE BLOOD COUNT 7.2 10^3/uL (4.0-10.0)
[2023-10-14] MEDS: LevoFLOXacin 750 MG TABLET PO SCH (05:12)
[2023-10-14] MEDS: LEVOTHYROXINE 112MCG TABLET (0.112MG) PO SCH (05:12)
[2023-10-14 05:13] VITALS: BP 121/59; TEMP 97; O2SAT 97
[2023-10-14 05:22] LABS: ALBUMIN 2.9 G/DL (3.2-5.2); ALKALINE PHOSPHATASE 81 U/L (46-116); ALT/SGPT 17 U/L (7.0-40); AST/SGOT 23 U/L (<34); BILIRUBIN,TOTAL 0.2 MG/DL (0.3-1.2); BLOOD UREA NITROGEN 17 MG/DL (9-23); CALCIUM LEVEL 8.1 MG/DL (8.5-10.1); CARBON DIOXIDE LEVEL 28 MMOL/L (20-31); CHLORIDE LEVEL 103 MMOL/L (98-107); CREATININE FOR GFR 0.64 MG/DL (0.55-1.30); GLOMERULAR FILTRATION RATE > 60.0 (>51); GLUCOSE, FASTING 105 MG/DL (60-100); POTASSIUM SERUM 4.3 MMOL/L (3.5-5.1); SODIUM LEVEL 136 MMOL/L (136-145); TOTAL PROTEIN 5.7 G/DL (5.7-8.2)
[2023-10-14 06:10] LABS: ABG BASE EXCESS 3.1 (-2.0-2.0); ABG O2 SATURATION 93.4 % (95.0-99.0); ABG PARTIAL PRESSURE CO2 38.8 mmHg (35.0-45.0); ABG PARTIAL PRESSURE O2 65.4 mmHg (75.0-100.0); ABG STANDARD HCO3 27.1 MMOL/L. (22.0-26.0); ABG TOTAL CO2 28.2 MMOL/L (22.0-29.0)
[2023-10-14] MEDS: IPRATROPIUM 0.5MG/ALBUTEROL 2.5MG INH SOL UD 3ML (DUONEB) NEB SCH ×4 (07:13→19:50)
[2023-10-14 08:00] VITALS: BP 113/58; TEMP 98.3; O2SAT 93
[2023-10-14] MEDS: clonazePAM 1 MG TAB PO PRN ×2 (08:56→20:53)
[2023-10-14] MEDS: VENLAFAXINE **XR** 75MG CAPSULE PO SCH ×2 (08:56→20:53)
[2023-10-14] MEDS: ENOXAPARIN 40MG/0.4ML SYRINGE (J1650 PER 10MG) SC SCH (08:56)
[2023-10-14] MEDS: SYMBICORT 160/4.5MCG INHALER 6GM INH SCH ×2 (09:34→19:50)
[2023-10-14] MEDS ORDERED: COSYNTROPIN 0.25 MG/ML 1ML VIAL IV ONE (10:00)
[2023-10-14 12:00] VITALS: BP 110/61; TEMP 98.4; O2SAT 94
[2023-10-14 16:00] VITALS: BP 133/83; TEMP 97.3; O2SAT 95
[2023-10-14 20:00] VITALS: BP 112/61; TEMP 98.1; O2SAT 96
[2023-10-14] MEDS: methylPREDNISolone 40MG 1ML VIAL IV SCH (20:54)
[2023-10-15] MEDS: LevoFLOXacin 750 MG TABLET PO SCH (05:36)
[2023-10-15] MEDS: LEVOTHYROXINE 112MCG TABLET (0.112MG) PO SCH (05:36)
[2023-10-15 05:46] LABS: HEMATOCRIT 39.7 % (36.0-47.0); HEMOGLOBIN 13.3 g/dl (12.0-15.5); MEAN CORPUSCULAR HEMOGLOBIN 31.4 pg (27.0-33.0); MEAN CORPUSCULAR HGB CONC 33.5 g/dl (32.0-36.5); MEAN CORPUSCULAR VOLUME 93.9 fl (80.0-96.0); PLATELET COUNT, AUTOMATED 139 10^3/uL (150-450); RED BLOOD COUNT 4.23 10^6/uL (4.00-5.40); WHITE BLOOD COUNT 4.8 10^3/uL (4.0-10.0)
[2023-10-15 06:00] VITALS: BP 134/49; TEMP 98.8; O2SAT 97
[2023-10-15 06:07] LABS: ALKALINE PHOSPHATASE 84 U/L (46-116); ALT/SGPT 17 U/L (7.0-40); AST/SGOT 16 U/L (<34); BILIRUBIN,TOTAL 0.5 MG/DL (0.3-1.2); BLOOD UREA NITROGEN 12 MG/DL (9-23); CALCIUM LEVEL 8.4 MG/DL (8.5-10.1); CARBON DIOXIDE LEVEL 26 MMOL/L (20-31); CHLORIDE LEVEL 103 MMOL/L (98-107); CREATININE FOR GFR 0.58 MG/DL (0.55-1.30); GLOMERULAR FILTRATION RATE > 60.0 (>51); GLUCOSE, FASTING 100 MG/DL (60-100); POTASSIUM SERUM 4.1 MMOL/L (3.5-5.1); SODIUM LEVEL 136 MMOL/L (136-145); TOTAL PROTEIN 6.1 G/DL (5.7-8.2)
[2023-10-15] MEDS: IPRATROPIUM 0.5MG/ALBUTEROL 2.5MG INH SOL UD 3ML (DUONEB) NEB SCH (07:27)
[2023-10-15] MEDS: SYMBICORT 160/4.5MCG INHALER 6GM INH SCH (07:27)
[2023-10-15] MEDS: VENLAFAXINE **XR** 75MG CAPSULE PO SCH (10:03)
[2023-10-15] MEDS: ENOXAPARIN 40MG/0.4ML SYRINGE (J1650 PER 10MG) SC SCH (10:03)
[2023-10-15] MEDS: methylPREDNISolone 40MG 1ML VIAL IV SCH (10:03)
[2023-10-15] MEDS ORDERED: CLON1TAB8 PO (10:52)
[2023-10-15] MEDS ORDERED: HYDR-3363 PO (10:55)
[2023-10-15] MEDS ORDERED: PRED10TA2 PO (10:55)
[2023-10-15] MEDS ORDERED: LEVO1TAB40 PO (10:55)
== END 2023-10-15 12:08 | disposition home or self-care (01) | DRG 133 ==
LOC: M ED 10:20 → EDBD 10:20 → M ED INP 12:54 → ENRESERV 15:20 → M ICU 15:46 → M MSPAV 10-14 15:59
PROVIDERS: ADMIT Internal Medicine Pulmonary Disease; ATTEND Internal Medicine Nephrology
DX: J96.22 Acute and chronic respiratory failure with hypercapnia (principal); G93.41 Metabolic encephalopathy; J18.9 Pneumonia, unspecified organism; D80.4 Selective deficiency of immunoglobulin M [IgM]; I50.32 Chronic diastolic (congestive) heart failure; J44.0 Chronic obstructive pulmonary disease with (acute) lower respiratory infection; R13.10 Dysphagia, unspecified; I95.89 Other hypotension; J44.1 Chronic obstructive pulmonary disease with (acute) exacerbation; F13.20 Sedative, hypnotic or anxiolytic dependence, uncomplicated; F17.210 Nicotine dependence, cigarettes, uncomplicated; E03.9 Hypothyroidism, unspecified; I35.0 Nonrheumatic aortic (valve) stenosis; F40.01 Agoraphobia with panic disorder; R91.8 Other nonspecific abnormal finding of lung field; F19.10 Other psychoactive substance abuse, uncomplicated; F32.9 Major depressive disorder, single episode, unspecified; G44.221 Chronic tension-type headache, intractable; M54.50 Low back pain, unspecified; G89.29 Other chronic pain; F41.1 Generalized anxiety disorder; K58.9 Irritable bowel syndrome, unspecified; M79.10 Myalgia, unspecified site; M96.1 Postlaminectomy syndrome, not elsewhere classified; J98.4 Other disorders of lung; Z79.899 Other long term (current) drug therapy; Z79.890 Hormone replacement therapy

== ENCOUNTER → 2024-01-04 | Outpatient (CLI) | payer OTHER ==
[~2024-01-04] MED LIST changes: +HYDR-3363 PO; +LEVO1TAB40 PO
== END ==
LOC: M PLAIMG 10:34
PROVIDERS: ATTEND Internal Medicine Pulmonary Disease
DX: R91.8 Other nonspecific abnormal finding of lung field (principal)

== ENCOUNTER → 2024-01-05 | Outpatient (REF) | payer OTHER | LOC: M LAB REF 16:30 | PROVIDERS: ATTEND Physician Assistant | DX: Z79.899 Other long term (current) drug therapy (principal) ==

== ENCOUNTER 2024-01-31 10:26 | Emergency (ER) | payer OTHER ==
[~2024-01-31] VITALS: Ht 175.3 cm; Wt 74.2 kg
[2024-01-31 10:28] VITALS: BP 98/50; TEMP 96.6; O2SAT 97
[2024-01-31 11:17] LABS: BASO # 0.1 10^3/uL (0.0-0.2); BASO % 1.3 % (0.0-1.0); EOS # 0.1 10^3/uL (0.0-0.5); EOS % 1.7 % (0.0-3.0); HEMATOCRIT 42.4 % (36.0-47.0); HEMOGLOBIN 13.9 g/dl (12.0-15.5); LYMPH # 1.3 10^3/uL (1.5-5.0); LYMPH % 27.2 % (24.0-44.0); MEAN CORPUSCULAR HGB CONC 32.8 g/dl (32.0-36.5); MEAN CORPUSCULAR VOLUME 97.7 fl (80.0-96.0); MONO # 0.3 10^3/uL (0.0-0.8); NEUTROPHILS # 2.9 10^3/uL (1.5-8.5); NEUTROPHILS % 63.4 % (36.0-66.0); PLATELET COUNT, AUTOMATED 179 10^3/uL (150-450); RED BLOOD COUNT 4.34 10^6/uL (4.00-5.40); WHITE BLOOD COUNT 4.6 10^3/uL (4.0-10.0)
[2024-01-31 11:32] LABS: CK-MB VALUE MASS < 1.0 NG/ML (<3.6)
[2024-01-31 11:34] LABS: CPK CREATINE PHOSPHOKINASE 77 U/L (34-145); MB/CK RELATIVE INDEX 1.29 (< OR =4)
[2024-01-31 12:47] LABS: LIPASE 34 U/L (12-53)
[2024-01-31 12:50] LABS: ALBUMIN 3.5 G/DL (3.2-5.2); ALKALINE PHOSPHATASE 108 U/L (46-116); ALT/SGPT 16 U/L (7.0-40); AST/SGOT 24 U/L (<34); BILIRUBIN,DIRECT < 0.1 MG/DL (<0.4); BILIRUBIN,TOTAL 0.2 MG/DL (0.3-1.2); BLOOD UREA NITROGEN 11 MG/DL (9-23); CALCIUM LEVEL 8.4 MG/DL (8.5-10.1); CARBON DIOXIDE LEVEL 31 MMOL/L (20-31); CHLORIDE LEVEL 102 MMOL/L (98-107); GLOMERULAR FILTRATION RATE > 60.0 (>51); GLUCOSE, FASTING 84 MG/DL (60-100); POTASSIUM SERUM 4.7 MMOL/L (3.5-5.1); SODIUM LEVEL 133 MMOL/L (136-145); TOTAL PROTEIN 6.5 G/DL (5.7-8.2)
== END 2024-01-31 12:13 | disposition left against medical advice (07) ==
LOC: M ED 10:26
DX: Z53.21 Procedure and treatment not carried out due to patient leaving prior to being seen by health care provider (principal)

== ENCOUNTER 2024-02-25 14:41 | Inpatient (IN) | payer OTHER ==
[~2024-02-25] VITALS: Ht 175.3 cm; Wt 72.9 kg
[~2024-02-25 14:41] MED LIST changes: +DOXY-323 PO; -DOXY-443 PO
[2024-02-25] MEDS: ALBUTEROL SULFATE 2.5MG/0.5ML INH NEB SOLN INH ONE (15:06)
[2024-02-25] MEDS: IPRATROPIUM 0.5MG/ALBUTEROL 2.5MG INH SOL UD 3ML (DUONEB) NEB ONE (15:06)
[2024-02-25 15:25] LABS: ABG BASE EXCESS 2.2 (-2.0-2.0); ABG HCO3 28.2 MMOL/L (22.0-26.0); ABG O2 SATURATION 88.9 % (95.0-99.0); ABG PARTIAL PRESSURE CO2 49.7 mmHg (35.0-45.0); ABG PARTIAL PRESSURE O2 55.5 mmHg (75.0-100.0); ABG STANDARD HCO3 26.3 MMOL/L. (22.0-26.0); ABG TOTAL CO2 29.7 MMOL/L (22.0-29.0); ABG pH (ARTERIAL) 7.372 UNITS (7.350-7.450)
[2024-02-25 15:36] LABS: BASO % 0.2 % (0.0-1.0); EOS % 0.2 % (0.0-3.0); HEMATOCRIT 35.3 % (36.0-47.0); HEMOGLOBIN 11.3 g/dl (12.0-15.5); LYMPH # 1.2 10^3/uL (1.5-5.0); LYMPH % 18.3 % (24.0-44.0); MEAN CORPUSCULAR HEMOGLOBIN 31.7 pg (27.0-33.0); MEAN CORPUSCULAR VOLUME 99.2 fl (80.0-96.0); MONO # 0.6 10^3/uL (0.0-0.8); MONO % 8.9 % (2.0-8.0); NEUTROPHILS # 4.6 10^3/uL (1.5-8.5); NEUTROPHILS % 72.1 % (36.0-66.0); PLATELET COUNT, AUTOMATED 156 10^3/uL (150-450); RED BLOOD COUNT 3.56 10^6/uL (4.00-5.40); WHITE BLOOD COUNT 6.4 10^3/uL (4.0-10.0)
[2024-02-25 15:45] LABS: INR 1.12; PROTHROMBIN TIME 14.1 SECONDS (12.5-14.5)
[2024-02-25 16:01] LABS: ETHYL ALCOHOL (ETHANOL) < 0.003 % (0.000-0.010); SALICYLATE LEVEL < 3.0 MG/DL (<30)
[2024-02-25 16:02] LABS: ALBUMIN 3.3 G/DL (3.2-5.2); ALKALINE PHOSPHATASE 114 U/L (46-116); ALT/SGPT 44 U/L (7.0-40); AST/SGOT 66 U/L (<34); BILIRUBIN,DIRECT 0.1 MG/DL (<0.4); BILIRUBIN,TOTAL 0.3 MG/DL (0.3-1.2); BLOOD UREA NITROGEN 11 MG/DL (9-23); CALCIUM LEVEL 7.8 MG/DL (8.5-10.1); CARBON DIOXIDE LEVEL 33 MMOL/L (20-31); CHLORIDE LEVEL 100 MMOL/L (98-107); CPK CREATINE PHOSPHOKINASE 952 U/L (34-145); CREATININE FOR GFR 0.88 MG/DL (0.55-1.30); GLOMERULAR FILTRATION RATE > 60.0 (>51); GLUCOSE, FASTING 94 MG/DL (60-100); MB/CK RELATIVE INDEX 1.15 (< OR =4); POTASSIUM SERUM 3.6 MMOL/L (3.5-5.1); SODIUM LEVEL 136 MMOL/L (136-145); TOTAL PROTEIN 6.2 G/DL (5.7-8.2)
[2024-02-25 16:04] LABS: THYROID STIMULATING HORMONE 3.461 uIU/ML (0.55-4.78); THYROXINE (T4) 6.4 UG/DL (4.5-10.9)
[2024-02-25] MEDS ORDERED: ISOVUE-370 76% 100ML VIAL As Ordered ONE (16:14)
[2024-02-25] MEDS: methylPREDNISolone 125MG 2ML VIAL IV ONE (16:34)
[2024-02-25 16:59] LABS: CK-MB VALUE MASS 10.2 NG/ML (<3.6); MB/CK RELATIVE INDEX 1.21 (< OR =4)
[2024-02-25] MEDS: NS 1,000 ML IV ONE (17:05)
[2024-02-25] MEDS: cefTRIAXone SOD 1 GM in D5W MINI-BAG PLUS 50 ML IV ONE (18:05)
[2024-02-25 18:58] LABS: AMPHETAMINES LEVEL URINE NEGATIVE (NEGATIVE); BARBITURATES URINE NEGATIVE (NEGATIVE); CANNABINOIDS URINE NEGATIVE (NEGATIVE); COCAINE METABOLITE URINE NEGATIVE (NEGATIVE); METHADONE URINE NEGATIVE (NEGATIVE); OPIATES URINE NEGATIVE (NEGATIVE); PHENCYCLIDINE URINE NEGATIVE (NEGATIVE)
[2024-02-25 19:03] LABS: BENZODIAZEPINES URINE POSITIVE (NEGATIVE)
[2024-02-25] MEDS: AZITHROMYCIN INJ 500 MG, VIAL MATE ADAPTER 1 EACH in D5W 250 ML IV ONE (19:16)
[2024-02-25 19:32] LABS: PROCALCITONIN 0.48 ng/ml
[2024-02-25] MEDS ORDERED: CLON1TAB8 PO (19:32)
[2024-02-25] MEDS ORDERED: MIRA3350 PO (19:32)
[2024-02-25] MEDS ORDERED: HYDR-3363 PO (19:32)
[2024-02-25] MEDS ORDERED: HOME MED LIST COMPLETE! XX SCH (19:35)
[2024-02-25] MEDS: BUDESONIDE 0.5 MG/2 ML INHALATION SUSPENSION NEB SCH (21:11)
[2024-02-25] MEDS: IPRATROPIUM 0.5MG/ALBUTEROL 2.5MG INH SOL UD 3ML (DUONEB) NEB SCH (21:11)
[2024-02-25] MEDS: VENLAFAXINE **XR** 75MG CAPSULE PO SCH (22:11)
[2024-02-25] MEDS: BENZONATATE 100MG CAPSULE PO SCH (22:11)
[2024-02-25] MEDS: DOXYCYCLINE HYCLATE 100MG TABLET PO SCH (22:11)
[2024-02-25 22:30] VITALS: BP 100/52; TEMP 97.1; O2SAT 98
[2024-02-25 23:58] VITALS: BP 84/45; TEMP 97.3; O2SAT 97
[2024-02-26] VITALS (10 sets, daily range): BP systolic 88–129; BP diastolic 40–65; TEMP 96.6–97.6; O2SAT 95–98
[2024-02-26] MEDS: NS 1,000 ML IV ONE (00:26)
[2024-02-26] MEDS: NS 500 ML IV ONE (01:40)
[2024-02-26 05:31] LABS: HEMATOCRIT 32.4 % (36.0-47.0); HEMOGLOBIN 10.4 g/dl (12.0-15.5); LYMPH # 0.5 10^3/uL (1.5-5.0); LYMPH % 11.2 % (24.0-44.0); MEAN CORPUSCULAR HEMOGLOBIN 32.1 pg (27.0-33.0); MEAN CORPUSCULAR HGB CONC 32.1 g/dl (32.0-36.5); MONO # 0.2 10^3/uL (0.0-0.8); MONO % 4.5 % (2.0-8.0); NEUTROPHILS # 3.9 10^3/uL (1.5-8.5); NEUTROPHILS % 83.7 % (36.0-66.0); PLATELET COUNT, AUTOMATED 142 10^3/uL (150-450); RED BLOOD COUNT 3.24 10^6/uL (4.00-5.40); WHITE BLOOD COUNT 4.6 10^3/uL (4.0-10.0)
[2024-02-26] MEDS: LEVOTHYROXINE 112MCG TABLET (0.112MG) PO SCH (05:43)
[2024-02-26 06:03] LABS: IRON (FE) 12 UG/DL (50-170); PERCENT SATURATION 4.7 % (13.2-45.0); TOTAL IRON BINDING CAPACITY 256 UG/DL (250-425)
[2024-02-26 06:06] LABS: BLOOD UREA NITROGEN 10 MG/DL (9-23); CALCIUM LEVEL 7.1 MG/DL (8.5-10.1); CARBON DIOXIDE LEVEL 30 MMOL/L (20-31); CHLORIDE LEVEL 105 MMOL/L (98-107); CREATININE FOR GFR 0.62 MG/DL (0.55-1.30); FERRITIN 115.7 NG/ML (7.3-270.7); GLOMERULAR FILTRATION RATE > 60.0 (>51); GLUCOSE, FASTING 108 MG/DL (60-100); MAGNESIUM LEVEL 1.8 MG/DL (1.8-2.4); POTASSIUM SERUM 4.8 MMOL/L (3.5-5.1); SODIUM LEVEL 138 MMOL/L (136-145)
[2024-02-26] MEDS: ENOXAPARIN 40MG/0.4ML SYRINGE (J1650 PER 10MG) SC SCH (09:44)
[2024-02-26] MEDS: predniSONE 20 MG TAB PO SCH (09:44)
[2024-02-26] MEDS: clonazePAM 1 MG TAB PO PRN (14:58)
[2024-02-26] MEDS: cefTRIAXone SOD 2 GM in D5W MINI-BAG PLUS 50 ML IV SCH (18:38)
[2024-02-27] VITALS (11 sets, daily range): BP systolic 90–121; BP diastolic 41–59; TEMP 96.9–97.8; O2SAT 92–95
[2024-02-27 06:11] LABS: BASO % 0.4 % (0.0-1.0); EOS % 0.2 % (0.0-3.0); HEMATOCRIT 33.7 % (36.0-47.0); HEMOGLOBIN 10.9 g/dl (12.0-15.5); LYMPH # 1.2 10^3/uL (1.5-5.0); LYMPH % 21.4 % (24.0-44.0); MEAN CORPUSCULAR HEMOGLOBIN 31.6 pg (27.0-33.0); MEAN CORPUSCULAR HGB CONC 32.3 g/dl (32.0-36.5); MEAN CORPUSCULAR VOLUME 97.7 fl (80.0-96.0); MONO # 0.5 10^3/uL (0.0-0.8); MONO % 8.2 % (2.0-8.0); NEUTROPHILS # 3.8 10^3/uL (1.5-8.5); NEUTROPHILS % 69.3 % (36.0-66.0); PLATELET COUNT, AUTOMATED 145 10^3/uL (150-450); RED BLOOD COUNT 3.45 10^6/uL (4.00-5.40); WHITE BLOOD COUNT 5.5 10^3/uL (4.0-10.0)
[2024-02-27 06:37] LABS: BLOOD UREA NITROGEN 11 MG/DL (9-23); CALCIUM LEVEL 8.1 MG/DL (8.5-10.1); CARBON DIOXIDE LEVEL 30 MMOL/L (20-31); CHLORIDE LEVEL 103 MMOL/L (98-107); GLOMERULAR FILTRATION RATE > 60.0 (>51); GLUCOSE, FASTING 69 MG/DL (60-100); MAGNESIUM LEVEL 1.9 MG/DL (1.8-2.4); POTASSIUM SERUM 4.1 MMOL/L (3.5-5.1); SODIUM LEVEL 137 MMOL/L (136-145)
[2024-02-27] MEDS: FERROUS SULFATE 325MG TAB PO SCH (09:53)
[2024-02-27 17:09] LABS: MYCOPLASMA PNEUMONIAE IgG 127 U/mL (0-99); MYCOPLASMA PNEUMONIAE IgM <770 U/mL (0-769)
[2024-02-28] VITALS (27 sets, daily range): BP systolic 101–120; BP diastolic 49–71; TEMP 97.1–98.5; O2SAT 86–99
[2024-02-28 06:20] LABS: BASO % 0.2 % (0.0-1.0); EOS % 0.4 % (0.0-3.0); HEMATOCRIT 34.5 % (36.0-47.0); HEMOGLOBIN 11.2 g/dl (12.0-15.5); LYMPH # 1.2 10^3/uL (1.5-5.0); LYMPH % 25.9 % (24.0-44.0); MEAN CORPUSCULAR HGB CONC 32.5 g/dl (32.0-36.5); MEAN CORPUSCULAR VOLUME 95.6 fl (80.0-96.0); MONO # 0.6 10^3/uL (0.0-0.8); MONO % 12.4 % (2.0-8.0); NEUTROPHILS # 2.8 10^3/uL (1.5-8.5); NEUTROPHILS % 60.4 % (36.0-66.0); PLATELET COUNT, AUTOMATED 161 10^3/uL (150-450); RED BLOOD COUNT 3.61 10^6/uL (4.00-5.40); WHITE BLOOD COUNT 4.6 10^3/uL (4.0-10.0)
[2024-02-28 06:47] LABS: BLOOD UREA NITROGEN 10 MG/DL (9-23); CALCIUM LEVEL 8.2 MG/DL (8.5-10.1); CARBON DIOXIDE LEVEL 31 MMOL/L (20-31); CHLORIDE LEVEL 104 MMOL/L (98-107); CREATININE FOR GFR 0.69 MG/DL (0.55-1.30); GLOMERULAR FILTRATION RATE > 60.0 (>51); GLUCOSE, FASTING 76 MG/DL (60-100); MAGNESIUM LEVEL 1.6 MG/DL (1.8-2.4); POTASSIUM SERUM 3.6 MMOL/L (3.5-5.1); SODIUM LEVEL 140 MMOL/L (136-145)
[2024-02-28] MEDS: TIOTROPIUM INHALER/CAPSULE (SPIRIVA) INH SCH (07:20)
[2024-02-28] MEDS: MAGNESIUM OXIDE 400MG TAB (MAG-OX) PO SCH (09:12)
[2024-02-28] MEDS: MAG SULF 1GM/100ML (MAG RUN) 1 GM in IV 1 EA IV ONE (09:12)
[2024-02-28] MEDS: clonazePAM 0.5 MG TAB PO PRN (16:06)
[2024-02-28] MEDS: SENOKOT S TAB PO SCH (21:03)
[2024-02-29] VITALS (11 sets, daily range): BP systolic 114–128; BP diastolic 47–78; TEMP 97–98.4; O2SAT 92–99
[2024-02-29 07:14] LABS: BASO % 0.4 % (0.0-1.0); EOS % 0.6 % (0.0-3.0); HEMOGLOBIN 12.1 g/dl (12.0-15.5); LYMPH # 1.5 10^3/uL (1.5-5.0); LYMPH % 31.3 % (24.0-44.0); MEAN CORPUSCULAR HEMOGLOBIN 31.4 pg (27.0-33.0); MEAN CORPUSCULAR HGB CONC 33.6 g/dl (32.0-36.5); MEAN CORPUSCULAR VOLUME 93.5 fl (80.0-96.0); MONO # 0.5 10^3/uL (0.0-0.8); MONO % 9.9 % (2.0-8.0); NEUTROPHILS # 2.7 10^3/uL (1.5-8.5); NEUTROPHILS % 57.2 % (36.0-66.0); PLATELET COUNT, AUTOMATED 176 10^3/uL (150-450); RED BLOOD COUNT 3.85 10^6/uL (4.00-5.40); WHITE BLOOD COUNT 4.8 10^3/uL (4.0-10.0)
[2024-02-29 07:35] LABS: BLOOD UREA NITROGEN 8 MG/DL (9-23); CALCIUM LEVEL 8.4 MG/DL (8.5-10.1); CARBON DIOXIDE LEVEL 30 MMOL/L (20-31); CHLORIDE LEVEL 103 MMOL/L (98-107); CREATININE FOR GFR 0.69 MG/DL (0.55-1.30); GLOMERULAR FILTRATION RATE > 60.0 (>51); GLUCOSE, FASTING 72 MG/DL (60-100); MAGNESIUM LEVEL 1.7 MG/DL (1.8-2.4); POTASSIUM SERUM 3.7 MMOL/L (3.5-5.1); SODIUM LEVEL 140 MMOL/L (136-145)
[2024-02-29 08:41] LABS: ABG BASE EXCESS 1.9 (-2.0-2.0); ABG HCO3 25.5 MMOL/L (22.0-26.0); ABG O2 SATURATION 85.2 % (95.0-99.0); ABG PARTIAL PRESSURE CO2 36.3 mmHg (35.0-45.0); ABG STANDARD HCO3 25.9 MMOL/L. (22.0-26.0); ABG TOTAL CO2 26.6 MMOL/L (22.0-29.0); ABG pH (ARTERIAL) 7.464 UNITS (7.350-7.450)
[2024-02-29 08:42] LABS: ABG PARTIAL PRESSURE O2 49.1 mmHg (75.0-100.0)
[2024-02-29] MEDS: predniSONE 10MG TAB PO SCH (09:19)
[2024-02-29] MEDS: MAGNESIUM OXIDE 400MG TAB (MAG-OX) PO SCH (09:19)
[2024-02-29 13:17] LABS: BODY FLUID CULTURE Not indicated. (.); ORGANISM ID Not indicated. (.); SPECIMEN SOURCE Urine (.); URINE STREP PNEUMONIAE ANTIGEN Negative (Negative)
[2024-02-29 15:01] LABS: PROCALCITONIN 0.12 ng/ml
[2024-03-01 05:57] LABS: BASO % 0.6 % (0.0-1.0); EOS % 0.8 % (0.0-3.0); HEMATOCRIT 40.1 % (36.0-47.0); HEMOGLOBIN 13.4 g/dl (12.0-15.5); LYMPH # 1.5 10^3/uL (1.5-5.0); LYMPH % 30.3 % (24.0-44.0); MEAN CORPUSCULAR HEMOGLOBIN 31.4 pg (27.0-33.0); MEAN CORPUSCULAR HGB CONC 33.4 g/dl (32.0-36.5); MEAN CORPUSCULAR VOLUME 93.9 fl (80.0-96.0); MONO # 0.5 10^3/uL (0.0-0.8); MONO % 8.8 % (2.0-8.0); NEUTROPHILS % 58.9 % (36.0-66.0); PLATELET COUNT, AUTOMATED 191 10^3/uL (150-450); RED BLOOD COUNT 4.27 10^6/uL (4.00-5.40); WHITE BLOOD COUNT 5.1 10^3/uL (4.0-10.0)
[2024-03-01 06:24] LABS: BLOOD UREA NITROGEN 9 MG/DL (9-23); CALCIUM LEVEL 8.6 MG/DL (8.5-10.1); CARBON DIOXIDE LEVEL 30 MMOL/L (20-31); CHLORIDE LEVEL 100 MMOL/L (98-107); CREATININE FOR GFR 0.72 MG/DL (0.55-1.30); GLOMERULAR FILTRATION RATE > 60.0 (>51); GLUCOSE, FASTING 74 MG/DL (60-100); POTASSIUM SERUM 4.3 MMOL/L (3.5-5.1); SODIUM LEVEL 138 MMOL/L (136-145)
[2024-03-01 07:20] VITALS: BP 125/52; TEMP 97.7; O2SAT 97
[2024-03-01] MEDS: TORSEMIDE 20 MG TAB PO SCH (09:44)
[2024-03-01] MEDS ORDERED: DOXY100T PO (11:59)
[2024-03-01] MEDS ORDERED: CLON1TAB8 PO (11:59)
[2024-03-01] MEDS ORDERED: NYST-38 PO (11:59)
[2024-03-01] MEDS ORDERED: CEFD1CAP9 PO (11:59)
== END 2024-03-01 13:10 | disposition home or self-care (01) | DRG 137 ==
LOC: M ED 14:41 → M ED INP 18:53 → ENRESERV 20:37 → M PCU 22:32 → M MS5PR 02-29 10:44
PROVIDERS: ADMIT Student in an Organized Health Care Education/Training Program; ATTEND Internal Medicine Nephrology
PROC: B246ZZZ Ultrasonography of Right and Left Heart (ICD-10-PCS; principal; 2024-02-26)
DX: J15.0 Pneumonia due to Klebsiella pneumoniae (principal); J96.21 Acute and chronic respiratory failure with hypoxia; I95.89 Other hypotension; I50.32 Chronic diastolic (congestive) heart failure; D80.4 Selective deficiency of immunoglobulin M [IgM]; E27.40 Unspecified adrenocortical insufficiency; I95.9 Hypotension, unspecified; I50.812 Chronic right heart failure; J96.22 Acute and chronic respiratory failure with hypercapnia; I27.20 Pulmonary hypertension, unspecified; J13 Pneumonia due to Streptococcus pneumoniae; R16.0 Hepatomegaly, not elsewhere classified; I08.3 Combined rheumatic disorders of mitral, aortic and tricuspid valves; I65.23 Occlusion and stenosis of bilateral carotid arteries; R13.10 Dysphagia, unspecified; F13.20 Sedative, hypnotic or anxiolytic dependence, uncomplicated; R04.2 Hemoptysis; F32.A Depression, unspecified; F41.1 Generalized anxiety disorder; K58.1 Irritable bowel syndrome with constipation; J44.1 Chronic obstructive pulmonary disease with (acute) exacerbation; R29.6 Repeated falls; R53.81 Other malaise; R53.1 Weakness; M47.816 Spondylosis without myelopathy or radiculopathy, lumbar region; E03.9 Hypothyroidism, unspecified; E61.1 Iron deficiency; I44.0 Atrioventricular block, first degree; M54.50 Low back pain, unspecified; M96.1 Postlaminectomy syndrome, not elsewhere classified; M79.18 Myalgia, other site; D33.3 Benign neoplasm of cranial nerves; I95.1 Orthostatic hypotension; J44.0 Chronic obstructive pulmonary disease with (acute) lower respiratory infection; Z99.81 Dependence on supplemental oxygen; Z79.890 Hormone replacement therapy; Z79.899 Other long term (current) drug therapy; Z87.891 Personal history of nicotine dependence; Z88.8 Allergy status to other drugs, medicaments and biological substances; G89.29 Other chronic pain

== ENCOUNTER → 2024-04-17 | Outpatient (CLI) | payer OTHER ==
[~2024-04-17] MED LIST changes: +DOXY100T PO; +MIRA3350 PO
== END ==
LOC: M PLAIMG 09:45
PROVIDERS: ATTEND Internal Medicine Pulmonary Disease
DX: R91.8 Other nonspecific abnormal finding of lung field (principal)

== ENCOUNTER → 2024-06-21 | Outpatient (REF) | payer OTHER ==
[2024-06-25 12:13] LABS: HPV APTIMA Not Detected (Not Detected)
== END ==
LOC: M LAB REF 16:19
PROVIDERS: ATTEND Physician Assistant
DX: Z12.4 Encounter for screening for malignant neoplasm of cervix (principal); Z01.419 Encounter for gynecological examination (general) (routine) without abnormal findings; Z11.3 Encounter for screening for infections with a predominantly sexual mode of transmission

== ENCOUNTER 2024-11-05 00:37 | Emergency (ER) | payer OTHER ==
[~2024-11-05] VITALS: Ht 175.3 cm; Wt 77.3 kg
[~2024-11-05 00:37] MED LIST changes: +CLON1TAB17 PO; -DOXY-323 PO; +DOXY-441 PO
[2024-11-05 00:46] VITALS: BP 114/53; TEMP 96.4; O2SAT 89
== END 2024-11-05 00:55 | disposition left against medical advice (07) ==
LOC: M ED 00:37
DX: Z53.21 Procedure and treatment not carried out due to patient leaving prior to being seen by health care provider (principal)

== ENCOUNTER → 2024-11-21 | Outpatient (CLI) | payer OTHER ==
[2024-11-21 13:21] LABS: ALBUMIN 3.9 G/DL (3.2-5.2); ALKALINE PHOSPHATASE 97 U/L (35-104); ALT/SGPT 32 U/L (7.0-40); AST/SGOT 31 U/L (<34); BILIRUBIN,TOTAL 0.3 MG/DL (0.3-1.2); BLOOD UREA NITROGEN 9 MG/DL (9-23); CALCIUM LEVEL 8.8 MG/DL (8.5-10.1); CARBON DIOXIDE LEVEL 34 MMOL/L (20-31); CHLORIDE LEVEL 100 MMOL/L (98-107); CHOLESTEROL LEVEL 240 MG/DL (<200); CHOLESTEROL RISK RATIO 3.59 (<5); CREATININE FOR GFR 0.78 MG/DL (0.55-1.30); GLOMERULAR FILTRATION RATE > 60.0 (>51); GLUCOSE, FASTING 79 MG/DL (60-100); HDL CHOLESTEROL 66.7 MG/DL (>40); LDL CHOLESTEROL 115.3 MG/DL (<100); NON-HDL-C 173.3 MG/DL; POTASSIUM SERUM 4.7 MMOL/L (3.5-5.1); SODIUM LEVEL 138 MMOL/L (136-145); TOTAL PROTEIN 7.2 G/DL (5.7-8.2); TRIGLYCERIDES LEVEL 290 MG/DL (<150)
== END ==
LOC: M WUC 10:51
PROVIDERS: ATTEND Physician Assistant
DX: R74.01 Elevation of levels of liver transaminase levels (principal)

== ENCOUNTER → 2024-11-21 | Outpatient (CLI) | payer OTHER | LOC: M WUC 10:54 | PROVIDERS: ATTEND Internal Medicine Pulmonary Disease | DX: R91.8 Other nonspecific abnormal finding of lung field (principal) ==

== ENCOUNTER 2024-12-24 10:40 | Day surgery (SDC) | payer OTHER ==
[~2024-12-24] VITALS: Ht 175.3 cm; Wt 82.6 kg
[~2024-12-24 10:40] MED LIST changes: +NYST-38 SS
[2024-12-24] MEDS ORDERED: fentaNYL 100 MCG/2 ML INJECTION As Ordered ONE (12:08)
[2024-12-24] MEDS ORDERED: ePHEDrine SULFATE 25 MG/5 ML(5MG/ML) SYRINGE As Ordered ONE (12:18)
[2024-12-24] MEDS ORDERED: propofoL 200 MG/20 ML VIAL As Ordered ONE (12:22)
[2024-12-24] MEDS ORDERED: GLYCOPYRROLATE INJ 0.2 MG/ML 2 ML VIAL As Ordered ONE (12:22)
[2024-12-24 13:00] VITALS: TEMP 96.9; O2SAT 97
[2024-12-24 13:20] VITALS: BP 110/68
== END 2024-12-24 13:22 | disposition home or self-care (01) ==
LOC: M OPP 10:40
PROVIDERS: ATTEND Internal Medicine Gastroenterology
DX: Z12.11 Encounter for screening for malignant neoplasm of colon (principal); D12.0 Benign neoplasm of cecum; D12.2 Benign neoplasm of ascending colon; K63.89 Other specified diseases of intestine; R13.19 Other dysphagia; R10.13 Epigastric pain; Z88.8 Allergy status to other drugs, medicaments and biological substances; Z79.899 Other long term (current) drug therapy; R56.9 Unspecified convulsions; Z87.891 Personal history of nicotine dependence
CPT/HCPCS: 43235; 45385; 88305; J1596; J3010

== ENCOUNTER → 2025-02-18 | Outpatient (CLI) | payer OTHER ==
[2025-02-18 14:00] LABS: BASO % 0.9 % (0.0-1.0); EOS # 0.1 10^3/uL (0.0-0.5); EOS % 1.3 % (0.0-3.0); HEMOGLOBIN 13.2 g/dl (12.0-15.5); LYMPH # 1.4 10^3/uL (1.5-5.0); LYMPH % 30.6 % (24.0-44.0); MEAN CORPUSCULAR HGB CONC 30.7 g/dl (32.0-36.5); MEAN CORPUSCULAR VOLUME 100.9 fl (80.0-96.0); MONO # 0.4 10^3/uL (0.0-0.8); MONO % 9.3 % (2.0-8.0); NEUTROPHILS # 2.6 10^3/uL (1.5-8.5); NEUTROPHILS % 57.7 % (36.0-66.0); PLATELET COUNT, AUTOMATED 224 10^3/uL (150-450); RED BLOOD COUNT 4.26 10^6/uL (4.00-5.40); WHITE BLOOD COUNT 4.5 10^3/uL (4.0-10.0)
[2025-02-18 14:23] LABS: THYROID STIMULATING HORMONE 2.974 uIU/ML (0.55-4.78)
[2025-02-18 14:24] LABS: FREE T4 0.86 NG/DL (0.89-1.76)
== END ==
LOC: M WUC 11:33
PROVIDERS: ATTEND Physician Assistant
DX: D72.819 Decreased white blood cell count, unspecified (principal); M79.671 Pain in right foot; E03.9 Hypothyroidism, unspecified

== ENCOUNTER → 2025-05-08 | Outpatient (CLI) | payer OTHER ==
[~2025-05-08] MED LIST changes: +FURO20TA2 PO; +TRIL150T PO
== END ==
LOC: M WUC 11:42
PROVIDERS: ATTEND Student in an Organized Health Care Education/Training Program
DX: M17.12 Unilateral primary osteoarthritis, left knee (principal)

== ENCOUNTER → 2025-06-19 | Outpatient (REF) | payer OTHER | LOC: M LAB REF 17:14 | PROVIDERS: ATTEND Student in an Organized Health Care Education/Training Program | DX: F41.9 Anxiety disorder, unspecified (principal) ==

== ENCOUNTER → 2025-09-18 | Outpatient (REF) | payer OTHER ==
[~2025-09-18] MED LIST changes: -IBUP-1022 PO; +IBUP600T42 PO
== END ==
LOC: M LAB REF 16:52
PROVIDERS: ATTEND Student in an Organized Health Care Education/Training Program
DX: R82.5 Elevated urine levels of drugs, medicaments and biological substances (principal); Z79.899 Other long term (current) drug therapy